=== PATIENT | male | born 1980 | race Caucasian/White ===

== ENCOUNTER 2024-06-29 01:57 | Inpatient (IN) | payer OTHER, SELFPAY ==
[2024-06-28 17:09] VITALS: BP 152/83
[2024-06-28 17:40] LABS: % Eosinophils 1.8 % (0-6); % Immature Granulocytes 0.6 % (0-0.5); % Lymphocytes 18.5 % (20.5-51.1); % Monocytes 8.7 % (1.7-9.3); % Neutrophils 69.4 % (42.2-75.2); Absolute Basophils 0.1 10^3/uL (0-0.2); Absolute Eosinophils 0.2 10^3/uL (0-0.7); Absolute Immature Granulocytes 0.1 10^3/uL (0-0.05); Absolute Lymphocytes 1.6 10^3/uL (1.2-3.4); Absolute Monocytes 0.8 10^3/uL (0.1-0.6); Absolute Neutrophils 6.1 10^3/uL (1.4-6.5); Hemoglobin 15.9 g/dL (13.0-18.0); Mean Corp Hgb Conc. 31.8 g/dL (33.0-37.0); Mean Corpuscular Hgb 27.5 pg (27.0-31.0); Mean Corpuscular Volume 86.4 fL (80.0-94.0); Mean Platelet Volume 11.3 fL (7.4-10.4); Nucleated Red Blood Cells % 0 % (-); Platelet Count 205 10^3/uL (130-400); Red Blood Cell Count 5.79 10^6/uL (4.70-6.10); Red Cell Dist. Width 14.6 % (11.5-14.5); White Blood Cell Count 8.7 10^3/uL (4.8-10.8)
[2024-06-28 17:42] LABS: ALT (SGPT) 30 U/L (0-50); AST (SGOT) 37 U/L (17-59); Albumin 3.9 g/dl (3.5-5.0); Alkaline Phosphatase 59 U/L (38-126); Blood Urea Nitrogen 16 mg/dl (9-20); Calcium 8.7 mg/dl (8.4-10.2); Carbon Dioxide 35 mmol/L (22-30); Chloride 100 mmol/L (98-107); Glucose 240 mg/dl (70-99); Potassium 4.1 mmol/L (3.5-5.1); Sodium 141 mmol/L (135-145); Total Bilirubin 0.6 mg/dl (0.2-1.3); Total Protein 6.7 g/dl (6.3-8.2); eGFR > 60.00
[2024-06-28 18:00] LABS: NT-proBNP 343 pg/ml
[2024-06-28 19:52] VITALS: BMI 60.2
[2024-06-28 20:00] VITALS: BP 151/90
--- NOTE | 2024-06-28 20:25 | PHANOTE ---
med [employer] tech(06/28/24)-Medication list compiled with pharmacy records in [facility], went over with patient to confirm most medications. Patient states he takes all medications in 1 dose around 1900 every day, and skips second dose on BID
medications.
--- NOTE | 2024-06-28 20:25 | ED.GENMED ---
History of Present Illness
<CAREN Quintana - Last Filed: 06/29/24 10:27>
General
Chief Complaint: Swelling
Source: patient
Exam Limitations: none
Time Seen by Provider: 06/28/24 19:56
Nursing documentation reviewed up to this point in time: agreed with
History of Present Illness
History of Present Illness:
Patient is a 44-year-old male past medical history of bipolar disorder PTSD presents to the ER for evaluation. Patient reports since February he has had increasing lower extremity swelling. He reports he has gained 60 pounds in the past 3 months is
now having difficulty getting around and walking is also short of breath. He was seen by his family doctor and was prescribed antibiotic and is on a water pill.
He denies any cardiac history.
Past History
<CAREN Quintana - Last Filed: 06/29/24 10:27>
Past History
ED Past Medical History: HTN, NIDDM and Psychiatric (Bipolar)
Social History
Tobacco: Non-smoker
Living: with family
Employment: Employed
Review of Systems
<CAREN Quintana - Last Filed: 06/29/24 10:27>
Review of Systems
Allergies reviewed?: Yes
All Other Systems: ROS reviewed and negative except as documented in HPI and ROS
Constitutional: Reports no symptoms
Phy Exam
<CAREN Quintana - Last Filed: 06/29/24 10:27>
General Physical Exam
General Presentation: no apparent distress
General age: appears older than age
General Skin: warm and dry
General Habitus: obese
General Mental: alert
General Hydration: appears well hydrated
Cardiovascular Exam
Cardiovascular Exam: regular rate/rhythm, no murmur and normal peripheral pulses
Pulmonary Exam
Pulmonary Exam: lungs clear and no respiratory distress
Neurological Exam
Neurological Exam: alert and oriented x3
Musculoskeletal Exam
Musculoskeletal Exam: other ( + swelling to b/l l/e into scrotum and abdomen ; abdomen and scrotum mildly red )
Skin Exam
Skin Exam: normal color and warm/dry
Psychiatric Exam
Psychiatric Exam: normal mood/affect
Scores
<CAREN Quintana - Last Filed: 06/29/24 10:27>
Heart Failure Risk
Heart Failure Risk Score: Not Applicable
Course
<CAREN Quintana - Last Filed: 06/29/24 10:27>
Orders/Labs/Results
Orders:
Orders
06/28/24 17:21
Complete Blood Count/With Diff Urgent
Comprehensive Metabolic Panel Urgent
NT-proBNP Urgent
TSH Reflex To Free T4 Urgent
Comment: ADD ON
06/28/24 20:00
Oxygen Therapy [O2 Therapy] [RESP] Urgent
Nasal Cannula Liter Flow: 2 LPM
Titrate/Wean O2 to maintain O2 sat greater than (%): 93
Wean Oxygen to Pre Admission Baseline Therapy-if applicable: Yes
Contact provider if nasal cannula O2 requirement > 6 liters: Yes
06/28/24 20:03
Electrocardiogram (*1) Urgent
Reason for Study: Shortness of Breath
EKG- Treatment ONCE
06/28/24 20:16
CXR2 [CR Chest - 2 Views ] Urgent
Comment:
Reason For Exam: shortness of breath and cough
06/28/24 20:26
Troponin I Urgent
06/28/24 21:18
CT Abd/pelvis W Iv Cont Urgent
Comment:
Reason For Exam: anascara
06/28/24 21:41
Furosemide [Lasix] 40 mg IV NOW STA
06/29/24 01:24
Add On- LAB Urgent
Tests Added?: TSH Reflex Free T4
06/29/24 01:26
Admit/Transfer Patient As Directed
Co-Sign Provider:
Level of Care: Inpatient admission
Assign to:: Telemetry
Physician / Group: Zacarias
Diagnosis: Anasarca
Reason for Telemetry: Acute Heart Failure
Date to Stop Telemetry: 07/02/24
Time to Stop Telemetry: 11:00
Reason for Hospitalization: Anasarca
Expected length of stay greater than two midnights?: Yes
ELOS- Estimated Length of Stay in days: 3
I certify the patient meets the requirements for IP care: Yes
PRN Pain Medication Management As Directed
May give lesser potent ordered pain med per pt: Yes
preference::
Protocol:: Medication orders for pain may be administered in a
manner that supports deferring to patient preference
when the pt is:
- Requesting an ordered lesser potent pain medication.
Least to most potent pain medications are defined
as: acetaminophen < NSAID < tramadol < opioids
(morphine, oxycodone, hydromorphone).
- Requesting a lesser dose of the same medication IF
ORDERED.
- Requesting a less intrusive route of administration
if both routes are prescribed by the provider (PO <
IV).
06/29/24 01:27
Code Status As Directed
Resuscitation Status: Full Code
06/29/24 01:57
Nicotine [Nicoderm Transdermal] 21 mg TRANSDERM NOW STA
06/29/24 03:53
Acetaminophen [Tylenol] 650 mg PO Q4HPRN PRN
Clonazepam [Klonopin] 0.5 mg PO Q6HPRN PRN
Dextrose 50%-Water [Dextrose 50% Syringe] 12.5 grams IV [id number] PRN
Glucagon [GlucaGen] 1 mg IM PRN PRN
06/29/24 03:53
Echo 2D MMode Doppler [Echo 2D MMode Color/Doppler] Routine
Reason for Study: Anasarca
CARDIOLOGY CONSULT Routine
Consulting Provider: Yvon Mak
Was physician already notified: No
Reason for consult: CHF
Consult Notification Routine
Specialty to Notify: Cardiology
Consult Notification Routine
Specialty to Notify: Pulmonary
PULMONARY CONSULT Routine
Consulting Provider: Shadi Hodge
Was physician already notified: No
Reason for consult: OHS / AHMET
Urine Protein/Creat Ratio (Random) [Protein/Creat Ratio (Random)] Routine
Activity As Directed
Activity Level: Ambulate
With Assistance
Bedside Glucose Monitoring As Directed
Frequency: AC&HS
Additional Instructions:: Change to q6h if pt on TPN, tube feeding or not eating
Bladder Scan As Directed
Follow Bladder Retention/Intermittent Cath Algorithm?: Yes
PRN if no void in __ hours: 6
Frequency: Per Retention Algorithm
If Bladder Scan Result >: 400
then:: Straight cath
EKG with chest pain [ECG as needed] As Directed
ECG as needed for:: Chest Pain
I/O [Intake/ Output] As Directed
Frequency: Per unit guidelines
Straight Cath As Directed
Frequency: Per Retention Algorithm
Additional Instructions: straight cath as needed per acute urinary retention algorithm for 24 hrs
Additional Instructions: for bladder scan greater than 400 mL
Vital Signs As Directed
Frequency: Per unit guidelines
Weight As Directed
Frequency: Daily
Oxygen Therapy [O2 Therapy] [RESP] Routine
Titrate/Wean O2 to maintain O2 sat greater than (%): 94
Ot Eval And Treat Routine
PT Consult [Pt Eval And Treat] Routine
Activity Level: Ambulate
With Assistance
DX Deep Vein Thrombosis Video Routine
06/29/24 Breakfast
2000 calorie (17 carb) Diabetic
At Your Request: Full Participation
Does patient need a safe tray?: No
Fluid Restriction: 1440 mL/day (48 oz)
06/29/24 06:18
Basic Metabolic Panel IN AM
Cardiovascular Evaluation IN AM
Complete Blood Count/No Diff IN AM
Glycohemoglobin (HgbA1c) IN AM
06/29/24 07:30
Insulin Aspart Corrective Low [Novolog Flexpen-Low Resistance] See Protocol SC AC
06/29/24 08:00
Enoxaparin Sodium [Lovenox] 40 mg SC BID
Furosemide [Lasix] 40 mg IV BID AT 0800,1600
06/29/24 19:00
Atorvastatin [Lipitor] 10 mg PO DAILY@1900
Clonidine [Catapres] 0.3 mg PO DAILY@1900
ziprasidone HCl 80 mg PO DAILY@1900
07/02/24 11:00
DC Protocol for Telemetry ONCE
Abnormal Lab Results
06/28/24
17:21
MCHC 31.8 L g/dL
(33.0-37.0)
RDW 14.6 H %
(11.5-14.5)
MPV 11.3 H fL
(7.4-10.4)
Abs Immat Gran (auto) 0.1 H 10^3/uL
(0-0.05)
Absolute Monos (auto) 0.8 H 10^3/uL
(0.1-0.6)
Immature Gran % 0.6 H %
(0-0.5)
Lymphocytes % 18.5 L %
(20.5-51.1)
Carbon Dioxide 35 H mmol/L
(22-30)
Glucose 240 H mg/dl
(70-99)
06/28/24 17:21
06/28/24 17:21
Vital Signs
Initial and Last Documented VS:
Initial Vital Signs
Temp Pulse Resp BP Pulse Ox
98.6 F 82 16 152/83 92
06/28/24 17:09 06/28/24 17:09 06/28/24 17:09 06/28/24 17:09 06/28/24 17:09
Last Documented Vital Signs
Temp Pulse Resp BP Pulse Ox
98.3 F 86 20 138/78 94
06/29/24 09:50 06/29/24 09:53 06/29/24 09:50 06/29/24 09:53 06/29/24 07:55
Walking Dragline Operator consulted with Physician
Walking Dragline Operator consulted with physician?: Yes
Name of Physician Consulted: gordy
<Libia Valente MD - Last Filed: 06/29/24 01:52>
Orders/Labs/Results
Orders:
Orders
06/28/24 17:21
Complete Blood Count/With Diff Urgent
Comprehensive Metabolic Panel Urgent
NT-proBNP Urgent
TSH Reflex To Free T4 Urgent
Comment: ADD ON
06/28/24 20:00
Oxygen Therapy [O2 Therapy] [RESP] Urgent
Nasal Cannula Liter Flow: 2 LPM
Titrate/Wean O2 to maintain O2 sat greater than (%): 93
Wean Oxygen to Pre Admission Baseline Therapy-if applicable: Yes
Contact provider if nasal cannula O2 requirement > 6 liters: Yes
06/28/24 20:03
Electrocardiogram (*1) Urgent
Reason for Study: Shortness of Breath
EKG- Treatment ONCE
06/28/24 20:16
CXR2 [CR Chest - 2 Views ] Urgent
Comment:
Reason For Exam: shortness of breath and cough
06/28/24 20:26
Troponin I Urgent
06/28/24 21:18
CT Abd/pelvis W Iv Cont Urgent
Comment:
Reason For Exam: anascara
06/28/24 21:41
Furosemide [Lasix] 40 mg IV NOW STA
06/29/24 01:24
Add On- LAB Urgent
Tests Added?: TSH Reflex Free T4
06/29/24 01:26
Admit/Transfer Patient As Directed
Co-Sign Provider:
Level of Care: Inpatient admission
Assign to:: Telemetry
Physician / Group: Zacarias
Diagnosis: Anasarca
Reason for Telemetry: Acute Heart Failure
Date to Stop Telemetry: 07/02/24
Time to Stop Telemetry: 11:00
Reason for Hospitalization: Anasarca
Expected length of stay greater than two midnights?: Yes
ELOS- Estimated Length of Stay in days: 3
I certify the patient meets the requirements for IP care: Yes
PRN Pain Medication Management As Directed
May give lesser potent ordered pain med per pt: Yes
preference::
Protocol:: Medication orders for pain may be administered in a
manner that supports deferring to patient preference
when the pt is:
- Requesting an ordered lesser potent pain medication.
Least to most potent pain medications are defined
as: acetaminophen < NSAID < tramadol < opioids
(morphine, oxycodone, hydromorphone).
- Requesting a lesser dose of the same medication IF
ORDERED.
- Requesting a less intrusive route of administration
if both routes are prescribed by the provider (PO <
IV).
06/29/24 01:27
Code Status As Directed
Resuscitation Status: Full Code
06/29/24 01:57
Nicotine [Nicoderm Transdermal] 21 mg TRANSDERM NOW STA
06/29/24 03:53
Acetaminophen [Tylenol] 650 mg PO Q4HPRN PRN
Clonazepam [Klonopin] 0.5 mg PO Q6HPRN PRN
Dextrose 50%-Water [Dextrose 50% Syringe] 12.5 grams IV [id number] PRN
Glucagon [GlucaGen] 1 mg IM PRN PRN
06/29/24 03:53
Echo 2D MMode Doppler [Echo 2D MMode Color/Doppler] Routine
Reason for Study: Anasarca
CARDIOLOGY CONSULT Routine
Consulting Provider: Yvon Mak
Was physician already notified: No
Reason for consult: CHF
Consult Notification Routine
Specialty to Notify: Cardiology
Consult Notification Routine
Specialty to Notify: Pulmonary
PULMONARY CONSULT Routine
Consulting Provider: Shadi Hodge
Was physician already notified: No
Reason for consult: OHS / AHMET
Urine Protein/Creat Ratio (Random) [Protein/Creat Ratio (Random)] Routine
Activity As Directed
Activity Level: Ambulate
With Assistance
Bedside Glucose Monitoring As Directed
Frequency: AC&HS
Additional Instructions:: Change to q6h if pt on TPN, tube feeding or not eating
Bladder Scan As Directed
Follow Bladder Retention/Intermittent Cath Algorithm?: Yes
PRN if no void in __ hours: 6
Frequency: Per Retention Algorithm
If Bladder Scan Result >: 400
then:: Straight cath
EKG with chest pain [ECG as needed] As Directed
ECG as needed for:: Chest Pain
I/O [Intake/ Output] As Directed
Frequency: Per unit guidelines
Straight Cath As Directed
Frequency: Per Retention Algorithm
Additional Instructions: straight cath as needed per acute urinary retention algorithm for 24 hrs
Additional Instructions: for bladder scan greater than 400 mL
Vital Signs As Directed
Frequency: Per unit guidelines
Weight As Directed
Frequency: Daily
Oxygen Therapy [O2 Therapy] [RESP] Routine
Titrate/Wean O2 to maintain O2 sat greater than (%): 94
Ot Eval And Treat Routine
PT Consult [Pt Eval And Treat] Routine
Activity Level: Ambulate
With Assistance
DX Deep Vein Thrombosis Video Routine
06/29/24 Breakfast
2000 calorie (17 carb) Diabetic
At Your Request: Full Participation
Does patient need a safe tray?: No
Fluid Restriction: 1440 mL/day (48 oz)
06/29/24 06:18
Basic Metabolic Panel IN AM
Cardiovascular Evaluation IN AM
Complete Blood Count/No Diff IN AM
Glycohemoglobin (HgbA1c) IN AM
06/29/24 07:30
Insulin Aspart Corrective Low [Novolog Flexpen-Low Resistance] See Protocol SC AC
06/29/24 08:00
Enoxaparin Sodium [Lovenox] 40 mg SC BID
Furosemide [Lasix] 40 mg IV BID AT 0800,1600
06/29/24 19:00
Atorvastatin [Lipitor] 10 mg PO DAILY@1900
Clonidine [Catapres] 0.3 mg PO DAILY@1900
ziprasidone HCl 80 mg PO DAILY@1900
07/02/24 11:00
DC Protocol for Telemetry ONCE
Abnormal Lab Results
06/28/24
17:21
MCHC 31.8 L g/dL
(33.0-37.0)
RDW 14.6 H %
(11.5-14.5)
MPV 11.3 H fL
(7.4-10.4)
Abs Immat Gran (auto) 0.1 H 10^3/uL
(0-0.05)
Absolute Monos (auto) 0.8 H 10^3/uL
(0.1-0.6)
Immature Gran % 0.6 H %
(0-0.5)
Lymphocytes % 18.5 L %
(20.5-51.1)
Carbon Dioxide 35 H mmol/L
(22-30)
Glucose 240 H mg/dl
(70-99)
06/28/24 17:21
06/28/24 17:21
Vital Signs
Initial and Last Documented VS:
Initial Vital Signs
Temp Pulse Resp BP Pulse Ox
98.6 F 82 16 152/83 92
06/28/24 17:09 06/28/24 17:09 06/28/24 17:09 06/28/24 17:09 06/28/24 17:09
Last Documented Vital Signs
Temp Pulse Resp BP Pulse Ox
98.3 F 86 20 138/78 94
06/29/24 09:50 06/29/24 09:53 06/29/24 09:50 06/29/24 09:53 06/29/24 07:55
<CAREN Quintana - Last Filed: 06/29/24 10:27>
MDM/Problems Addressed
MDM/Problems Addressed:
Patient is a 44-year-old male who presents to the ER for evaluation of increasing swelling to abdomen testicles and lower extremities. He reports he is gained 60 pounds in the past 3 days have a difficulty walking caring for himself. On exam he is
mildly hypoxic however likely from girth. Nasal cannula oxygen was applied. He denies any fevers his white count is normal,, his chemistries are normal his BNP is 343. BS elevated .
Examined with DR Valente will order ct of abdomen.
Will order IV Lasix. Care of patient at this time transferred to DR Valente
<CAREN Quintana - Last Filed: 06/29/24 10:27>
*Critical Care Note
Total Time (30-74mins, 75-104mins- exclusive of procedures): Not Applicable
ED Attending Note
<CAREN Quintana - Last Filed: 06/29/24 10:27>
-
Portions of this chart may have been created with voice recognition software.� Occasional wrong word or��sound alike� substitutions may have occurred due to the inherent limitations of voice recognition software.
<Libia Valente MD - Last Filed: 06/29/24 01:52>
ED Attending Note
Patient seen and examined by attending physician: Yes
I performed the substantive portion of visit, reviewed & personally made and approve the management plan that is documented in note by myself or LEONORA.: Yes
ED Attending Note:
44-year-old male with progressive weight gain of up to 60 pounds over the last several months associated with scrotal swelling and abdominal swelling. Patient having difficulty performing ADLs, hygiene, etc. due to limitations caused by swelling.
To me denies dyspnea, cough, sore throat, rhinorrhea, fever, chills. He can urinate but only if he sits down. On exam, patient appears to have anasarca, scrotal swelling noted.
ct REPORT (VISION) no definite acute finding, no ascites, liver enlarged with probably steatosis and cirrhosis not excluded. Nl spleen size. No venous distention to suggest gross thrombosis.
Pt with progressive anasarca, without assoc ascites. Concerns related to ?etiology, mild hypoxia, inability to care for self fully at home due to increasing weight, and ?mild cellulitis at scrotal area extend sl superiorly. Do not clinically
suspect Meagan's.
D/w Dr Adames, will admit.
Of note, pt requesting cigarette, will leave AMA if can not have one now. Reluctantly, we will try to have security accompany pt to car to have one, then return for continued care and nicotine patch.
Discharge Plan
Departure
Patient Disposition: Admit
Date of Disposition: 06/29/24
Time of Disposition: 01:52
Presentation/result/management discussed w/ accepting MD/DO: Hospitalist
Condition: Fair
Discharge Problem:
Anasarca
Interventions
Interventions:
*Risk Screen - Suicide Last Done: 06/29/24 04:22
*General Assessment Last Done: 06/28/24 19:54
*Neglect/Abuse Screening Last Done: 06/28/24 17:13
ED- Fall Risk Assessment Last Done: 06/28/24 20:08
*ED COVID-19 Vaccine History Last Done: 06/29/24 04:22
*Nursing Disposition Last Done: 06/29/24 02:52
ED- Cardiac Assessment Last Done: 06/28/24 20:08
ED- Pulmonary Assessment Last Done: 06/28/24 20:08
ED-Skin Assessment Last Done: 06/28/24 20:08
Discharge Date and Time
Discharge Date/Time: 06/29/24 03:48
[2024-06-28 20:59] LABS: Troponin I < 0.012 ng/ml
[2024-06-28 21:00] VITALS: BP 137/72
[2024-06-28 22:01] VITALS: BP 125/78
[2024-06-28 23:00] VITALS: BP 126/78
[2024-06-28] MEDS: LASIX 40 MG IV (23:40)
[2024-06-29] VITALS (10 sets, daily range): BP systolic 101–178; BP diastolic 46–88; PULSE 86; O2SAT 96; BMI 58.7
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
[2024-06-29] MEDS: NICODERM TRANSDERMAL 21 MG TRANSDERM ×2 (02:03→21:28)
[2024-06-29 06:56] LABS: Hematocrit 49.6 % (39.0-52.0); Hemoglobin 15.4 g/dL (13.0-18.0); Mean Corpuscular Hgb 27.3 pg (27.0-31.0); Mean Corpuscular Volume 87.8 fL (80.0-94.0); Mean Platelet Volume 10.9 fL (7.4-10.4); Platelet Count 200 10^3/uL (130-400); Red Blood Cell Count 5.65 10^6/uL (4.70-6.10); Red Cell Dist. Width 14.6 % (11.5-14.5); White Blood Cell Count 10.2 10^3/uL (4.8-10.8)
[2024-06-29 07:10] LABS: Glucose - Point of Care 130 mg/dl (70-99)
[2024-06-29] MEDS: NOVOLOG FLEXPEN-LOW RESISTANCE SC ×2 (07:30→17:15)
[2024-06-29 07:34] LABS: Blood Urea Nitrogen 14 mg/dl (9-20); Calcium 8.5 mg/dl (8.4-10.2); Carbon Dioxide 38 mmol/L (22-30); Chloride 97 mmol/L (98-107); Estimated Creatinine Clearance > 125 ml/min; Glucose 128 mg/dl (70-99); HDL Cholesterol 31 mg/dl; LDL Cholesterol, Calculated 56 mg/dl; Potassium 3.9 mmol/L (3.5-5.1); Sodium 142 mmol/L (135-145); Total Cholesterol 115 mg/dl (50-199); Triglyceride 141 mg/dl (10-149); Very Low Density Lipoprotein 28 mg/dl (0-30); eGFR > 60.00
--- NOTE | 2024-06-29 07:41 | W.PN.HOSP.TC ---
Today's Communication/Plan
-
cont diuresis
blood pressure control
nocturnal oxygenation study, ABG in AM
PT/OT
Assessment / Plan
Assessment / Plan
Physical Exam
General: no acute distress. Appears comfortable at this time Morbidly Obese
HEENT: Thick neck. No noted JVD. No evident thyromegaly / nodules
Respiratory: Clear to auscultation. No wheezes crackles rhonchi
Cardiac: S1/S2 and Regular Rhythm; No Murmur
GI: Non Tender, Normal Bowel Sounds Induration / mild erythema / abdominal wall edema in the lower abdomen
Musculoskeletal: lower ext pitting edema +2 b/l
Neuro: AO x 3
A/P: Patient is a 44y M with PMH significant for PTSD and obesity who presents to ED complaining of progressive LE edema and fatigue x several months.
Anasarca
- Admit for further evaluation and treatment.
- Renal function appears normal on initial labs.
- Differential includes hepatic failure / cirrhosis, CHF, thyroid impairment, etc.
- TSH wnl
- ECHO pending
-Cardiology eval appreciated cont IV diuresis
- Body habitus is suspicious for AHMET and likely obesity hypoventilation as well.
- Pulmonary eval appreciated nocturnal oxygenation study, ABG in AM
- I/Os, daily weights
Hypoxemic Respiratory Insufficiency resolved (possibly 2/2 heart failure)
- SpO2 in the ED 88% on room air and improved on supplemental oxygen.
- No subjective complaints of dyspnea at rest.
- weaned off oxygen supplementation
- Echo / Pulm eval as noted above.
Benign Hypertension
- BP stable at present.
- Hold most BP medication to allow for effective diuresis.
- Adjust regimen as needed for adequate control.
- Hold amlodipine given significant edema.
-valsartan bystolic resumed as per cardio
- cont clonidine
DM-II
- Elevated glucose on initial labs.
- Discontinue pioglitazone which exacerbates volume overload.
- Hold other PO medications acutely.
- SSI coverage.
- A1C. appreciated 9.7
Bipolar Disorder
PTSD
- Continue current med regimen including Zonegran, clonidine, etc.
- Clonazepam changed to PRN.
- Follow for any changes in mood / new symptoms.
Morbid Obesity
- Weight gain of 60 lbs in the past year.
- Affects all aspects of care and evaluate for obesity related breathing issues as noted above.
- Encourage healthy diet and increased activity with goal of weight loss.
PT/OT home with home services
DVT Prophylaxis: High dose Lovenox given BMI.
Code Status: Full
I spent a total of 50 minutes with the patient or on the floor. More than 50% of this time involved counseling and coordination of care.
Anticipated Discharge: 24 - 48 hours
Subjective/Interval History
-
Date of Service: June 29, 2024
No acute distress ambulating without issues. Reports overall improvement in symptoms including shortness of breath.
Objective Data
-
Labs:
Laboratory Results
06/29/24
06:18
WBC 10.2
Hgb 15.4
Hct 49.6
Plt Count 200
Sodium 142
Potassium 3.9
Chloride 97 L
Carbon Dioxide 38 H
BUN 14
Creatinine 0.8
Glucose 128 H
Calcium 8.5
Vital Signs:
Vital Signs
Temp Pulse Resp BP Pulse Ox
98.2 F 82 24 124/77 95
06/29/24 04:15 06/29/24 04:15 06/29/24 04:15 06/29/24 04:15 06/29/24 04:55
I&O
06/28/24 06/29/24 06/30/24
06:59 06:59 05:59
Output Total 650 / 650
Balance -650 / -650
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
[2024-06-29] MEDS: LASIX 40 MG IV ×2 (08:32→16:08)
[2024-06-29] MEDS: LOVENOX 40 MG SC ×2 (08:33→20:45)
[2024-06-29 08:35] LABS: Glycohemoglobin (HgbA1c) 8.7 % (4.0-5.6)
[2024-06-29] MEDS: DESENEX/MITRAZOL/ZEASORB 1 APPLIC TOPICAL ×2 (09:52→20:45)
[2024-06-29] MEDS: DIOVAN 80 MG PO (09:53)
[2024-06-29 11:46] LABS: Glucose - Point of Care 154 mg/dl (70-99)
[2024-06-29] MEDS: NOVOLOG FLEXPEN-LOW RESISTANCE 1 UNITS SC (12:20)
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
[2024-06-29] MEDS: TYLENOL 650 MG PO ×2 (13:51→20:54)
--- NOTE | 2024-06-29 14:10 | CON.PUL ---
Consultation
Consultation Request
Date/Time Consultation Requested: 06/29
Date/Time Consultation Performed: 06/29
Reason for Consultation: Possible sleep apnea
Medical History
-
History of Present Illness:
History obtained from the chart and from the patient. Patient is a 44-year-old male with history of bipolar disorder, PTSD. He admits to gaining 60 pounds over the past year. He is taking care of his elderly mother who is sick but he states that
this will be ending soon. He notes increased lower extremity swelling, fatigue. He also admits to excessive daytime sleepiness. He denies any falls, obvious PND, orthopnea. He normally sleeps on his side. Upon arrival to [facility],
afebrile, pulse 82, breathing at 16, blood pressure 152/83, 92%. Serum bicarbonate noted to be 38. Troponin negative. We are asked to comment on pulmonary process
Patient states he has had 'multiple' sleep studies in the past. He was told he does not have sleep apnea. 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 He also admits to night terrors and insomnia. He is never seen a sleep
specialist
.
PMH: History of PTSD, morbid obesity, hypertension, diabetes, bipolar disorder.
Past Medical History
Past Medical History: None (See above)
Past Surgical History: None (See above)
Social History
Tobacco: Smoker (2 packs a day for 20 years, [id number] ongoing)
Alcohol: None
Drug: None
Personal: Single
Living: With Family (Lives with his mother)
Employment: Not Employed
Family History
Family History: Other (No family history of lung disease)
Allergies / Home Medications
Allergies
Allergy/AdvReac Type Severity Reaction Status Date / Time
whole milk Allergy Hives Uncoded 06/21/19 12:09
Home Medications
�Medication �Instructions �Recorded �Confirmed �Last Taken �Type
jwlttzp-nkzvthlrg-ybsa 333 mg-133 1 ea PO DAILY@1900 Supplement 06/24/16 06/28/24 06/24/16 History
mg-8.3 mg tablet
clonazepam 1 mg tablet 1 mg PO DAILY@1900 Mental 06/24/16 06/28/24 06/24/16 History
Health/Anxiety
clonidine HCl 0.3 mg tablet 0.3 mg PO DAILY@1900 Blood Pressure 06/24/16 06/28/24 06/23/16 History
amlodipine 10 mg tablet 10 mg PO DAILY@1900 Blood Pressure 06/28/24 06/28/24 Unknown History
atorvastatin 10 mg tablet 10 mg PO DAILY@1900 High 06/28/24 06/28/24 Unknown History
Cholesterol
ciprofloxacin HCl 500 mg tablet 500 mg PO DAILY@1900 Infection 06/28/24 06/28/24 Unknown History
(Cipro)
furosemide 20 mg tablet 20 mg PO DAILY@1900 Fluid 06/28/24 06/28/24 Unknown History
Retention/Swelling
gabapentin 100 mg capsule 100 mg PO DAILY@1900 Neurological 06/28/24 06/28/24 Unknown History
Condition
glimepiride 4 mg tablet 4 mg PO DAILY@1900 Diabetes 06/28/24 06/28/24 Unknown History
nebivolol 10 mg tablet 10 mg PO DAILY@1900 Blood Pressure 06/28/24 06/28/24 Unknown History
pioglitazone 30 mg tablet 30 mg PO DAILY@1900 Diabetes 06/28/24 Unknown History
sitagliptin phos 100 mg-metformin 1 tab PO DAILY@1900 Diabetes 06/28/24 06/28/24 Unknown History
ER 1,000 mg tablet,extend rel 24h
mp (Janumet XR)
valsartan 320 1 tab PO DAILY@1900 Blood Pressure 06/28/24 06/28/24 Unknown History
mg-hydrochlorothiazide 25 mg tablet
ziprasidone HCl 80 mg capsule 80 mg PO DAILY@1900 Mental 06/28/24 06/28/24 Unknown History
Health/Anxiety
Review of Systems
Vitals / Labs / Diagnostic Testing
Vital Signs
Temp Pulse Resp BP Pulse Ox
98.3 F 85 16 137/73 94
06/29/24 11:30 06/29/24 11:30 06/29/24 11:30 06/29/24 11:30 06/29/24 11:30
Lab Data
06/29/24 06:18
06/29/24 06:18
Diagnostic Testing:
Physical Exam
-
HEENT: Normocephalic and Other (Morbidly obese, injected conjunctiva)
Cardiovascular: S1/S2, Regular Rhythm, Murmur (n), Rub (n) and Peripheral Edema (Chronic venous stasis changes, 2+)
Respiratory: Wheeze (n), Rales (n), Rhonchi (n), Non-Labored Respirations and Other (Decreased breath sounds)
GI: Soft, Non Distended (Morbidly obese) and Non Tender
Neurology: Awake, Alert and No Motor Deficits (Generally weak, moves all extremities)
Skin: Other (No cyanosis, no clubbing)
General: Comfortable
Assessment
-
44-year-old male with 13-oogg-cpuw history of smoking ongoing, 60 pound weight gain over the past year, hypertension, bipolar disorder/PTSD you presents with lower extremity swelling, fatigue. Blood work suggest CO2 retention/sleep disorder. We
are asked to comment on pulmonary process
Excessive daytime sleepiness, fatigue
60 pound weight gain x 1 year
Elevated serum bicarbonate
Suspected obesity hypoventilation syndrome
Conditions present prior to admission
PTSD/bipolar disorder
Hypertension
Diabetes
Ongoing smoking, 40+ pack year
Smokes 2 packs a day
Plan/recommendations
At this time, patient appears to be comfortable
Unfortunately, it appears that his PTSD has limited his ability to follow through with sleep evaluation in the past
He started off by saying, 'I have PTSD' when asked about sleep apnea workup. But then proceeded to state he has had multiple tests in the past all negative. His last test was 5 years ago
Moving forward
I suggested that we will need to repeat his sleep study
For now lets check nocturnal oximetry tonight
Check ABG in the morning on room air
Echocardiogram is pending
He would benefit from eventual follow-up in the sleep clinic
This was discussed
We also discussed importance of tobacco cessation
This will also be an ongoing discussion
Eventual outpatient sleep evaluation/PFT
Obviously weight loss measures will be important to pursue as well
Cardiology also following
We will continue to follow with you
[2024-06-29 16:47] LABS: Glucose - Point of Care 148 mg/dl (70-99)
[2024-06-29 18:55] LABS: Protein/creatinine Ratio 0.3; Urine Protein 11 mg/dl
[2024-06-29] MEDS: LIPITOR 10 MG PO (20:42)
[2024-06-29] MEDS: KLONOPIN 0.5 MG PO (20:42)
[2024-06-29] MEDS: CATAPRES 0.3 MG PO (20:42)
[2024-06-29] MEDS: BYSTOLIC 10 MG PO (20:42)
[2024-06-29] MEDS: GEODON 80 MG PO (20:44)
[2024-06-29 21:49] LABS: Glucose - Point of Care 132 mg/dl (70-99)
[2024-06-30 03:28] VITALS: BP 123/64
[2024-06-30 04:57] VITALS: BMI 56.6
[2024-06-30 05:49] LABS: B.E. 9.9 mmol/L; HCO3 37.4 mmol/L (21-28); O2 Saturation % 86.8 % (94-98); PCO2 59 mmHg (35-48); pH 7.41 (7.35-7.45)
[2024-06-30 05:50] LABS: O2 Therapy ROOM AIR; PO2 50 mmHg (83-108)
[2024-06-30 06:32] LABS: Hematocrit 50.6 % (39.0-52.0); Mean Corp Hgb Conc. 31.6 g/dL (33.0-37.0); Mean Corpuscular Hgb 27.2 pg (27.0-31.0); Mean Corpuscular Volume 85.9 fL (80.0-94.0); Mean Platelet Volume 11.1 fL (7.4-10.4); Platelet Count 213 10^3/uL (130-400); Red Blood Cell Count 5.89 10^6/uL (4.70-6.10); Red Cell Dist. Width 14.5 % (11.5-14.5)
--- NOTE | 2024-06-30 06:40 | W.PN.HOSP.TC ---
Today's Communication/Plan
-
cont diuresis
PT/OT
nocturnal oxygenation study as per Pulm
daily weight
Follow up ECHO Monday
Blood Pressure control
Glycemic control
Assessment / Plan
Assessment / Plan
Physical Exam
General: no acute distress. Appears comfortable at this time. Morbidly Obese
HEENT: Thick neck. No noted JVD. On nasal cannula supplementation
Respiratory: Clear to auscultation. No wheezes crackles rhonchi
Cardiac: S1/S2 and Regular Rhythm; No Murmur
GI: Non Tender, Normal Bowel Sounds Induration / mild erythema / abdominal wall edema in the lower abdomen
Musculoskeletal: lower ext pitting edema +2 b/l
Neuro: AO x 3
A/P: Patient is a 44y M with PMH significant for PTSD and obesity who presents to ED complaining of progressive LE edema and fatigue x several months.
Anasarca
Hypoxemic Respiratory Insufficiency likely multifactorial d/t AHMET and Heart Failure possible underlying COPD
- Admit for further evaluation and treatment.
- Renal function appears normal on initial labs.
- suspect d/t Heart Failure unspecified type
- TSH wnl
- ECHO pending
-Cardiology eval appreciated cont IV diuresis
- Pulmonary eval appreciated nocturnal oxygenation study noted significant desaturation overnight, ABG in AM noted hypercarbia and hypoxia, likely AHMET
repeating nocturnal oximetry w/ 2L
bedside spirometry in AM
outpt follow up for sleep study
- I/Os, daily weights
Hypertension
- Adjust regimen as needed for adequate control.
- Hold amlodipine given significant edema.
-cont clonidine valsartan Lasix bystolic w/ holding parameters
DM-II
- Elevated glucose on initial labs.
- Discontinue pioglitazone which exacerbates volume overload.
- Hold other PO medications acutely.
- SSI coverage.
- A1C. appreciated 9.7
Bipolar Disorder
PTSD
- Continue current med regimen including Zonegran, clonidine
- Clonazepam changed to PRN.
- Follow for any changes in mood / new symptoms.
Morbid Obesity
- Weight gain of 60 lbs in the past year.
- Affects all aspects of care and evaluate for obesity related breathing issues as noted above.
- Encourage healthy diet and increased activity with goal of weight loss.
Boil right armpit area 1 inch diameter per nurse
-Consider General Surgery Eval Monday for bedside I&D
Tobacco Use
-nicotine supplementation
-smoking cessation counseled
PT/OT eval appreciated home with home services
DVT Prophylaxis: High dose Lovenox given BMI.
Code Status: Full
I spent a total of 50 minutes with the patient or on the floor. More than 50% of this time involved counseling and coordination of care.
Anticipated Discharge: 24 - 48 hours
Subjective/Interval History
-
Date of Service: June 30, 2024
Seen and examined at bedside in no acute distress sitting up comfortably in bed. Patient reports feeling well, noting significant improvement in his symptoms and weight loss.
Objective Data
-
Labs:
Laboratory Results
06/30/24 06/30/24
05:38 05:50
WBC 8.0
Hgb 16.0
Hct 50.6
Plt Count 213
HCO3 37.4 H
Sodium Pending
Potassium Pending
Chloride Pending
Carbon Dioxide Pending
BUN Pending
Creatinine Pending
Glucose Pending
Calcium Pending
Vital Signs:
Vital Signs
Temp Pulse Resp BP Pulse Ox
98.0 F 82 24 123/64 85
06/30/24 03:28 06/30/24 03:28 06/30/24 03:28 06/30/24 03:28 06/30/24 03:28
I&O
06/28/24 06/29/24 06/30/24
06:59 06:59 05:59
Intake Total 1140 / 1140
Output Total 650 / 650 600 / 600
Balance -650 / -650 540 / 540
[2024-06-30 06:57] LABS: Blood Urea Nitrogen 13 mg/dl (9-20); Calcium 8.8 mg/dl (8.4-10.2); Carbon Dioxide 38 mmol/L (22-30); Chloride 97 mmol/L (98-107); Estimated Creatinine Clearance > 125 ml/min; Glucose 182 mg/dl (70-99); Magnesium 2.2 mg/dl (1.6-2.3); Phosphorus 2.9 mg/dl (2.5-4.5); Potassium 3.9 mmol/L (3.5-5.1); Sodium 140 mmol/L (135-145); eGFR > 60.00
[2024-06-30 07:01] LABS: Glucose - Point of Care 163 mg/dl (70-99)
[2024-06-30] MEDS: BYSTOLIC 10 MG PO (07:41)
[2024-06-30] MEDS: NOVOLOG FLEXPEN-LOW RESISTANCE 1 UNITS SC ×3 (07:41→17:21)
[2024-06-30] MEDS: LOVENOX 40 MG SC ×2 (07:42→19:41)
[2024-06-30] MEDS: LASIX 40 MG IV ×2 (07:42→15:30)
[2024-06-30] MEDS: NICODERM TRANSDERMAL 21 MG TRANSDERM (07:43)
[2024-06-30] MEDS: DESENEX/MITRAZOL/ZEASORB 1 APPLIC TOPICAL ×2 (07:44→19:44)
[2024-06-30] MEDS: DIOVAN 80 MG PO (07:44)
[2024-06-30 07:50] VITALS: BP 157/90
[2024-06-30 11:34] VITALS: BP 157/86
[2024-06-30 12:10] LABS: Glucose - Point of Care 189 mg/dl (70-99)
--- NOTE | 2024-06-30 12:47 | W.PN.PUL3 ---
Today's Communication / Plan
-
Bedside spirometry in a.m.
Will require nocturnal oxygen at time of discharge
Will repeat nocturnal oximetry on 2 L tonight
May benefit from maintenance inhaler therapy
Tobacco cessation efforts
Needs follow-up in the sleep clinic
Assessment
-
44-year-old male with 01-gprd-nogc history of smoking ongoing, 60 pound weight gain over the past year, hypertension, bipolar disorder/PTSD you presents with lower extremity swelling, fatigue. Blood work suggest CO2 retention/sleep disorder. We
are asked to comment on pulmonary process
Excessive daytime sleepiness, fatigue
60 pound weight gain x 1 year
Elevated serum bicarbonate
Suspected obesity hypoventilation syndrome
Conditions present prior to admission
PTSD/bipolar disorder
Hypertension
Diabetes
Ongoing smoking, 40+ pack year
Smokes 2 packs a day
Plan/recommendations
At this time, patient appears to be comfortable
Unfortunately, it appears that his PTSD has limited his ability to follow through with sleep evaluation in the past
He started off by saying, 'I have PTSD' when asked about sleep apnea workup. But then proceeded to state he has had multiple tests in the past all negative. His last test was 5 years ago
Nocturnal oximetry severely abnormal
ABG consistent with chronic CO2 retention
Moving forward
I suggested that we will need to repeat his sleep study
Set up home oxygen at night
When closer to discharge, will consider nocturnal oximetry on 2 L
Echocardiogram is pending
He would benefit from eventual follow-up in the sleep clinic
ABG reviewed
Patient is agreeable
We also discussed importance of tobacco cessation
This will also be an ongoing discussion
Eventual outpatient sleep evaluation/PFT
Will check baseline spirometry 07/01
Obviously weight loss measures will be important to pursue as well
Cardiology also following
Disposition efforts
Subjective Data
-
Date of Service:
Date of Service: June 30, 2024
Subjective:
Patient states he slept the best he is slept in a while over the last few days. Denies chest pain. He is yawning during my interview. Denies nausea, abdominal pain
Objective Data
Data Reviewed
Vital Signs / I&O / Oxygen:
Vital Signs
Temp Pulse Resp BP Pulse Ox
98.4 F 68 28 157/86 93
06/30/24 11:34 06/30/24 11:34 06/30/24 11:34 06/30/24 11:34 06/30/24 11:34
Intake and Output
06/29/24 06/30/24 07/01/24
07:59 06:59 06:59
Intake Total
Output Total
Balance
SaO2 93
Nasal Cannula flow liters per 4
minute
Physical Exam
General: Comfortable and Other (Large neck)
HEENT: Normocephalic, Anicteric and Other (Injected conjunctiva)
Cardiovascular: S1-S2, Regular Rhythm and Murmur (n)
Respiratory: Wheeze (Few scattered), Crackles (n), Rhonchi (Few at base) and Non-Labored Respirations
GI: Soft, Non Distended (Morbidly obese) and Non Tender
Neurology: Awake, Alert and No Motor Deficits
Skin: Cyanosis (n), Jaundice (n) and Rash (Chronic venous stasis changes)
Labs/Micro/Reports
Lab Data
06/30/24 05:50
06/30/24 05:50
Laboratory Results
06/30/24
05:38
pH 7.41
pCO2 59 H
pO2 50 L*
HCO3 37.4 H
O2 Delivery Level Room air
[2024-06-30] MEDS: TYLENOL 650 MG PO ×2 (14:51→19:41)
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
[2024-06-30 15:25] VITALS: BP 143/74
[2024-06-30 16:56] LABS: Glucose - Point of Care 193 mg/dl (70-99)
[2024-06-30] MEDS: CATAPRES 0.3 MG PO (18:39)
[2024-06-30] MEDS: GEODON 80 MG PO (18:39)
[2024-06-30] MEDS: LIPITOR 10 MG PO (18:39)
[2024-06-30] MEDS: NEURONTIN 100 MG PO (18:39)
[2024-06-30 19:30] VITALS: BP 134/70
[2024-06-30] MEDS: KLONOPIN 0.5 MG PO (20:19)
[2024-06-30] MEDS: POLYSPORIN OINTMENT 1 APPLIC TOPICAL (20:21)
[2024-06-30 21:15] LABS: Glucose - Point of Care 174 mg/dl (70-99)
[2024-06-30 23:49] VITALS: BP 114/62
[2024-07-01] VITALS (7 sets, daily range): BP systolic 126–146; BP diastolic 66–85; PULSE 2–89; BMI 56.0
[2024-07-01] MEDS: LOVENOX 40 MG SC ×2 (07:18→20:38)
[2024-07-01] MEDS: BYSTOLIC 10 MG PO (07:19)
[2024-07-01] MEDS: LASIX 40 MG IV ×2 (07:19→15:42)
[2024-07-01] MEDS: DIOVAN 80 MG PO (07:19)
[2024-07-01] MEDS: KLONOPIN 0.5 MG PO ×2 (07:19→18:13)
[2024-07-01] MEDS: NICODERM TRANSDERMAL 21 MG TRANSDERM (07:19)
[2024-07-01] MEDS: DESENEX/MITRAZOL/ZEASORB 1 APPLIC TOPICAL ×2 (07:20→20:39)
[2024-07-01] MEDS: NOVOLOG FLEXPEN-LOW RESISTANCE 2 UNITS SC ×2 (07:20→17:31)
[2024-07-01 07:23] LABS: Glucose - Point of Care 208 mg/dl (70-99)
--- NOTE | 2024-07-01 07:51 | W.PN.PUL3 ---
Addendum entered and electronically signed by Kwaku Escalante MD 07/01/24 18:19:
Given his volume overload, will also check a spot microalbumin/creatinine ratio to rule out nephrotic syndrome. Interestingly, his proBNP was only 343 on 06/28/2024, however adipocytes to metabolize BMP so this is not surprising. No evidence for
cirrhosis on CT abdomen/pelvis from 06/28/2024 although he does have fatty liver disease and he is at risk of developing AGOSTO if weight loss is not started.
Original Note:
Today's Communication / Plan
-
Spirometry performed today shows findings consistent with asthma � start Symbicort 160mcg with prn Lane
Overnight oximetry showed significant hypoxia reportedly done on 5 L/min --> he needs PAP with sleep. Will trial him tonight on BiPAP and would recommend using a nasal mask
If he is not willing to use PAP with sleep then uptitrate supplemental O2 flow rate to keep saturations >90%
Continue with diuresis as tolerated
Cardiology consulted and recs appreciated
Tobacco cessation efforts
Needs follow-up in the pulmonary-sleep clinic
Pulmonary service will continue to follow along while he remains hospitalized
Assessment
-
44-year-old male with [id number] history of smoking ongoing, 60 pound weight gain over the past year, hypertension, bipolar disorder/PTSD you presents with lower extremity swelling, fatigue. Blood work suggest CO2 retention/sleep disorder. We
are asked to comment on pulmonary process
Impression:
Excessive daytime sleepiness, fatigue -patient reports that this is from chronic nightmares with poor sleep/insomnia
60 pound weight gain x 1 year with lower extremity/abdominal/scrotal edema due to suspected acute HFpEF exacerbation
Chronic hypercapnic respiratory failure with compensatory metabolic alkalosis - due to obesity hypoventilation syndrome
Asthma (Dx today vis spirometry)
Insomnia with nightmares
Conditions present prior to admission
PTSD/bipolar disorder
Hypertension
Diabetes
Ongoing smoking, 40+ pack year
Smokes 2 packs a day
Plan/recommendations
At this time, patient appears to be comfortable
Unfortunately, it appears that his PTSD has limited his ability to follow through with sleep evaluation in the past
He started off by saying, 'I have PTSD' when asked about sleep apnea workup. But then proceeded to state he has had multiple tests in the past all negative. His last test was 5 years ago
Nocturnal oximetry severely abnormal
ABG consistent with chronic CO2 retention
Moving forward
I suggested that we will need to repeat his sleep study as an outpatient
Overnight oximetry study performed on 06/30 - 07/01/2024 reportedly on 5 L/min showed SpO2 <89% for 2 hours and 59 minutes with harriet SpO2 of 89%
Will trial BiPAP with sleep on 08/01 and titrate O2 flow rate to keep saturations >90%
- If patient is willing given his history of PTSD, would at least try nasal CPAP mask, and make patient aware that there are other options as an outpatient
If patient not willing to use PAP with sleep then continue with supplemental oxygen to keep saturations >90%
When closer to discharge, will consider nocturnal oximetry on 2 L to assure that he is sufficiently being oxygenated at nighttime; ultimately given his suspected AHMET, there may not be an optimal O2 flow rate as he mainly needs positive airway
pressure
Echo done today shows mildly enlarged RV with preserved RV systolic function and preserved PASP. LVEF 55 to 60% with normal diastolic function and no regional WMA seen. No significant valvular heart disease to account for clinical findings of ADHF
He would benefit from eventual follow-up in the sleep clinic
We also discussed importance of tobacco cessation
This will also be an ongoing discussion
Eventual outpatient sleep evaluation/PFT
Bedside spirometry performed today (07/21) showing resolution of of severe obstructive lung defect with significant bronchodilator response and marked improvement in the small lung air jang --> this is all consistent with asthma
- Regardless of spirometry findings today, this is still not accounting for his fluid overload
Obviously weight loss measures will be important to pursue as well - possibly GLP-1 agonist would be of benefit to him
Cardiology also following - recs appreciated
Disposition efforts
Pulmonary service will continue to follow along while he remains hospitalized.
Data:
TTE 07/01/2024:
Normal left ventricular size and systolic function with mild concentric left
ventricular hypertrophy
Left ventricular ejection fraction estimated by Morillo's method 55 to 60%
Normal diastolic function
Mildly enlarged right ventricle with overall preserved RV systolic function
Moderately dilated left atrium
Trace mitral and tricuspid regurgitation
Estimated pulmonary artery pressure of 27 mmHg, assuming a right atrial
pressure of 3 mmHg.
No prior study available for comparison
Total time spent today was 38 minutes for this encounter. Time includes reviewing laboratory test/imaging results, reviewing pertinent medical records, obtaining and reviewing medical history, performing an appropriate exam, ordering medications,
tests and procedures. Time also includes documentation of this encounter, coordinating patient care and communicating with other healthcare professionals. Total time does not include separately billed tests performed on this date of service.
Subjective Data
-
Date of Service:
Date of Service: July 01, 2024
Chief Complaint: Pulmonary Follow Up
Subjective:
Patient was seen and evaluated today at bedside. Currently on 5 L/min nasal cannula and breathing comfortably. He denies chest pain, REYES, Rayray pain, nausea, vomiting, fevers or chills. Spirometry performed today showed significant
bronchodilator response with resolution of severe obstructive lung defect consistent with asthma. Overnight oximetry was concerning for hypoxia with time SpO2 <89% for 2 hours and 59 minutes, reportedly done on 5 L/min O2.
Review of Systems
General: Other (Negative unless mentioned above)
Objective Data
Data Reviewed
Vital Signs / I&O / Oxygen:
Vital Signs
Temp Pulse Resp BP Pulse Ox
98.0 F 79 24 140/82 92
07/01/24 03:26 07/01/24 07:19 07/01/24 03:26 07/01/24 07:19 07/01/24 07:38
Intake and Output
11/11/1807/01/24 07/02/24
06:59 06:59 06:59
Intake Total 1420 / 1420
Output Total 300 / 300
Balance 1120 / 1120
SaO2 92
Nasal Cannula flow liters per 4
minute
Physical Exam
General: Respiratory Distress (negative), Comfortable, Chills (negative), Sweats (negative) and Other (Thick neck; morbidly obese)
HEENT: Normocephalic, Anicteric and Other (Injected conjunctiva)
Cardiovascular: S1-S2, Murmur (n) and Peripheral Edema (+1 LE edema bilaterally)
Respiratory: Wheeze (negative), Crackles (n), Rhonchi (negative) and Non-Labored Respirations
GI: Soft, Distended (Abdominal obesity + fluid retention), Non Tender and Normal Bowel Sounds
Neurology: AO x 3 and Tremors (negative)
Skin: Warm, Dry, Cyanosis (n), Jaundice (n) and Rash (Chronic venous stasis changes in bilateral lower extremities)
[2024-07-01 08:30] LABS: Hematocrit 55.5 % (39.0-52.0); Hemoglobin 17.2 g/dL (13.0-18.0); Mean Corpuscular Hgb 27.5 pg (27.0-31.0); Mean Corpuscular Volume 88.8 fL (80.0-94.0); Mean Platelet Volume 10.9 fL (7.4-10.4); Platelet Count 201 10^3/uL (130-400); Red Blood Cell Count 6.25 10^6/uL (4.70-6.10); Red Cell Dist. Width 14.6 % (11.5-14.5); White Blood Cell Count 9.4 10^3/uL (4.8-10.8)
--- NOTE | 2024-07-01 08:36 | W.PN.CARDCBS ---
Addendum entered and electronically signed by Wendy Patiño DO 07/01/24 10:29:
I saw and examined the patient.
The Errand Runner's note was reviewed and I agree with the note.
Comment: Patient seen and examined lying in bed. Reports improved shortness of breath but still having scrotal discomfort and complaining of abdominal distention.
General: No acute distress, AAOX3
Heart: Regular. Distant heart sounds. Positive S1-S2. No murmurs
Lungs: Bronchovesicular breath sounds with fine crackles at the bases but otherwise clear
Abd: Morbidly obese. Nontender. Positive bowel sounds
: Scrotal edema
Ext: ++ edema
Plan:
Markedly volume overloaded, heart failure with unknown EF
-proBNP not significantly elevated; troponin undetectable
-Continue IV diuresis
-2D echocardiogram today
-Heart failure education; heart failure diet consult
-Tobacco cessation strongly advised
-Suspect untreated sleep apnea; consider pulmonary consult to facilitate testing given concerns for right-sided heart failure
-Optimize goal-directed medical therapy as able
-Patient is already given excuses as to why he may not be able to follow dietary recommendations or quit smoking
-Continue close follow-up with his psychiatrist for bipolar/PTSD
Original Note:
Today's Communication / Plan
-
Continue diuresis
Echo today
CHF education
Impression / Plan
-
PCP:Regis Sharp
Street Cleaning Equipment Operator: none
Impression:
Acute on chronic heart failure, EF unknown, largely right-sided
Morbid obesity
Hypertension
Type 2 diabetes
Bipolar disorder
PTSD
Obstructive sleep apnea-patient denies, nocturnal pulse ox abnormal hypercapnia with hypercarbia
Current smoker-2 packs/day
Echo 07/01/2024: Study pending
Plan:
-Presented with SOB, edema, weight gain.
-Diuresing with IV lasix 40mg BID. Weight down another 5lbs overnight. Still w/ significant LE edema. Creat stable at 0.8.
-Echo pending 07/01. EF unknown.
-CHF education.
-Will adjust GDMT based on results of echo. Currently on valsartan 80mg daily, Nebivolol 10mg daily.
-K stable at 4.1. Mag 2.2
-Remains on 4L NC. Wean as able.
Progress Note - Street Cleaning Equipment Operator
Subjective
Date of Service: July 01, 2024
Still w/ significant LE edema. SOB improving.
Objective
Labs:
07/01/24 08:00
Labs
Hgb 17.2 g/dL (13.0-18.0) 07/01/24 08:00
Hct 55.5 % (39.0-52.0) H 07/01/24 08:00
Plt Count 201 10^3/uL (130-400) 07/01/24 08:00
Sodium 140 mmol/L (135-145) 06/30/24 05:50
Potassium 3.9 mmol/L (3.5-5.1) 06/30/24 05:50
BUN 13 mg/dl (9-20) 06/30/24 05:50
Creatinine 0.7 mg/dL (0.7-1.3) 06/30/24 05:50
Glucose 182 mg/dl (70-99) H 06/30/24 05:50
Troponins
06/28/24
20:26
Troponin I < 0.012
Vital Signs and I&O:
Vital Signs
Temp Pulse Resp BP Pulse Ox
98 F 97 18 140/82 92
07/01/24 07:55 07/01/24 07:55 07/01/24 07:55 07/01/24 07:55 07/01/24 07:38
Vital Signs
Temp Pulse Resp BP Pulse Ox
98 F 97 18 140/82 92
07/01/24 07:55 07/01/24 07:55 07/01/24 07:55 07/01/24 07:55 07/01/24 07:38
Intake & Output
06/29/24 06/30/24 07/01/24 07/02/24
07:59 06:59 06:59 06:59
Intake Total 1420 / 1420
Output Total 300 / 300
Balance 1120 / 1120
Physical Exam
Physical Exam
GEN: No distress, awake, alert, oriented x3
HEENT: supple, anicteric, mmm
LUNGS: Decreased breath sounds b/l
CV: Reg, S1/S2, no murmur
EXT: No clubbing or cyanosis. +3 edema b/l LE
NEURO: Gross non-focal
SKIN: Warm, dry, no rash
[2024-07-01 09:12] LABS: Blood Urea Nitrogen 15 mg/dl (9-20); Calcium 8.7 mg/dl (8.4-10.2); Carbon Dioxide 34 mmol/L (22-30); Chloride 97 mmol/L (98-107); Estimated Creatinine Clearance > 125 ml/min; Glucose 267 mg/dl (70-99); Magnesium 2.2 mg/dl (1.6-2.3); Phosphorus 3.1 mg/dl (2.5-4.5); Potassium 4.1 mmol/L (3.5-5.1); Sodium 142 mmol/L (135-145); eGFR > 60.00
--- NOTE | 2024-07-01 11:35 | CARDSERVLU ---
Echocardiogram with [facility]ason completed after protocol screening completed. Allergies verified.
Patent IV site: _R AC____
IV site flushed with 0.9% NaCl pre and post administration.
Diluted bolus method utilized to enhance visualization of ventricular cazares.
Total volume given: __3__ mL
Patient tolerated all procedures well without complications.
--- NOTE | 2024-07-01 12:07 | CM ---
Addendum entered by Shamar Delgado 07/01/24 14:07:
Pt seen bedside
Discussed PT rec. of , pt denies this stating he doesn't believe he will need this service
Currently on 4L O2. Per pt he does not use home O2
Plan: Home no needs
Original Note:
Cost check for farxiga- 10 mg.
Spoke w/ Ramona/[facility]. Per Ramona there is a $0 copay for medicine
TT ordering physician to update.
[2024-07-01 12:31] LABS: Glucose - Point of Care 150 mg/dl (70-99)
[2024-07-01] MEDS: NOVOLOG FLEXPEN-LOW RESISTANCE 1 UNITS SC (13:08)
--- NOTE | 2024-07-01 14:54 | W.PN.HOSP.TC ---
Today's Communication/Plan
-
echo
diuresis
surgery consulted for possible I&D
Assessment / Plan
Assessment / Plan
Physical Exam
General: no acute distress. Appears comfortable at this time. Morbidly Obese
HEENT: Thick neck. No noted JVD. On nasal cannula supplementation
Respiratory: Clear to auscultation. No wheezes crackles rhonchi
Cardiac: S1/S2 and Regular Rhythm; No Murmur
GI: Non Tender, Normal Bowel Sounds Induration / mild erythema / abdominal wall edema in the lower abdomen
Musculoskeletal: lower ext pitting edema +2 b/l
Neuro: AO x 3
A/P: Patient is a 44y M with PMH significant for PTSD and obesity who presents to ED complaining of progressive LE edema and fatigue x several months.
Anasarca
Hypoxemic Respiratory Insufficiency likely multifactorial d/t AHMET and Heart Failure possible underlying COPD
- Admit for further evaluation and treatment.
- Renal function appears normal on initial labs.
- suspect d/t Heart Failure unspecified type
- TSH wnl
- ECHO pending
-Cardiology eval appreciated cont IV diuresis
- Pulmonary eval appreciated nocturnal oxygenation study noted significant desaturation overnight, ABG in AM noted hypercarbia and hypoxia, likely AHMET
repeating nocturnal oximetry w/ 2L
bedside spirometry in AM
outpt follow up for sleep study
- I/Os, daily weights
Hypertension
- Adjust regimen as needed for adequate control.
- Hold amlodipine given significant edema.
-cont clonidine valsartan Lasix bystolic w/ holding parameters
DM-II
- Elevated glucose on initial labs.
- Discontinue pioglitazone which exacerbates volume overload.
- Hold other PO medications acutely.
- SSI coverage.
- A1C. appreciated 9.7
Bipolar Disorder
PTSD
- Continue current med regimen including Zonegran, clonidine
- Clonazepam changed to PRN.
- Follow for any changes in mood / new symptoms.
Morbid Obesity
- Weight gain of 60 lbs in the past year.
- Affects all aspects of care and evaluate for obesity related breathing issues as noted above.
- Encourage healthy diet and increased activity with goal of weight loss.
Boil right armpit area 1 inch diameter per nurse
- General Surgery Eval for bedside I&D
Tobacco Use
-nicotine supplementation
-smoking cessation counseled
PT/OT eval appreciated home with home services
DVT Prophylaxis: High dose Lovenox given BMI.
Code Status: Full
I spent a total of 53 minutes with the patient or on the floor. More than 50% of this time involved counseling and coordination of care.
Anticipated Discharge: > 48 hours
Subjective/Interval History
-
Date of Service: July 01, 2024
No acute events overnight, had episodes of desaturation to the 40s overnight.
Objective Data
-
Labs:
Laboratory Results
07/01/24
08:00
WBC 9.4
Hgb 17.2
Hct 55.5 H
Plt Count 201
Sodium 142
Potassium 4.1
Chloride 97 L
Carbon Dioxide 34 H
BUN 15
Creatinine 0.8
Glucose 267 H
Calcium 8.7
Vital Signs:
Vital Signs
Temp Pulse Resp BP Pulse Ox
98.0 F 74 20 126/73 95
07/01/24 11:06 07/01/24 11:06 07/01/24 11:06 07/01/24 11:06 07/01/24 08:00
I&O
06/30/24 07/01/24 07/02/24
06:59 06:59 06:59
Intake Total 1420 / 1420
Output Total 300 / 300
Balance 1120 / 1120
Review of Systems
-
History Source: Patient
All other systems: Not reviewed unless documented
Data Reviewed
-
CT Scan: Image personally visualized and interpreted and Report Reviewed by me
Labs: Labs Reviewed by me
[2024-07-01 16:55] LABS: Glucose - Point of Care 218 mg/dl (70-99)
--- NOTE | 2024-07-01 17:39 | CON.GS ---
Consultation
-
Date/Time Consultation Requested: 07/01/2024 4 PM
Date/Time Consultation Performed: 07/01/2024 4 PM
Requesting Provider: Hospitalist
Performing Provider: Dr. Ascencio
Reason for Consultation: Right axillary abscess
Medical History
-
Chief Complaint: Right axillary abscess
History of Present Illness:
This is a 44-year-old male with a history of super morbid obesity (BMI 56), PTSD, anasarca with hypoxemic respiratory insufficiency secondary to possible AHMET versus heart failure versus COPD who presents with an abscess in his right axilla. General
surgery consulted for drainage. The patient denies Fever, Chest Pain, Shortness Of Breath, Nausea, Vomiting, changes in urinary and bowel habits, unintentional weight loss.
Past Medical History
Past Medical History: Other (Heart failure, obesity, hypertension, diabetes, bipolar disorder, PTSD, smoker)
Past Surgical History: Reviewed & Noncontributory
Social History
Tobacco: Smoker
Alcohol: None
Drug: Marijuana
Personal: Single
Living: With Family
Family History
Family History: Reviewed & Not Pertinent
Allergies / Home Medications
Allergy/AdvReac Type Severity Reaction Status Date / Time
No Known Allergies Allergy Unverified 06/30/24 12:33
�Medication �Instructions �Recorded �Confirmed �Type
[id number] 333 mg-133 1 ea PO DAILY@1900 Supplement 06/24/16 06/28/24 History
mg-8.3 mg tablet
clonazepam 1 mg tablet 1 mg PO DAILY@1900 Mental 06/24/16 06/28/24 History
Health/Anxiety
clonidine HCl 0.3 mg tablet 0.3 mg PO DAILY@1900 Blood Pressure 06/24/16 06/28/24 History
amlodipine 10 mg tablet 10 mg PO DAILY@1900 Blood Pressure 06/28/24 06/28/24 History
atorvastatin 10 mg tablet 10 mg PO DAILY@1900 High 06/28/24 06/28/24 History
Cholesterol
ciprofloxacin HCl 500 mg tablet 500 mg PO DAILY@1900 Infection 06/28/24 06/28/24 History
(Cipro)
furosemide 20 mg tablet 20 mg PO DAILY@1900 Fluid 06/28/24 06/28/24 History
Retention/Swelling
gabapentin 100 mg capsule 100 mg PO DAILY@1900 Neurological 06/28/24 06/28/24 History
Condition
glimepiride 4 mg tablet 4 mg PO DAILY@1900 Diabetes 06/28/24 06/28/24 History
nebivolol 10 mg tablet 10 mg PO DAILY@1900 Blood Pressure 06/28/24 06/28/24 History
pioglitazone 30 mg tablet 30 mg PO DAILY@1900 Diabetes 06/28/24 History
sitagliptin phos 100 mg-metformin 1 tab PO DAILY@1900 Diabetes 06/28/24 06/28/24 History
ER 1,000 mg tablet,extend rel 24h
mp (Janumet XR)
valsartan 320 1 tab PO DAILY@1900 Blood Pressure 06/28/24 06/28/24 History
mg-hydrochlorothiazide 25 mg tablet
ziprasidone HCl 80 mg capsule 80 mg PO BID Mental Health/Anxiety 06/28/24 06/29/24 History
Review of Systems
-
All other systems: Negative unless noted
A 10 point review of systems was completed, and was negative except as per HPI.
Physical Exam
Vital Signs
Temp Pulse Resp BP Pulse Ox
98.4 F 75 22 128/67 99
07/01/24 15:10 07/01/24 15:10 07/01/24 15:10 07/01/24 15:42 07/01/24 15:10
06/30/24 07/01/24 07/02/24
06:59 06:59 06:59
Actual Weight 187.135 kg
Body Mass Index (BMI) 56.0
Lab Results
07/01/24 08:00
07/01/24 08:00
WBC 9.4 10^3/uL (4.8-10.8) 07/01/24 08:00
Hgb 17.2 g/dL (13.0-18.0) 07/01/24 08:00
Hct 55.5 % (39.0-52.0) H 07/01/24 08:00
Plt Count 201 10^3/uL (130-400) 07/01/24 08:00
Abs Immat Gran (auto) 0.1 10^3/uL (0-0.05) H 06/28/24 17:21
Neutrophils % 69.4 % (42.2-75.2) 06/28/24 17:21
Physical Exam
General: Respiratory Distress
HEENT: Normocephalic
Respiratory: Wheezes
GI: Soft and Obese
Skin: Other (Right axillary abscess)
Data Reviewed
-
Labs: Labs Reviewed by me
Total Time Spent with Patient (in minutes): 30
Assessment / Plan
-
This is a 44-year-old male with multiple medical comorbidities including obesity and diabetes who presents with a right axillary abscess.
Will perform a incision and drainage at bedside today.
Wound packed, wound care consulted will need to be changed daily. Change packing once daily until the wound is healed from the inside out.
Can continue with antibiotics x 24 hours
Patient to follow-up with me as an outpatient.
Risks/Benefits/Alternatives, expected postoperative course and possible complications (bleeding, infection) discussed at length. Patient wishes to proceed with the bedside procedure. All questions answered. Verbal consent obtained.
I spent 60 minutes in total for the care of this patient today including direct patient care and counseling, reviewing labs, imaging, coordination of care, as well as documentation.
--- NOTE | 2024-07-01 17:45 | W.PN.IRAD.PR ---
Procedure Note
-
Bedside incision and Drainage
A team time-out was performed confirming the location/laterality of the procedure, consent and allergies reviewed.
Location: Right axilla
Dimensions: 2 cm
Local: 1% Lidocaine
Risk Mgr: Gloria Draper NP
The skin was cleaned with alcohol and anesthetized with lidocaine. A cruciate incision was made over the lesion and dissection carried down through subcutaneous tissue. The abscess cavity was identified. The wound was irrigated with sterile saline.
Hemostasis was obtained. There was minimal blood loss. The skin was packed with a packing strip. A wound culture swab was obtained. The patient tolerated the procedure well, discharge instructions reviewed and all questions were answered.
[2024-07-01] MEDS: GEODON 80 MG PO (17:59)
[2024-07-01] MEDS: CATAPRES 0.3 MG PO (17:59)
[2024-07-01] MEDS: NEURONTIN 100 MG PO (17:59)
[2024-07-01] MEDS: LIPITOR 10 MG PO (18:00)
[2024-07-01] MEDS: SYMBICORT 160/4.5 MCG INHALER 2 PUFF INH (19:43)
[2024-07-01] MEDS: TYLENOL 650 MG PO (20:37)
[2024-07-01 21:10] LABS: Microalbumin, Random Urine 1.5 mg/dl (0.6-1.7); Microalbumin/creatinine Ratio 11.5 mg/g
[2024-07-02] VITALS (8 sets, daily range): BP systolic 102–155; BP diastolic 73–85; PULSE 2–73; BMI 55.4
[2024-07-02] MEDS: KLONOPIN 0.5 MG PO ×2 (05:58→18:16)
[2024-07-02] MEDS: SYMBICORT 160/4.5 MCG INHALER 2 PUFF INH ×2 (07:29→20:23)
[2024-07-02 07:34] LABS: Glucose - Point of Care 190 mg/dl (70-99)
[2024-07-02 07:51] LABS: Hematocrit 49.1 % (39.0-52.0); Hemoglobin 15.9 g/dL (13.0-18.0); Mean Corp Hgb Conc. 32.4 g/dL (33.0-37.0); Mean Corpuscular Hgb 27.4 pg (27.0-31.0); Mean Corpuscular Volume 84.7 fL (80.0-94.0); Mean Platelet Volume 10.6 fL (7.4-10.4); Platelet Count 182 10^3/uL (130-400); Red Cell Dist. Width 14.4 % (11.5-14.5); White Blood Cell Count 7.5 10^3/uL (4.8-10.8)
[2024-07-02 08:01] LABS: Venous Blood Gas B.E. 9.9 mmol/L (-4 to +4); Venous Blood Gas HCO3 37.4 mmol/L (22-27); Venous Blood Gas O2 Sat % 99.3 %; Venous Blood Gas pCO2 59 mmHg (35-48); Venous Blood Gas pH 7.41 (7.32-7.43); Venous Blood Gas pO2 164 mmHg (30-50)
[2024-07-02 08:39] LABS: Blood Urea Nitrogen 15 mg/dl (9-20); Calcium 8.5 mg/dl (8.4-10.2); Carbon Dioxide 36 mmol/L (22-30); Chloride 99 mmol/L (98-107); Estimated Creatinine Clearance > 125 ml/min; Glucose 181 mg/dl (70-99); Magnesium 2.3 mg/dl (1.6-2.3); Phosphorus 2.7 mg/dl (2.5-4.5); Potassium 3.6 mmol/L (3.5-5.1); Sodium 141 mmol/L (135-145); eGFR > 60.00
[2024-07-02] MEDS: NOVOLOG FLEXPEN-LOW RESISTANCE 1 UNITS SC ×3 (09:17→18:19)
[2024-07-02] MEDS: NICODERM TRANSDERMAL 21 MG TRANSDERM (09:18)
[2024-07-02] MEDS: DIOVAN 80 MG PO (09:19)
[2024-07-02] MEDS: BYSTOLIC 10 MG PO (09:19)
[2024-07-02] MEDS: FARXIGA 10 MG PO (09:19)
[2024-07-02] MEDS: DESENEX/MITRAZOL/ZEASORB 1 APPLIC TOPICAL ×2 (09:20→20:53)
[2024-07-02] MEDS: LASIX 40 MG IV ×2 (09:21→16:28)
[2024-07-02] MEDS: LOVENOX 40 MG SC ×2 (09:21→20:19)
[2024-07-02] MEDS: FLUSH (NSS) 1 FLUSH IV ×2 (09:22→16:28)
[2024-07-02] MEDS: AUGMENTIN 875 MG/125 MG 1 TABLET PO ×2 (09:26→20:20)
--- NOTE | 2024-07-02 09:38 | W.PN.PUL3 ---
Today's Communication / Plan
-
Spirometry performed on 07/01 shows findings consistent with asthma � continue Symbicort 160mcg with prn Duonebs
Continue with BiPAP 12/5cmH2O with sleep
Check NOX studies
On BiPAP 12/5 cmH2O on room air, only adding oxygen if SpO2 was 88% or less for >10 minutes
Trend sHCO3 level - may need diamox if level >40
Continue with diuresis as tolerated
Cardiology consulted and recs appreciated
Tobacco cessation efforts
Needs follow-up in the pulmonary-sleep clinic
Pulmonary service will continue to follow along while he remains hospitalized
Assessment
-
44-year-old male with [id number] history of smoking ongoing, 60 pound weight gain over the past year, hypertension, bipolar disorder/PTSD you presents with lower extremity swelling, fatigue. Blood work suggest CO2 retention/sleep disorder. We
are asked to comment on pulmonary process
Impression:
Excessive daytime sleepiness, fatigue -patient reports that this is from chronic nightmares with poor sleep/insomnia
60 pound weight gain x 1 year with lower extremity/abdominal/scrotal edema due to suspected acute HFpEF exacerbation
Chronic hypercapnic respiratory failure with compensatory metabolic alkalosis - due to obesity hypoventilation syndrome and now with worsening serum bicarbonate level in the setting of diuresis
Asthma (Dx via spirometry on 07/01/2024)
Insomnia with Hx of nightmares/night terrors
Conditions present prior to admission
PTSD/bipolar disorder
Hypertension
Diabetes
Ongoing smoking, 40+ pack year
Smokes 2 packs a day
Plan/recommendations
At this time, patient appears to be comfortable
Unfortunately, it appears that his PTSD has limited his ability to follow through with sleep evaluation in the past
He started off by saying, 'I have PTSD' when asked about sleep apnea workup. But then proceeded to state he has had multiple tests in the past all negative. His last test was 5 years ago
Nocturnal oximetry severely abnormal
ABG consistent with chronic CO2 retention
Moving forward
I suggested that we will need to repeat his sleep study as an outpatient
Overnight oximetry study performed on 06/30 - 07/01/2024 reportedly on 5 L/min showed SpO2 <89% for 2 hours and 59 minutes with harriet SpO2 of 89%
Started BiPAP on evening of 07/01 and he did well with this --> continue BiPAP with sleep on 12/5cmH2O and titrate O2 flow rate to keep saturations >90%
- Check NOX study tonight on BiPAP on 21% (no O2) to see if pressures need to be adjusted; if SpO2 <88% for >10 mins then ok to bleed in O2 at that point
- Can try a nasal PAP mask if patient not tolerating full facemask
- Blood gas checked again this morning showing stable chronic hypercapnia with pH 7.41, pCO2 59
Echo done on 07/01/2024 showed mildly enlarged RV with preserved RV systolic function and preserved PASP. LVEF 55 to 60% with normal diastolic function and no regional WMA seen. No significant valvular heart disease to account for clinical findings
of ADHF
Unfortunately the echo may not truly be reflecting his pulmonary pressures, although he is continuing to clinically improve; if more accurate assessment of his heart failure status is needed then would recommend a right heart catheterization
Continue IV lasix and maintain net negative fluid balance as tolerated
Cardiology also following - recs appreciated
We also discussed importance of tobacco cessation
This will also be an ongoing discussion
Eventual outpatient sleep evaluation/PFT
Bedside spirometry performed on 07/01/2024, showing resolution of of severe obstructive lung defect with significant bronchodilator response and marked improvement in the small lung air jang --> this is all consistent with asthma
- Continue Symbicort 160mcg
- Regardless of spirometry findings, this is still not accounting for his fluid overload
He has a boil in the right axilla region and underwent I&D today by general surgery; currently on Augmentin; defer Abx to primary team
Obviously weight loss measures will be important to pursue as well - possibly GLP-1 agonist would be of benefit to him
He would benefit from eventual follow-up in the sleep clinic
Disposition efforts
Pulmonary service will continue to follow along while he remains hospitalized.
Data:
TTE 07/01/2024:
Normal left ventricular size and systolic function with mild concentric left
ventricular hypertrophy
Left ventricular ejection fraction estimated by Morillo's method 55 to 60%
Normal diastolic function
Mildly enlarged right ventricle with overall preserved RV systolic function
Moderately dilated left atrium
Trace mitral and tricuspid regurgitation
Estimated pulmonary artery pressure of 27 mmHg, assuming a right atrial
pressure of 3 mmHg.
No prior study available for comparison
Total time spent today was 39 minutes for this encounter. Time includes reviewing laboratory test/imaging results, reviewing pertinent medical records, obtaining and reviewing medical history, performing an appropriate exam, ordering medications,
tests and procedures. Time also includes documentation of this encounter, coordinating patient care and communicating with other healthcare professionals. Total time does not include separately billed tests performed on this date of service.
Subjective Data
-
Date of Service:
Date of Service: July 02, 2024
Chief Complaint: Pulmonary Follow Up
Subjective:
Patient was seen and evaluated today at bedside. He wore his BiPAP overnight on 12/5cmH2O bled with 5 L/min. He says he slept better last night as he did not have any disturbing nightmares and slept much better than he does at home. He is
currently on 6 L/min via nasal cannula and breathing comfortably. He says that he is starting to feel better with less swelling in his groin/testicles. Currently denies chest pain, REYES, abdominal pain, nausea, fevers or chills.
Review of Systems
General: Other (Negative unless mentioned above)
Objective Data
Data Reviewed
Vital Signs / I&O / Oxygen:
Vital Signs
Temp Pulse Resp BP Pulse Ox
98.8 F 74 20 140/75 92
07/02/24 07:30 07/02/24 09:21 07/02/24 07:34 07/02/24 09:21 07/02/24 09:11
Intake and Output
07/01/24 07/02/24 07/03/24
06:59 06:59 06:59
Intake Total 1420 / 1420 1080 / 1080
Output Total 300 / 300
Balance 1120 / 1120 1080 / 1080
SaO2 92
Nasal Cannula flow liters per 5
minute
Physical Exam
General: Respiratory Distress (negative), Comfortable, Chills (negative), Sweats (negative) and Other (Thick neck; morbidly obese)
HEENT: Normocephalic, Anicteric and Other (Injected conjunctiva)
Cardiovascular: S1-S2, Murmur (n) and Peripheral Edema (+1 LE edema bilaterally)
Respiratory: Clear, Wheeze (negative), Crackles (n), Rhonchi (negative) and Non-Labored Respirations
GI: Soft, Distended (Abdominal obesity + fluid retention), Non Tender and Normal Bowel Sounds
Neurology: AO x 3 and Tremors (negative)
Skin: Warm, Dry, Cyanosis (n), Jaundice (n) and Rash (Chronic venous stasis changes in bilateral lower extremities)
Labs/Micro/Reports
Lab Data
07/02/24 07:31
07/02/24 07:31
Microbiology
07/01/24 17:27 Abscess Gram Stain - Preliminary
--- NOTE | 2024-07-02 10:47 | W.PN.HOSP.TC ---
Today's Communication/Plan
-
BiPAP at night
Symbicort, nebs
Diuresis
wean o2 as tolerated
Abx x 24 hours
Assessment / Plan
Assessment / Plan
Physical Exam
General: no acute distress. Appears comfortable at this time. Morbidly Obese
HEENT: Thick neck. No noted JVD. On nasal cannula supplementation
Respiratory: Clear to auscultation. No wheezes crackles rhonchi
Cardiac: S1/S2 and Regular Rhythm; No Murmur
GI: Non Tender, Normal Bowel Sounds Induration / mild erythema / abdominal wall edema in the lower abdomen
Musculoskeletal: lower ext pitting edema +2 b/l
Neuro: AO x 3
A/P: Patient is a 44y M with PMH significant for PTSD and obesity who presents to ED complaining of progressive LE edema and fatigue x several months.
Anasarca
Acute Hypoxic and Hypercapnic Respiratory Failure likely multifactorial d/t AHMET and Heart Failure, Asthma
- Renal function appears normal on initial labs.
- suspect d/t Heart Failure unspecified type
- TSH wnl
- ECHO EF 55 to 60%; mild concentric left and reticular hypertrophy, normal diastolic function ventricular hypertrophy; normal diastolic function; mildly enlarged right ventricle with overall preserved RV systolic function, moderately dilated to
left atrium
-Cardiology eval appreciated cont IV diuresis
- Pulmonary eval appreciated nocturnal oxygenation study noted significant desaturation overnight, ABG in AM noted hypercarbia and hypoxia, likely AHMET
-wean o2 as tolerated
-bedside spirometry indicative of Asthma- start Symbicort and prn nebs
outpt follow up for sleep study
- I/Os, daily weights
Hypertension
- Adjust regimen as needed for adequate control.
- Hold amlodipine given significant edema.
-cont clonidine valsartan Lasix bystolic w/ holding parameters
DM-II
- Elevated glucose on initial labs.
- Discontinue pioglitazone which exacerbates volume overload.
- Hold other PO medications acutely.
- SSI coverage.
- A1C. appreciated 9.7
Bipolar Disorder
PTSD
- Continue current med regimen including Zonegran, clonidine
- Clonazepam changed to PRN.
- Follow for any changes in mood / new symptoms.
Morbid Obesity
- Weight gain of 60 lbs in the past year.
- Affects all aspects of care and evaluate for obesity related breathing issues as noted above.
- Encourage healthy diet and increased activity with goal of weight loss.
Boil right armpit area 1 inch diameter per nurse
- General Surgery Eval for bedside I&D
-s/p bedside I&D 07/02
-Cont abx x 24 hours
#Suspected AHMET
-trial BiPAP
-pulm following - will need outpatient
- follow-up in the pulmonary-sleep clinic
#Asthma
-start symbicort
-duonebs
Tobacco Use
-nicotine supplementation
-smoking cessation counseled
PT/OT eval appreciated home with home services
DVT Prophylaxis: High dose Lovenox given BMI.
Code Status: Full
I spent a total of 51 minutes with the patient or on the floor. More than 50% of this time involved counseling and coordination of care.
Anticipated Discharge: > 48 hours
Subjective/Interval History
-
Date of Service: July 02, 2024
Incision and drainage yesterday; continue IV diuresis
Objective Data
-
Labs:
Laboratory Results
07/02/24
07:31
WBC 7.5
Hgb 15.9
Hct 49.1
Plt Count 182
Sodium 141
Potassium 3.6
Chloride 99
Carbon Dioxide 36 H
BUN 15
Creatinine 0.7
Glucose 181 H
Calcium 8.5
Vital Signs:
Vital Signs
Temp Pulse Resp BP Pulse Ox
98.8 F 74 20 140/75 92
07/02/24 07:30 07/02/24 09:21 07/02/24 07:34 07/02/24 09:21 07/02/24 09:11
I&O
07/01/24 07/02/24 07/03/24
06:59 06:59 06:59
Intake Total 1420 / 1420 1080 / 1080
Output Total 300 / 300
Balance 1120 / 1120 1080 / 1080
Review of Systems
-
History Source: Patient
All other systems: Not reviewed unless documented
Data Reviewed
-
CT Scan: Image personally visualized and interpreted and Report Reviewed by me
Labs: Labs Reviewed by me
--- NOTE | 2024-07-02 11:40 | W.PN.CARDCBS ---
Addendum entered and electronically signed by Tk Cano MD 07/02/24 14:27:
I saw and examined the patient.
The Elastic Yarn Twister Helper's note was reviewed and I agree with the note.
Comment: Briefly, 44-year-old man presenting with significant peripheral edema concerning for heart failure with preserved ejection fraction
With IV diuresis his weight is down considerably
Will trial higher dose of Lasix, 80 mg IV twice daily
New to [facility] this admission
Add spironolactone
Monitor electrolytes and renal function closely
Wean oxygen as able, on 5L supplemental O2 at the time of my evaluation although he does not report any significant dyspnea
Original Note:
Today's Communication / Plan
-
continue IV lasix, consider increasing dosage
wean supp O2 as able
consider diabetic LEAD SYSTEMS ANALYST consult
Impression / Plan
-
PCP:Regis Sharp
Cuff Runner: none
Impression:
Acute on chronic HFpEF, largely right-sided
Morbid obesity
Hypertension
Type 2 diabetes
Bipolar disorder
PTSD
Obstructive sleep apnea-patient denies, nocturnal pulse ox abnormal hypercapnia with hypercarbia
Asthma
Current smoker-2 packs/day
R armstuartt boil s/p bedside I&D 07/02/24
Echo 07/01/2024: EF 55 to 60%, mild concentric LVH, enlarged RV, moderately dilated left atrium, trace mitral and tricuspid regurgitation, PAP 27 mmHg
Plan:
-Presented with significant edema and weight gain.
-diuresing with IV lasix 40mg BID, consider increasing dose. weight down 35 pounds from admission if accurate. Cr stable. prior to admission was on po lasix 20mg daily as well as HCTZ as part of valsartan/HCTZ combo pill. dry weight unknown.
-echo with results as above, EF preserved. discussed results with patient 07/02
-CHF education.
-Remains on 4-5L NC. Wean as able. reports he feels he is able to get significantly better sleep with supp O2. eval for home O2 prior to DC. he had nocturnal pulse ox here with significant desaturations overnight and ABG noted hypercarbia suggestive
of AHMET, however reports he has had multiple sleep studies as OP which have all been negative for sleep apnea.
-continue on valsartan 80mg daily, Nebivolol 10mg daily, clonidine 0.3mg HS. OP amlodipine stopped given significant edema. joana added this admission
-in SR upon review of tele overnight.
-TSH WNL
-blood sugars suboptimally controlled, needs improved control. hgbA1c 8.7%. OP actos discontinued. consider diabetic LEAD SYSTEMS ANALYST consultation.
-trop negative on admission x1. no CP
-discussed smoking cessation
Progress Note - Cuff Runner
Subjective
Date of Service: July 02, 2024
reports good urine output. reports improvement in swelling. no CP, SOB
Objective
Labs:
07/02/24 07:31
07/02/24 07:31
Labs
Hgb 15.9 g/dL (13.0-18.0) 07/02/24 07:31
Hct 49.1 % (39.0-52.0) 07/02/24 07:31
Plt Count 182 10^3/uL (130-400) 07/02/24 07:31
Sodium 141 mmol/L (135-145) 07/02/24 07:31
Potassium 3.6 mmol/L (3.5-5.1) 07/02/24 07:31
BUN 15 mg/dl (9-20) 07/02/24 07:31
Creatinine 0.7 mg/dL (0.7-1.3) 07/02/24 07:31
Glucose 181 mg/dl (70-99) H 07/02/24 07:31
Vital Signs and I&O:
Vital Signs
Temp Pulse Resp BP Pulse Ox
98.5 F 76 20 138/83 97
07/02/24 11:05 07/02/24 11:05 07/02/24 11:05 07/02/24 11:05 07/02/24 11:05
Vital Signs
Temp Pulse Resp BP Pulse Ox
98.5 F 76 20 138/83 97
07/02/24 11:05 07/02/24 11:05 07/02/24 11:05 07/02/24 11:05 07/02/24 11:05
Intake & Output
06/30/24 07/01/24 07/02/24 07/03/24
07:59 07:59 07:59 07:59
Intake Total 1420 / 1420 1080 / 1080
Output Total 300 / 300
Balance 1120 / 1120 1080 / 1080
Physical Exam
Physical Exam
GEN: No distress, awake, alert, oriented x3. on supp O2. morbidly obese
HEENT: supple, anicteric, mmm, eomi
LUNGS: decreased BS B/L, no wheezes/rales
CV: Reg, S1/S2, no murmur
ABD: soft, BS+, NT/ND
EXT: No cyanosis, clubbing. 4+ edema of B/L LE
NEURO: Gross non-focal
SKIN: Warm, pink, dry. No rash
[2024-07-02 11:55] LABS: Glucose - Point of Care 174 mg/dl (70-99)
[2024-07-02 16:19] LABS: Glucose - Point of Care 163 mg/dl (70-99)
--- NOTE | 2024-07-02 16:26 | PTCARENOTE ---
Pt AAO x3, WATKINS well, OOB in room/to BR; erick well. No c/o weakness/dizziness. VSS. Telemetry:NSR. On nc 3 lpm-pulse ox 94%, pt with (+) slight TORRES, denies SOB. Abd obese, soft, erick PO well. Voiding mod amts clear yellow urine. Rt axilla dsg
D/I. Resting in bed at present, no c/o. Will continue to monitor.
[2024-07-02] MEDS: ALDACTONE 25 MG PO (16:28)
[2024-07-02] MEDS: TYLENOL 650 MG PO ×2 (18:16→22:36)
[2024-07-02] MEDS: CATAPRES 0.3 MG PO (18:17)
[2024-07-02] MEDS: GEODON 80 MG PO (18:17)
[2024-07-02] MEDS: NEURONTIN 100 MG PO (18:17)
[2024-07-02] MEDS: LIPITOR 10 MG PO (18:18)
[2024-07-02 21:13] LABS: Glucose - Point of Care 190 mg/dl (70-99)
[2024-07-03] VITALS (7 sets, daily range): BP systolic 118–144; BP diastolic 57–90; PULSE 2–75; BMI 54.6
[2024-07-03 07:27] LABS: Glucose - Point of Care 159 mg/dl (70-99)
[2024-07-03 07:34] LABS: Hematocrit 51.6 % (39.0-52.0); Hemoglobin 16.5 g/dL (13.0-18.0); Mean Corpuscular Volume 84.3 fL (80.0-94.0); Mean Platelet Volume 10.6 fL (7.4-10.4); Platelet Count 200 10^3/uL (130-400); Red Blood Cell Count 6.12 10^6/uL (4.70-6.10); Red Cell Dist. Width 14.4 % (11.5-14.5); White Blood Cell Count 6.9 10^3/uL (4.8-10.8)
[2024-07-03 08:06] LABS: Blood Urea Nitrogen 18 mg/dl (9-20); Calcium 8.7 mg/dl (8.4-10.2); Carbon Dioxide 36 mmol/L (22-30); Chloride 100 mmol/L (98-107); Estimated Creatinine Clearance > 125 ml/min; Glucose 172 mg/dl (70-99); Magnesium 2.3 mg/dl (1.6-2.3); Phosphorus 3.1 mg/dl (2.5-4.5); Potassium 3.9 mmol/L (3.5-5.1); Sodium 143 mmol/L (135-145); eGFR > 60.00
[2024-07-03] MEDS: SYMBICORT 160/4.5 MCG INHALER 2 PUFF INH ×2 (08:06→19:40)
--- NOTE | 2024-07-03 09:27 | W.PN.PUL3 ---
Today's Communication / Plan
-
Spirometry performed on 07/01 shows findings suspicious for asthma � continue Symbicort 160mcg with prn Miltononebs
Continue with BiPAP 12/5cmH2O with sleep --> will need to raise pressures if O2 flow rate cannot be lowered
Trend sHCO3 level - may need diamox if level >40
Continue with diuresis as tolerated
Check scrotal US
Cardiology consulted and recs appreciated
Tobacco cessation efforts/nicotine patch
Needs follow-up in the pulmonary-sleep clinic
Pulmonary service will continue to follow along while he remains hospitalized
Assessment
-
44-year-old male with [id number] history of smoking ongoing, 60 pound weight gain over the past year, hypertension, bipolar disorder/PTSD you presents with lower extremity swelling, fatigue. Blood work suggest CO2 retention/sleep disorder. We
are asked to comment on pulmonary process
Impression:
Excessive daytime sleepiness, fatigue -patient reports that this is from chronic nightmares with poor sleep/insomnia
60 pound weight gain x 1 year with lower extremity/abdominal/scrotal edema due to suspected acute HFpEF exacerbation
Chronic hypercapnic respiratory failure with compensatory metabolic alkalosis - due to obesity hypoventilation syndrome and now with worsening serum bicarbonate level in the setting of diuresis
Suspected asthma (via spirometry on 07/01/2024)
Insomnia with Hx of nightmares/night terrors
Conditions present prior to admission
PTSD/bipolar disorder
Hypertension
Diabetes
Ongoing smoking, 40+ pack year
Smokes 2 packs a day
Plan/recommendations
At this time, patient appears to be comfortable
Previously it appeared that his PTSD has limited his ability to follow through with sleep evaluation in the past
He has been using the BiPAP for the last several days and tolerating it --> continue this while hospitalized with sleep and he will need to be discharged home with this as well
He has had multiple sleep studies in the past per the patient's report, and they have been reportedly negative
Nocturnal oximetry severely abnormal
ABG consistent with chronic CO2 retention
Moving forward
I suggested that we will need to repeat his sleep study as an outpatient
Overnight oximetry study performed on 06/30 - 07/01/2024 reportedly on 5 L/min showed SpO2 <89% for 2 hours and 59 minutes with harriet SpO2 of 89%
Started BiPAP on evening of 07/01 and he did well with this --> continue BiPAP with sleep on 12/5cmH2O and titrate O2 flow rate to keep saturations >90%
- NOX study performed on the evening of 07/02 - 07/03/2024 showed SpO2 <89% for 2 hours and 52 minutes on BiPAP at 21% FiO2. Once O2 was applied he is SpO2 improved dramatically
- Can try a nasal PAP mask if patient not tolerating full facemask
- Blood gas checked again on AM of 07/02/2024 showed stable chronic hypercapnia with pH 7.41, pCO2 59 --> no need to continue checking blood gases
Echo done on 07/01/2024 showed mildly enlarged RV with preserved RV systolic function and preserved PASP. LVEF 55 to 60% with normal diastolic function and no regional WMA seen. No significant valvular heart disease to account for clinical findings
of ADHF
Unfortunately the echo may not truly be reflecting his pulmonary pressures, although he is continuing to clinically improve; if more accurate assessment of his heart failure status is needed then would recommend a right heart catheterization
Continue IV lasix and maintain net negative fluid balance as tolerated
Cardiology also following - recs appreciated
Check scrotal US as he feels like his testicles feel funny, like 'jelly'
We also discussed importance of tobacco cessation
This will also be an ongoing discussion
Eventual outpatient sleep evaluation/PFT
Bedside spirometry performed on 07/01/2024, showing a significant bronchodilator response with marked improvement in the small lung jang, suspicious for reactive airway disease versus asthma.
- Continue Symbicort 160mcg -I did educate the patient saying that it may take 2-4 weeks for him to start feeling a benefit and he is okay with this plan; if no difference felt after 1 month then okay to stop
- Regardless of spirometry findings, this is still not accounting for his fluid overload
He has a boil in the right axilla region and underwent I&D today by general surgery; currently on Augmentin; defer Abx to primary team
Obviously weight loss measures will be important to pursue as well - possibly GLP-1 agonist would be of benefit to him
He would benefit from eventual follow-up in the sleep clinic
Continue nicotine patch --> he wants me to lower the dose in an attempt to wean him. I changed this today
Disposition efforts
Pulmonary service will continue to follow along while he remains hospitalized. He ultimately needs to get his supplemental O2 flow rate going through his BiPAP down to a dose that can be accommodated as an outpatient before he can be discharged.
Ideally a BiPAP titration study would be needed as he may just need higher pressures. If unable to bring down dose tonight then I will adjust his pressures tomorrow night to see if this helps lower the O2 dose we are delivering.
Data:
TTE 07/01/2024:
Normal left ventricular size and systolic function with mild concentric left
ventricular hypertrophy
Left ventricular ejection fraction estimated by Morillo's method 55 to 60%
Normal diastolic function
Mildly enlarged right ventricle with overall preserved RV systolic function
Moderately dilated left atrium
Trace mitral and tricuspid regurgitation
Estimated pulmonary artery pressure of 27 mmHg, assuming a right atrial
pressure of 3 mmHg.
No prior study available for comparison
Total time spent today was 37 minutes for this encounter. Time includes reviewing laboratory test/imaging results, reviewing pertinent medical records, obtaining and reviewing medical history, performing an appropriate exam, ordering medications,
tests and procedures. Time also includes documentation of this encounter, coordinating patient care and communicating with other healthcare professionals. Total time does not include separately billed tests performed on this date of service.
Subjective Data
-
Date of Service:
Date of Service: July 03, 2024
Chief Complaint: Pulmonary Follow Up
Subjective:
Patient was seen and evaluated this morning. Wore BiPAP overnight on 12/5cmH2O, bled with no oxygen. NOX study performed and he was ultimately placed onto 10Lmin through BiPAP at around 3:26am. Harriet SpO2 was 76% with time of SpO2 <89% for 2
hours and 52 minutes. SpO2 improved once the O2 was applied and the middle of the night.
This morning he feels much better, and looks more refreshed. He is currently on 3 L/min nasal cannula and says he had no issues overnight, and no nightmares. His swelling is okay and has reduced however he feels like his testicles feel like a
'jelly' consistency. She denies chest pain, REYES, abdominal pain, nausea, fevers or chills.
Review of Systems
General: Other (Negative unless mentioned above)
Objective Data
Data Reviewed
Vital Signs / I&O / Oxygen:
Vital Signs
Temp Pulse Resp BP Pulse Ox
97.7 F 76 18 144/90 95
07/03/24 07:40 07/03/24 08:08 07/03/24 08:08 07/03/24 07:40 07/03/24 08:08
Intake and Output
07/02/24 07/03/24 07/04/24
06:59 06:59 06:59
Intake Total 1080 / 1080 1380 / 1380
Output Total 3820 / 3820
Balance 1080 / 1080 -2440 / -2440
SaO2 95
Nasal Cannula flow liters per 3
minute
Physical Exam
General: Respiratory Distress (negative), Comfortable, Chills (negative), Sweats (negative) and Other (Thick neck; morbidly obese)
HEENT: Normocephalic, Anicteric and Other (Injected conjunctiva)
Cardiovascular: S1-S2, Murmur (n) and Peripheral Edema (+1 LE edema bilaterally)
Respiratory: Clear, Wheeze (negative), Crackles (n), Rhonchi (negative) and Non-Labored Respirations
GI: Soft, Distended (Abdominal obesity + fluid retention), Non Tender and Normal Bowel Sounds
Neurology: AO x 3 and Tremors (negative)
Skin: Warm, Dry, Cyanosis (n), Jaundice (n), Rash (Chronic venous stasis changes in bilateral lower extremities) and Other (Excoriations seen on bilateral lower extremities with venous stasis dermatitis changes)
Labs/Micro/Reports
Lab Data
07/03/24 07:16
07/03/24 07:16
Microbiology
07/01/24 17:27 Abscess Anaerobic Culture - Preliminary
Culture pending. Anaerobic cultures are examined after 3
days incubation. Additional information to follow.
07/01/24 17:27 Abscess Wound Culture - Preliminary
No growth
07/01/24 17:27 Abscess Gram Stain - Preliminary
[2024-07-03] MEDS: NOVOLOG FLEXPEN-LOW RESISTANCE 1 UNITS SC ×2 (10:00→13:14)
[2024-07-03] MEDS: NICODERM TRANSDERMAL 21 MG TRANSDERM (10:01)
[2024-07-03] MEDS: LOVENOX 40 MG SC ×2 (10:01→21:02)
[2024-07-03] MEDS: LASIX 40 MG IV ×2 (10:02→18:11)
[2024-07-03] MEDS: FARXIGA 10 MG PO (10:03)
[2024-07-03] MEDS: BYSTOLIC 10 MG PO (10:04)
[2024-07-03] MEDS: ALDACTONE 25 MG PO (10:06)
[2024-07-03] MEDS: DIOVAN 80 MG PO (10:06)
[2024-07-03] MEDS: AUGMENTIN 875 MG/125 MG 1 TABLET PO ×2 (10:06→21:00)
[2024-07-03] MEDS: DESENEX/MITRAZOL/ZEASORB 1 APPLIC TOPICAL ×2 (10:07→21:03)
--- NOTE | 2024-07-03 11:02 | W.PN.CARDCBS ---
Addendum entered and electronically signed by Chela Pryor MD 07/03/24 13:40:
I saw and examined the patient.
The Bell Person's note was reviewed and I agree with the note.
Comment: Still with volume overload. Morbid obesity. +2 lower extremity edema with chronic changes. He is here with heart failure with preserved ejection fraction. He continues to diurese and weight is down about 40+ pounds. We discussed this
at length.
-Continue SGLT2 inhibitor.
-Continue IV diuretic. Labs stable. Follow.
-Heart failure teaching reinforced.
-Continue treatment of sleep apnea.
-Will need close outpatient follow-up.
Original Note:
Today's Communication / Plan
-
continue IV lasix
tubigrips
consider increasing valsartan dose for improved BP control
consider diabetic TUNNEL ELASTIC OPERATOR CHAINSTITCH consultation.
Impression / Plan
-
PCP:Regis Sharp
Set Making Machine Operator: none
Impression:
Acute on chronic HFpEF, largely right-sided
Morbid obesity
Hypertension
Type 2 diabetes
Bipolar disorder
PTSD
Obstructive sleep apnea-patient denies, nocturnal pulse ox abnormal hypercapnia with hypercarbia
Asthma
Current smoker-2 packs/day
R armstuartt boil s/p bedside I&D 07/02/24
Echo 07/01/2024: EF 55 to 60%, mild concentric LVH, enlarged RV, moderately dilated left atrium, trace mitral and tricuspid regurgitation, PAP 27 mmHg
Plan:
-I&O remains grossly negative overnight. If accurate weight down another 6 pounds. Has now lost over 40 pounds from admission. Creatinine remained stable. Continue IV Lasix 40mg BID. prior to admission was on po lasix 20mg daily as well as HCTZ
as part of valsartan/HCTZ combo pill. dry weight unknown.
-echo with results as above, EF preserved.
-CHF education.
-add tubigrip stockings
-currently on 3L NC. continue to wean as able. eval for home O2 prior to DC. he had nocturnal pulse ox here with significant desaturations overnight and ABG noted hypercarbia suggestive of AHMET, however reports he has had multiple sleep studies as OP
which have all been negative for sleep apnea. also noted to have nocturnal bradycardia on review of tele
-BPs overall remain elevated on valsartan 80mg daily, Nebivolol 10mg daily, clonidine 0.3mg HS. OP amlodipine stopped given significant edema. consider increasing valsartan dose to 160mg daily
-farxiga added this admission for CHF and diabetes. OP actos discontinued. blood sugars suboptimally controlled, needs improved control. hgbA1c 8.7%. consider diabetic TUNNEL ELASTIC OPERATOR CHAINSTITCH consultation.
-in SR/SB upon review of tele overnight.
-trop negative x1
-smoking cessation
Progress Note - Set Making Machine Operator
Subjective
Date of Service: July 03, 2024
reports remains with LE edema
Objective
Labs:
07/03/24 07:16
07/03/24 07:16
Labs
Hgb 16.5 g/dL (13.0-18.0) 07/03/24 07:16
Hct 51.6 % (39.0-52.0) 07/03/24 07:16
Plt Count 200 10^3/uL (130-400) 07/03/24 07:16
Sodium 143 mmol/L (135-145) 07/03/24 07:16
Potassium 3.9 mmol/L (3.5-5.1) 07/03/24 07:16
BUN 18 mg/dl (9-20) 07/03/24 07:16
Creatinine 0.7 mg/dL (0.7-1.3) 07/03/24 07:16
Glucose 172 mg/dl (70-99) H 07/03/24 07:16
Vital Signs and I&O:
Vital Signs
Temp Pulse Resp BP Pulse Ox
97.7 F 76 18 144/90 95
07/03/24 07:40 07/03/24 10:04 07/03/24 08:08 07/03/24 10:04 07/03/24 08:08
Vital Signs
Temp Pulse Resp BP Pulse Ox
97.7 F 76 18 144/90 95
07/03/24 07:40 07/03/24 10:04 07/03/24 08:08 07/03/24 10:04 07/03/24 08:08
Intake & Output
07/01/24 07/02/24 07/03/24 07/04/24
07:59 07:59 07:59 07:59
Intake Total 1420 / 1420 1080 / 1080 1380 / 1380
Output Total 300 / 300 3820 / 3820
Balance 1120 / 1120 1080 / 1080 -2440 / -2440
Physical Exam
Physical Exam
GEN: No distress, awake, alert, oriented x3. obese
HEENT: supple, anicteric, mmm, eomi
LUNGS: CTA B/L, no wheezes/rales
CV: Reg, S1/S2, no murmur
ABD: soft, BS+, NT/ND
EXT: No cyanosis, clubbing. 3+ edema of B/L LE
NEURO: Gross non-focal
SKIN: Warm, pink, dry. No rash
[2024-07-03 11:20] LABS: Glucose - Point of Care 177 mg/dl (70-99)
--- NOTE | 2024-07-03 12:15 | CM ---
Pt seen bedside. Currently on 3L O2. Does not use home O2
O2 home assessment prior to d/c
Per hospitalist, pt will need home O2
Pulmonary will assess BIPAP needs for home
Plan: Home w/ O2 needs anticipated
CM will cont. to follow for additional d/c needs
--- NOTE | 2024-07-03 14:14 | W.PN.HOSP.TC ---
Today's Communication/Plan
-
iv diuresis
bipap qhs
Assessment / Plan
Assessment / Plan
Physical Exam
General: no acute distress. Appears comfortable at this time. Morbidly Obese
HEENT: Thick neck. No noted JVD. On nasal cannula supplementation
Respiratory: Clear to auscultation. No wheezes crackles rhonchi
Cardiac: S1/S2 and Regular Rhythm; No Murmur
GI: Non Tender, Normal Bowel Sounds Induration / mild erythema / abdominal wall edema in the lower abdomen
Musculoskeletal: lower ext pitting edema +2 b/l
Neuro: AO x 3
A/P: Patient is a 44y M with PMH significant for PTSD and obesity who presents to ED complaining of progressive LE edema and fatigue x several months.
Anasarca
Acute Hypoxic and Hypercapnic Respiratory Failure likely multifactorial d/t AHMET and Heart Failure, Asthma
- Renal function appears normal on initial labs.
- suspect d/t Heart Failure unspecified type
- TSH wnl
- ECHO EF 55 to 60%; mild concentric left and reticular hypertrophy, normal diastolic function ventricular hypertrophy; normal diastolic function; mildly enlarged right ventricle with overall preserved RV systolic function, moderately dilated to
left atrium
-Cardiology eval appreciated cont IV diuresis
- Pulmonary eval appreciated nocturnal oxygenation study noted significant desaturation overnight, ABG in AM noted hypercarbia and hypoxia, likely AHMET
-wean o2 as tolerated
--Continue SGLT2 inhibitor.
-bedside spirometry indicative of Asthma- start Symbicort and prn nebs
outpt follow up for sleep study
- I/Os, daily weights
Hypertension
- Adjust regimen as needed for adequate control.
- Hold amlodipine given significant edema.
-cont clonidine valsartan Lasix bystolic w/ holding parameters
DM-II
- Elevated glucose on initial labs.
- Discontinue pioglitazone which exacerbates volume overload.
- Hold other PO medications acutely.
- SSI coverage.
- A1C. appreciated 9.7
Bipolar Disorder
PTSD
- Continue current med regimen including Zonegran, clonidine
- Clonazepam changed to PRN.
- Follow for any changes in mood / new symptoms.
Morbid Obesity
- Weight gain of 60 lbs in the past year.
- Affects all aspects of care and evaluate for obesity related breathing issues as noted above.
- Encourage healthy diet and increased activity with goal of weight loss.
Boil right armpit area 1 inch diameter per nurse
- General Surgery Eval for bedside I&D
-s/p bedside I&D 07/02
-Cont abx x 24 hours
#Suspected AHMET
-trial BiPAP
-pulm following - will need outpatient
- follow-up in the pulmonary-sleep clinic
#Asthma
-start symbicort
-duonebs
Tobacco Use
-nicotine supplementation
-smoking cessation counseled
PT/OT eval appreciated home with home services
DVT Prophylaxis: High dose Lovenox given BMI.
Code Status: Full
I spent a total of 53 minutes with the patient or on the floor. More than 50% of this time involved counseling and coordination of care.
Anticipated Discharge: 24 - 48 hours
Subjective/Interval History
-
Date of Service: July 03, 2024
Had good sleep, attributing to BiPAP
Objective Data
-
Labs:
Laboratory Results
07/03/24
07:16
WBC 6.9
Hgb 16.5
Hct 51.6
Plt Count 200
Sodium 143
Potassium 3.9
Chloride 100
Carbon Dioxide 36 H
BUN 18
Creatinine 0.7
Glucose 172 H
Calcium 8.7
Vital Signs:
Vital Signs
Temp Pulse Resp BP Pulse Ox
98.0 F 77 17 144/90 95
11/06/24 13:27 07/03/24 13:27 07/03/24 13:27 07/03/24 10:04 07/03/24 13:27
I&O
07/02/24 07/03/24 07/04/24
06:59 06:59 06:59
Intake Total 1080 / 1080 1380 / 1380
Output Total 3820 / 3820
Balance 1080 / 1080 -2440 / -2440
Review of Systems
-
History Source: Patient
All other systems: Not reviewed unless documented
Data Reviewed
-
CT Scan: Image personally visualized and interpreted and Report Reviewed by me
Labs: Labs Reviewed by me
[2024-07-03 16:45] LABS: Glucose - Point of Care 137 mg/dl (70-99)
[2024-07-03] MEDS: NOVOLOG FLEXPEN-LOW RESISTANCE SC (17:04)
[2024-07-03] MEDS: NEURONTIN 100 MG PO (18:10)
[2024-07-03] MEDS: CATAPRES 0.3 MG PO (18:11)
[2024-07-03] MEDS: LIPITOR 10 MG PO (18:11)
[2024-07-03] MEDS: GEODON 80 MG PO (18:11)
[2024-07-03] MEDS: TYLENOL 650 MG PO ×2 (18:19→22:29)
[2024-07-03 21:20] LABS: Glucose - Point of Care 178 mg/dl (70-99)
[2024-07-04 05:09] VITALS: BMI 54.2
[2024-07-04 07:33] VITALS: BP 130/92
[2024-07-04 07:52] LABS: Glucose - Point of Care 171 mg/dl (70-99)
[2024-07-04] MEDS: SYMBICORT 160/4.5 MCG INHALER 2 PUFF INH ×2 (07:59→20:14)
[2024-07-04 08:14] LABS: Hematocrit 52.8 % (39.0-52.0); Mean Corp Hgb Conc. 32.2 g/dL (33.0-37.0); Mean Corpuscular Hgb 27.1 pg (27.0-31.0); Mean Corpuscular Volume 84.2 fL (80.0-94.0); Mean Platelet Volume 10.4 fL (7.4-10.4); Platelet Count 200 10^3/uL (130-400); Red Blood Cell Count 6.27 10^6/uL (4.70-6.10); Red Cell Dist. Width 14.5 % (11.5-14.5); White Blood Cell Count 6.9 10^3/uL (4.8-10.8)
[2024-07-04 08:46] LABS: Blood Urea Nitrogen 22 mg/dl (9-20); Calcium 8.9 mg/dl (8.4-10.2); Carbon Dioxide 32 mmol/L (22-30); Chloride 100 mmol/L (98-107); Estimated Creatinine Clearance > 125 ml/min; Glucose 168 mg/dl (70-99); Magnesium 2.4 mg/dl (1.6-2.3); Phosphorus 3.6 mg/dl (2.5-4.5); Potassium 3.8 mmol/L (3.5-5.1); Sodium 143 mmol/L (135-145); eGFR > 60.00
--- NOTE | 2024-07-04 10:05 | W.PN.CARDCBS ---
Addendum entered and electronically signed by Tk Cano MD 07/04/24 10:28:
I saw and examined the patient.
The Washing And Screening Plant Supervisor's note was reviewed and I agree with the note.
Comment: Briefly, 44-year-old man presenting with significant peripheral edema consistent with heart failure with preserved ejection fraction
Weight is down significantly
However he is still requiring supplemental oxygen, wean as able
Creatinine has remained stable - continue to monitor renal function and electrolytes closely
IV lasix twice daily
Continue dapagliflozin and spironolactone to augment diuresis, these are new this admission
Rest per Brenda Beckman
Original Note:
Today's Communication / Plan
-
continue IV diuresis
wean supp O2
Impression / Plan
-
PCP:Regis Sharp
Director Loss Prevention: none
Impression:
Acute on chronic HFpEF, largely right-sided
Morbid obesity
Hypertension
Type 2 diabetes
Bipolar disorder
PTSD
Obstructive sleep apnea-patient denies, nocturnal pulse ox abnormal hypercapnia with hypercarbia
Asthma
Current smoker-2 packs/day
R armstuartt boil s/p bedside I&D 07/02/24
Echo 07/01/2024: EF 55 to 60%, mild concentric LVH, enlarged RV, moderately dilated left atrium, trace mitral and tricuspid regurgitation, PAP 27 mmHg
Plan:
-he reports he is relieved that his scrotal US was without acute abnormalities and he reports swelling there is improving, as this is the main reason he came in to hospital
-He continues to diurese well, now 399 pounds. Continue IV Lasix 40 mg twice daily. prior to admission was on po lasix 20mg daily as well as HCTZ as part of valsartan/HCTZ combo pill. dry weight unknown.
-echo with results as above, EF preserved.
-CHF education.
-tubigrip stockings
-currently on 3L NC. continue to wean as able. eval for home O2 prior to DC. he had nocturnal pulse ox here with significant desaturations overnight and ABG noted hypercarbia suggestive of AHMET, however reports he has had multiple sleep studies as OP
which have all been negative for sleep apnea. also noted to have nocturnal bradycardia on review of tele. he had some claustrophobia with CPAP mask overnight, encouraged to continue use
-BPs overall remain elevated on valsartan 80mg daily, Nebivolol 10mg daily, clonidine 0.3mg HS. OP amlodipine stopped given significant edema. consider increasing valsartan dose to 160mg daily
-farxiga added this admission for CHF and diabetes. OP actos discontinued. blood sugars suboptimally controlled, needs improved control. hgbA1c 8.7%. consider diabetic GUIDE CRUISE consultation.
-in SR/SB upon review of tele overnight.
-smoking cessation
Progress Note - Director Loss Prevention
Subjective
Date of Service: July 04, 2024
reports LE edema improving. remains with good urine output. no CP
Objective
Labs:
07/04/24 07:42
07/04/24 07:42
Labs
Hgb 17.0 g/dL (13.0-18.0) 07/04/24 07:42
Hct 52.8 % (39.0-52.0) H 07/04/24 07:42
Plt Count 200 10^3/uL (130-400) 07/04/24 07:42
Sodium 143 mmol/L (135-145) 07/04/24 07:42
Potassium 3.8 mmol/L (3.5-5.1) 07/04/24 07:42
BUN 22 mg/dl (9-20) H 07/04/24 07:42
Creatinine 0.8 mg/dL (0.7-1.3) 07/04/24 07:42
Glucose 168 mg/dl (70-99) H 07/04/24 07:42
Vital Signs and I&O:
Vital Signs
Temp Pulse Resp BP Pulse Ox
98.5 F 70 16 130/92 93
07/04/24 07:33 07/04/24 07:59 07/04/24 07:59 07/04/24 07:33 07/04/24 07:59
Vital Signs
Temp Pulse Resp BP Pulse Ox
98.5 F 70 16 130/92 93
07/04/24 07:33 07/04/24 07:59 07/04/24 07:59 07/04/24 07:33 07/04/24 07:59
Intake & Output
07/02/24 07/03/24 07/04/24 07/05/24
07:59 07:59 07:59 07:59
Intake Total 1080 / 1080 1380 / 1380 1500 / 1500
Output Total 3820 / 3820 3150 / 3150
Balance 1080 / 1080 -2440 / -2440 -1650 / -1650
Physical Exam
Physical Exam
GEN: No distress, awake, alert, oriented x3. obese
HEENT: supple, anicteric, mmm, eomi
LUNGS: CTA B/L, no wheezes/rales
CV: Reg, S1/S2, no murmur
ABD: soft, BS+, NT/ND
EXT: No cyanosis, clubbing. 2+ edema of B/L LE
NEURO: Gross non-focal
SKIN: Warm, pink, dry. No rash
--- NOTE | 2024-07-04 10:08 | W.PN.PUL3 ---
Today's Communication / Plan
-
Spirometry performed on 07/01 shows findings suspicious for asthma � continue Symbicort 160mcg with prn Duonebs
Continue with BiPAP 12/5cmH2O with sleep --> will need to raise pressures if O2 flow rate cannot be lowered --> last night he only required 5 L/min bled through his BiPAP hence I will leave his pressures alone
Social work/Case management consult to send patient home on BiPAP 12/5cmH2O bled with 5L/min O2
Check ambulatory pulse oximetry tomorrow as I feel he is close to discharge
Trend sHCO3 level - may need diamox if level >40
Continue with diuresis as tolerated
Cardiology consulted and recs appreciated
Tobacco cessation efforts/nicotine patch
Needs follow-up in the pulmonary-sleep clinic
Pulmonary service will continue to follow along while he remains hospitalized
Assessment
-
44-year-old male with [id number] history of smoking ongoing, 60 pound weight gain over the past year, hypertension, bipolar disorder/PTSD you presents with lower extremity swelling, fatigue. Blood work suggest CO2 retention/sleep disorder. We
are asked to comment on pulmonary process
Impression:
Excessive daytime sleepiness, fatigue -patient reports that this is from chronic nightmares with poor sleep/insomnia
60 pound weight gain x 1 year with lower extremity/abdominal/scrotal edema due to suspected acute HFpEF exacerbation
Chronic hypercapnic respiratory failure with compensatory metabolic alkalosis - due to obesity hypoventilation syndrome with contraction alkalosis due to diuresis
Suspected asthma (via spirometry on 07/01/2024)
Insomnia with Hx of nightmares/night terrors
Conditions present prior to admission
PTSD/bipolar disorder
Hypertension
Diabetes
Ongoing smoking, 40+ pack year
Smokes 2 packs a day
Plan/recommendations
At this time, patient appears to be comfortable
He is net -2 L since admission, and net -1.65 L over the last 24 hours
Previously it appeared that his PTSD has limited his ability to follow through with sleep evaluation in the past
He has been using the BiPAP for the last several days and tolerating it (except for evening of 07/03)--> continue this while hospitalized with sleep and he will need to be discharged home with this as well
He has had multiple sleep studies in the past per the patient's report, and they have been reportedly negative
Nocturnal oximetry severely abnormal
ABG consistent with chronic CO2 retention
Moving forward
I suggested that we will need to repeat his sleep study as an outpatient
Overnight oximetry study performed on 06/30 - 07/01/2024 reportedly on 5 L/min showed SpO2 <89% for 2 hours and 59 minutes with harriet SpO2 of 89%
Started BiPAP on evening of 07/01 and he did well with this --> continue BiPAP with sleep on 12/5cmH2O and titrate O2 flow rate to keep saturations >90%
- NOX study performed on the evening of 07/02 - 07/03/2024 showed SpO2 <89% for 2 hours and 52 minutes on BiPAP at 21% FiO2. Once O2 was applied he is SpO2 improved dramatically
- Can try a nasal PAP mask if patient not tolerating full facemask
- Blood gas checked again on AM of 07/02/2024 showed stable chronic hypercapnia with pH 7.41, pCO2 59 --> no need to continue checking blood gases
Echo done on 07/01/2024 showed mildly enlarged RV with preserved RV systolic function and preserved PASP. LVEF 55 to 60% with normal diastolic function and no regional WMA seen. No significant valvular heart disease to account for clinical findings
of ADHF
Unfortunately the echo may not truly be reflecting his pulmonary pressures, although he is continuing to clinically improve; if more accurate assessment of his heart failure status is needed then would recommend a right heart catheterization
Continue IV lasix and maintain net negative fluid balance as tolerated
Cardiology also following - recs appreciated
Scrotal US checked as he feels like his testicles feel funny, like 'jelly' --> show diffuse scrotal wall thickening with no evidence of varicocele, with small bilateral hydroceles (chronic on the right) and no evidence of torsion
We also discussed importance of tobacco cessation
This will also be an ongoing discussion
Eventual outpatient sleep evaluation/PFT
Bedside spirometry performed on 07/01/2024, showing a significant bronchodilator response with marked improvement in the small lung jang, suspicious for reactive airway disease versus asthma.
- Continue Symbicort 160mcg - I did educate the patient saying that it may take 2-4 weeks for him to start feeling a benefit and he is okay with this plan; if no difference felt after 1 month then okay to stop
- Regardless of spirometry findings, this is still not accounting for his fluid overload
He had a boil in the right axilla region and underwent I&D on 07/01/2024 by general surgery; currently on Augmentin; defer Abx to primary team
Obviously weight loss measures will be important to pursue as well - possibly GLP-1 agonist would be of benefit to him
He would benefit from eventual follow-up in the sleep clinic
Continue nicotine patch --> he wants me to lower the dose in an attempt to wean him. I changed this on 07/03
PT/OT --> no needs at this time
Disposition efforts - hopefully he can be discharged home in next 24-48 hrs
Pulmonary service will continue to follow along while he remains hospitalized. He ultimately needs to get his supplemental O2 flow rate going through his BiPAP down to a dose that can be accommodated as an outpatient before he can be discharged.
Ideally a BiPAP titration study would be needed as he may just need higher pressures. On 07/03, he required 5 L/min through his BiPAP, hence I will leave his BiPAP pressures alone, and see how he does tonight and re-check a blood gas tomorrow to
assess stability of his hypercapnia.
Data:
TTE 07/01/2024:
Normal left ventricular size and systolic function with mild concentric left
ventricular hypertrophy
Left ventricular ejection fraction estimated by Morillo's method 55 to 60%
Normal diastolic function
Mildly enlarged right ventricle with overall preserved RV systolic function
Moderately dilated left atrium
Trace mitral and tricuspid regurgitation
Estimated pulmonary artery pressure of 27 mmHg, assuming a right atrial
pressure of 3 mmHg.
No prior study available for comparison
Scrotal US 07/03/2024:
No findings to confirm testicular torsion bilaterally.
Small bilateral hydroceles, chronic on the right.
Some predominantly diffuse scrotal wall thickening bilaterally.
Total time spent today was 37 minutes for this encounter. Time includes reviewing laboratory test/imaging results, reviewing pertinent medical records, obtaining and reviewing medical history, performing an appropriate exam, ordering medications,
tests and procedures. Time also includes documentation of this encounter, coordinating patient care and communicating with other healthcare professionals. Total time does not include separately billed tests performed on this date of service.
Subjective Data
-
Date of Service:
Date of Service: July 04, 2024
Chief Complaint: Pulmonary Follow Up
Subjective:
Patient was seen and evaluated today at bedside. Last night he tolerated his BiPAP on 12/5cmH2O bled with 5 L/min, but after about 3 hours he took off the mask as he had 'too many things' on his body which was greatly disrupting his sleep,
including the telemetry pack/cardiac leads in addition to his BiPAP mask. He was placed onto 3 L/min nasal cannula at that time. This morning when I saw him he was on 3 L/min nasal cannula breathing comfortably, saturating 94%. He currently feels
well, is eager to go home. He denies chest pain, REYES, abdominal pain, nausea, fevers or chills.
Review of Systems
General: Other (Negative unless mentioned above)
Objective Data
Data Reviewed
Vital Signs / I&O / Oxygen:
Vital Signs
Temp Pulse Resp BP Pulse Ox
98.8 F 69 20 137/81 99
07/04/24 11:22 07/04/24 11:22 07/04/24 11:22 07/04/24 11:22 07/04/24 11:22
Intake and Output
07/03/24 07/04/24 07/05/24
06:59 06:59 06:59
Intake Total 1380 / 1380 1500 / 1500
Output Total 3820 / 3820 3150 / 3150
Balance -2440 / -2440 -1650 / -1650
SaO2 99
Nasal Cannula flow liters per 3
minute
Physical Exam
General: Respiratory Distress (negative), Comfortable, Chills (negative), Sweats (negative) and Other (Thick neck; morbidly obese)
HEENT: Normocephalic, Anicteric and Other
Cardiovascular: S1-S2, Murmur (n), Peripheral Edema (+1 LE edema bilaterally) and Other (Distant cardiac sounds due to body habitus)
Respiratory: Clear, Wheeze (negative), Crackles (n), Rhonchi (negative), Non-Labored Respirations and Other (Diminished breath sounds bilaterally)
GI: Soft, Distended (Abdominal obesity + fluid retention), Non Tender and Normal Bowel Sounds
Neurology: AO x 3 and Tremors (negative)
Skin: Warm, Dry, Cyanosis (n), Jaundice (n), Rash (Chronic venous stasis changes in bilateral lower extremities) and Other (Excoriations seen on bilateral lower extremities with venous stasis dermatitis changes)
Labs/Micro/Reports
Lab Data
07/04/24 07:42
07/04/24 07:42
Microbiology
07/01/24 17:27 Abscess Anaerobic Culture - Preliminary
Culture pending. Anaerobic cultures are examined after 3
days incubation. Additional information to follow.
07/01/24 17:27 Abscess Wound Culture - Preliminary
No growth
07/01/24 17:27 Abscess Gram Stain - Preliminary
[2024-07-04] MEDS: NICODERM TRANSDERMAL 14 MG TRANSDERM (10:11)
[2024-07-04] MEDS: NOVOLOG FLEXPEN-LOW RESISTANCE 1 UNITS SC ×2 (10:11→12:38)
[2024-07-04] MEDS: BYSTOLIC 10 MG PO (10:12)
[2024-07-04] MEDS: DIOVAN 80 MG PO (10:12)
[2024-07-04] MEDS: ALDACTONE 25 MG PO (10:13)
[2024-07-04] MEDS: AUGMENTIN 875 MG/125 MG 1 TABLET PO ×2 (10:13→19:37)
[2024-07-04] MEDS: FARXIGA 10 MG PO (10:13)
[2024-07-04] MEDS: DESENEX/MITRAZOL/ZEASORB 1 APPLIC TOPICAL ×2 (10:14→19:39)
[2024-07-04] MEDS: LOVENOX 40 MG SC ×2 (10:14→19:38)
[2024-07-04] MEDS: LASIX 40 MG IV ×2 (10:14→16:05)
[2024-07-04] MEDS: FLUSH (NSS) 1 FLUSH IV (10:15)
[2024-07-04 11:22] VITALS: BP 137/81
[2024-07-04 11:40] LABS: Glucose - Point of Care 165 mg/dl (70-99)
[2024-07-04] MEDS: KLONOPIN 0.5 MG PO (13:47)
[2024-07-04] MEDS: TYLENOL 650 MG PO ×2 (13:47→19:37)
--- NOTE | 2024-07-04 13:51 | W.PN.HOSP.TC ---
Today's Communication/Plan
-
Continue IV diuresis, diuretics
BiPAP at night and naps
Assessment / Plan
Assessment / Plan
Physical Exam
General: no acute distress. Appears comfortable at this time. Morbidly Obese
HEENT: Thick neck. No noted JVD. On nasal cannula supplementation
Respiratory: Clear to auscultation. No wheezes crackles rhonchi
Cardiac: S1/S2 and Regular Rhythm; No Murmur
GI: Non Tender, Normal Bowel Sounds Induration / mild erythema / abdominal wall edema in the lower abdomen
Musculoskeletal: lower ext pitting edema +2 b/l
Neuro: AO x 3
A/P: Patient is a 44y M with PMH significant for PTSD and obesity who presents to ED complaining of progressive LE edema and fatigue x several months.
Anasarca
Acute Hypoxic and Hypercapnic Respiratory Failure likely multifactorial d/t AHMET and Heart Failure, Asthma
- Renal function appears normal on initial labs.
- suspect d/t Heart Failure unspecified type
- TSH wnl
- ECHO EF 55 to 60%; mild concentric left and reticular hypertrophy, normal diastolic function ventricular hypertrophy; normal diastolic function; mildly enlarged right ventricle with overall preserved RV systolic function, moderately dilated to
left atrium
-Cardiology eval appreciated cont IV diuresis
- Pulmonary eval appreciated nocturnal oxygenation study noted significant desaturation overnight, ABG in AM noted hypercarbia and hypoxia, likely AHMET
-wean o2 as tolerated
--Continue SGLT2 inhibitor.
-bedside spirometry indicative of Asthma- start Symbicort and prn nebs
outpt follow up for sleep study
- I/Os, daily weights
Hypertension
- Adjust regimen as needed for adequate control.
- Hold amlodipine given significant edema.
-cont clonidine valsartan Lasix bystolic w/ holding parameters
DM-II
- Elevated glucose on initial labs.
- Discontinue pioglitazone which exacerbates volume overload.
- Hold other PO medications acutely.
- SSI coverage.
- A1C. appreciated 9.7
Bipolar Disorder
PTSD
- Continue current med regimen including Zonegran, clonidine
- Clonazepam changed to PRN.
- Follow for any changes in mood / new symptoms.
Morbid Obesity
- Weight gain of 60 lbs in the past year.
- Affects all aspects of care and evaluate for obesity related breathing issues as noted above.
- Encourage healthy diet and increased activity with goal of weight loss.
Boil right armpit area 1 inch diameter per nurse
- General Surgery Eval for bedside I&D
-s/p bedside I&D 07/02
-Cont abx x 24 hours
#Suspected AHMET
-Continue BiPAP 08/01
-pulm following - will need outpatient
- follow-up in the pulmonary-sleep clinic
Testicular bump
� Ultrasound with no evidence of severe issues
� No testicular torsion bilaterally
� Small bilateral hydroceles, chronic on the right
� Predominantly diffuse scrotal wall thickening bilaterally
#Asthma
-start symbicort
-duonebs
Tobacco Use
-nicotine supplementation
-smoking cessation counseled
PT/OT eval appreciated home with home services
DVT Prophylaxis: High dose Lovenox given BMI.
Code Status: Full
I spent a total of 51 minutes with the patient or on the floor. More than 50% of this time involved counseling and coordination of care.
Anticipated Discharge: 24 - 48 hours
Subjective/Interval History
-
Date of Service: July 04, 2024
No acute events, diuresing well
Objective Data
-
Labs:
Laboratory Results
07/04/24
07:42
WBC 6.9
Hgb 17.0
Hct 52.8 H
Plt Count 200
Sodium 143
Potassium 3.8
Chloride 100
Carbon Dioxide 32 H
BUN 22 H
Creatinine 0.8
Glucose 168 H
Calcium 8.9
Vital Signs:
Vital Signs
Temp Pulse Resp BP Pulse Ox
98.8 F 69 20 137/81 99
07/04/24 11:22 07/04/24 11:22 07/04/24 11:22 07/04/24 11:22 07/04/24 11:22
I&O
07/03/24 07/04/24 07/05/24
06:59 06:59 06:59
Intake Total 1380 / 1380 1500 / 1500
Output Total 3820 / 3820 3150 / 3150
Balance -2440 / -2440 -1650 / -1650
Review of Systems
-
History Source: Patient
All other systems: Not reviewed unless documented
Data Reviewed
-
CT Scan: Image personally visualized and interpreted and Report Reviewed by me
Labs: Labs Reviewed by me
[2024-07-04 15:48] VITALS: BP 146/73
--- NOTE | 2024-07-04 15:59 | PTCARENOTE ---
pt AAO x3, WATKINS well, ambulatory in room/to BR; erick well. no c/o weakness/dizziness. VSS. telemetry:NSR. Currently on nc 2 lpm- -pulse ox 94%, pt with (+) slight tachypnea; denies SOB. Abd obese, soft, erick PO well. Voiding clear yellow urine in
urinal. Pt reminded frequently about importance of maintaining 1440 ml fl restriction. Knee-high Tubigrips in place to BLE. Resting in bed at present, no c/o. Will continue to monitor.
[2024-07-04 16:36] LABS: Glucose - Point of Care 140 mg/dl (70-99)
[2024-07-04] MEDS: NOVOLOG FLEXPEN-LOW RESISTANCE SC (16:39)
[2024-07-04] MEDS: GEODON 80 MG PO (18:08)
[2024-07-04] MEDS: LIPITOR 10 MG PO (18:09)
[2024-07-04] MEDS: NEURONTIN 100 MG PO (18:09)
[2024-07-04] MEDS: CATAPRES 0.3 MG PO (18:09)
[2024-07-04 19:12] VITALS: BP 152/86
[2024-07-04 21:05] VITALS: PULSE 2
[2024-07-04 21:15] LABS: Glucose - Point of Care 170 mg/dl (70-99)
[2024-07-04 23:48] VITALS: BP 127/67
[2024-07-05] VITALS (7 sets, daily range): BP systolic 119–152; BP diastolic 63–81; PULSE 2–61; BMI 53.6
[2024-07-05 07:35] LABS: Glucose - Point of Care 175 mg/dl (70-99)
[2024-07-05] MEDS: SYMBICORT 160/4.5 MCG INHALER 2 PUFF INH ×2 (07:49→20:03)
--- NOTE | 2024-07-05 09:01 | W.PN.CARDCBS ---
Addendum entered and electronically signed by kT Cano MD 07/05/24 11:42:
I saw and examined the patient.
The Executive Administrative Assistant's note was reviewed and I agree with the note.
Comment: Briefly, 44-year-old man presenting with significant peripheral edema consistent with heart failure with preserved ejection fraction
Weight is down significantly
However he is still requiring supplemental oxygen, wean as able
Creatinine has remained stable - continue to monitor renal function and electrolytes closely
IV lasix twice daily
Continue dapagliflozin and spironolactone to augment diuresis, these are new this admission
Patient is anxious to be discharged, hopefully can transitioned to PO lasix in next 24-48hrs
Original Note:
Today's Communication / Plan
-
continue diuresis
awaiting AM labs
increase valsartan
wean O2
Impression / Plan
-
PCP:Regis Sharp
[employer]: none
Impression:
Acute on chronic HFpEF, largely right-sided
Morbid obesity
Hypertension
Type 2 diabetes
Bipolar disorder
PTSD
Obstructive sleep apnea-patient denies, nocturnal pulse ox abnormal hypercapnia with hypercarbia
Asthma
Current smoker-2 packs/day
R armshemar richardson s/p bedside I&D 07/02/24
Echo 07/01/2024: EF 55 to 60%, mild concentric LVH, enlarged RV, moderately dilated left atrium, trace mitral and tricuspid regurgitation, PAP 27 mmHg
Plan:
-He continues to respond well to IV diuresis. Weight now 395 pounds. Dry weight unknown. Continue IV Lasix 40 mg twice daily. prior to admission was on po lasix 20mg daily as well as HCTZ as part of valsartan/HCTZ combo pill. would attempt to
diurese inpatient until Cr bumps.
-echo with results as above, EF preserved.
-CHF education.
-tubigrip stockings
-currently on 2L NC. continue to wean as able. eval for home O2 prior to DC. he had nocturnal pulse ox here with significant desaturations overnight and ABG noted hypercarbia suggestive of AHMET, however reports he has had multiple sleep studies as OP
which have all been negative for sleep apnea. also noted to have nocturnal bradycardia on review of tele. continue CPAP as able
-BPs overall remain elevated on valsartan 80mg daily, Nebivolol 10mg daily, clonidine 0.3mg HS. OP amlodipine stopped given significant edema. will increase valsartan dose to 160mg daily
-farxiga added this admission for CHF and diabetes. OP actos discontinued. blood sugars suboptimally controlled, needs improved control. hgbA1c 8.7%. consider diabetic [employer] consultation.
-in SR/SB upon review of tele overnight.
-smoking cessation
-OP cardiac follow up arranged
Progress Note - [employer]
Subjective
Date of Service: July 05, 2024
reports continued response to diuresis
Objective
Labs:
Labs
Hgb 17.0 g/dL (13.0-18.0) 07/04/24 07:42
Hct 52.8 % (39.0-52.0) H 07/04/24 07:42
Plt Count 200 10^3/uL (130-400) 07/04/24 07:42
Sodium 143 mmol/L (135-145) 07/04/24 07:42
Potassium 3.8 mmol/L (3.5-5.1) 07/04/24 07:42
BUN 22 mg/dl (9-20) H 07/04/24 07:42
Creatinine 0.8 mg/dL (0.7-1.3) 07/04/24 07:42
Glucose 168 mg/dl (70-99) H 07/04/24 07:42
Vital Signs and I&O:
Vital Signs
Temp Pulse Resp BP Pulse Ox
98.2 F 72 16 145/77 94
07/05/24 07:22 07/05/24 07:50 07/05/24 07:50 07/05/24 07:22 07/05/24 07:50
Vital Signs
Temp Pulse Resp BP Pulse Ox
98.2 F 72 16 145/77 94
07/05/24 07:22 07/05/24 07:50 07/05/24 07:50 07/05/24 07:22 07/05/24 07:50
Intake & Output
07/03/24 07/04/24 07/05/24 07/06/24
07:59 07:59 07:59 07:59
Intake Total 1380 / 1380 1500 / 1500 1740 / 1740
Output Total 3820 / 3820 3150 / 3150 3075 / 3075
Balance -2440 / -2440 -1650 / -1650 -1335 / -1335
Physical Exam
Physical Exam
GEN: No distress, awake, alert, oriented x3. obese. on supp O2
HEENT: supple, anicteric, mmm, eomi
LUNGS: CTA B/L, no wheezes/rales
CV: Reg, S1/S2, no murmur
ABD: soft, BS+, NT/ND
EXT: No cyanosis, clubbing. 2+ edema of RLE, 1+ of LLE
NEURO: Gross non-focal
SKIN: Warm, pink, dry. No rash
[2024-07-05] MEDS: LASIX 40 MG IV ×2 (09:09→17:06)
[2024-07-05] MEDS: NICODERM TRANSDERMAL 14 MG TRANSDERM (09:09)
[2024-07-05] MEDS: LOVENOX 40 MG SC ×2 (09:10→20:43)
[2024-07-05] MEDS: AUGMENTIN 875 MG/125 MG 1 TABLET PO ×2 (09:10→20:44)
[2024-07-05] MEDS: BYSTOLIC 10 MG PO (09:10)
[2024-07-05] MEDS: FARXIGA 10 MG PO (09:12)
[2024-07-05] MEDS: NOVOLOG FLEXPEN-LOW RESISTANCE 1 UNITS SC ×3 (09:12→17:06)
[2024-07-05] MEDS: ALDACTONE 25 MG PO (09:12)
[2024-07-05] MEDS: DESENEX/MITRAZOL/ZEASORB 1 APPLIC TOPICAL ×2 (09:19→20:45)
[2024-07-05] MEDS: DIOVAN PO (09:20)
[2024-07-05 09:33] LABS: Venous Blood Gas B.E. 6.2 mmol/L (-4 to +4); Venous Blood Gas HCO3 32.4 mmol/L (22-27); Venous Blood Gas O2 Sat % 95.1 %; Venous Blood Gas pCO2 50 mmHg (35-48); Venous Blood Gas pH 7.42 (7.32-7.43); Venous Blood Gas pO2 67 mmHg (30-50)
[2024-07-05 09:35] LABS: Hematocrit 55.6 % (39.0-52.0); Hemoglobin 17.6 g/dL (13.0-18.0); Mean Corp Hgb Conc. 31.7 g/dL (33.0-37.0); Mean Corpuscular Hgb 27.7 pg (27.0-31.0); Mean Corpuscular Volume 87.6 fL (80.0-94.0); Mean Platelet Volume 10.7 fL (7.4-10.4); Platelet Count 197 10^3/uL (130-400); Red Blood Cell Count 6.35 10^6/uL (4.70-6.10); Red Cell Dist. Width 14.4 % (11.5-14.5); White Blood Cell Count 8.3 10^3/uL (4.8-10.8)
--- NOTE | 2024-07-05 09:41 | W.PN.PUL3 ---
Today's Communication / Plan
-
Spirometry performed on 07/01 shows findings suspicious for asthma � continue Symbicort 160mcg with prn Duonebs
Continue with BiPAP 12/5cmH2O with sleep
Social work/Case management consulted to send patient home on BiPAP 12/5cmH2O bled with 4L/min O2
Check ambulatory pulse oximetry prior to discharge
Trend sHCO3 level - may need diamox if level >40
Continue with diuresis as tolerated
Cardiology consulted and recs appreciated
Tobacco cessation efforts/nicotine patch
Needs follow-up in the pulmonary-sleep clinic
Pulmonary service will continue to follow along while he remains hospitalized
Assessment
-
44-year-old male with [id number] history of smoking ongoing, 60 pound weight gain over the past year, hypertension, bipolar disorder/PTSD you presents with lower extremity swelling, fatigue. Blood work suggest CO2 retention/sleep disorder. We
are asked to comment on pulmonary process
Impression:
Excessive daytime sleepiness, fatigue -patient reports that this is from chronic nightmares with poor sleep/insomnia
60 pound weight gain x 1 year with lower extremity/abdominal/scrotal edema due to suspected acute HFpEF exacerbation
Chronic hypercapnic respiratory failure with compensatory metabolic alkalosis - due to obesity hypoventilation syndrome with contraction alkalosis due to diuresis
Suspected asthma (via spirometry on 07/01/2024)
Insomnia with Hx of nightmares/night terrors --> improved with nocturnal O2/BiPAP
Conditions present prior to admission
PTSD/bipolar disorder
Hypertension
Diabetes
Ongoing smoking, 40+ pack year
Smokes 2 packs a day
Plan/recommendations
At this time, patient appears to be comfortable
He is net -3.3 L since admission, and net -1.3 L over the last 24 hours
Previously it appeared that his PTSD has limited his ability to follow through with sleep evaluation in the past
He has been using the BiPAP for the first several days and tolerating it (except for evening of 07/03 + 07/04)--> continue this while hospitalized with sleep and he will need to be discharged home with this as well
He has had multiple sleep studies in the past per the patient's report, and they have been reportedly negative
Nocturnal oximetry severely abnormal
ABG consistent with chronic CO2 retention
Moving forward
I suggested that we will need to repeat his sleep study as an outpatient
Overnight oximetry study performed on 06/30 - 07/01/2024 reportedly on 5 L/min showed SpO2 <89% for 2 hours and 59 minutes with harriet SpO2 of 89%
Started BiPAP on evening of 07/01 and he did well with this --> continue BiPAP with sleep on 12/5cmH2O and titrate O2 flow rate to keep saturations >90%
- NOX study performed on the evening of 07/02 - 07/03/2024 showed SpO2 <89% for 2 hours and 52 minutes on BiPAP at 21% FiO2. Once O2 was applied he is SpO2 improved dramatically
- Can try a nasal PAP mask if patient not tolerating full facemask
- Blood gas checked again on AM of 07/02/2024 showed stable chronic hypercapnia with pH 7.41, pCO2 59 --> no need to continue checking blood gases
Patient requires noninvasive volume ventilation due to OHS, BiLevel has been considered and ruled out, including BiLevel VAPS. Patient requires pressures greater than 30 cmH2O which is not supported by a BilLvel VAPS due to body habitus. A
traditional ventilator will exceed pressures greater than 30 cmH2O with a max pressure of 50 cmH2O.
Echo done on 07/01/2024 showed mildly enlarged RV with preserved RV systolic function and preserved PASP. LVEF 55 to 60% with normal diastolic function and no regional WMA seen. No significant valvular heart disease to account for clinical findings
of ADHF
Unfortunately the echo may not truly be reflecting his pulmonary pressures, although he is continuing to clinically improve; if more accurate assessment of his heart failure status is needed then would recommend a right heart catheterization
Continue IV lasix and maintain net negative fluid balance as tolerated
Cardiology also following - recs appreciated
Scrotal US checked as he feels like his testicles feel funny, like 'jelly' --> show diffuse scrotal wall thickening with no evidence of varicocele, with small bilateral hydroceles (chronic on the right) and no evidence of torsion
We also discussed importance of tobacco cessation
This will also be an ongoing discussion
Eventual outpatient sleep evaluation/PFT
Bedside spirometry performed on 07/01/2024, showing a significant bronchodilator response with marked improvement in the small lung jang, suspicious for reactive airway disease versus asthma.
- Continue Symbicort 160mcg - I did educate the patient saying that it may take 2-4 weeks for him to start feeling a benefit and he is okay with this plan; if no difference felt after 1 month then okay to stop
- Regardless of spirometry findings, this is still not accounting for his fluid overload
He had a boil in the right axilla region and underwent I&D on 07/01/2024 by general surgery; currently on Augmentin; defer Abx to primary team
Obviously weight loss measures will be important to pursue as well - possibly GLP-1 agonist would be of benefit to him
He would benefit from eventual follow-up in the sleep clinic
Continue nicotine patch --> he wants me to lower the dose in an attempt to wean him. I changed this on 07/03
PT/OT --> no needs at this time
Disposition efforts - hopefully he can be discharged home in next 24hrs
He ultimately needs to get his supplemental O2 flow rate going through his BiPAP down to a dose that can be accommodated as an outpatient before he can be discharged. Ideally a BiPAP titration study would be needed as he may just need higher
pressures. On 07/03, he required 5 L/min through his BiPAP, and on 07/04 he only needed 3L/min through his BiPAP, hence I will leave his BiPAP pressures alone. Blood gas shows stable hypercapnia.
Pulmonary service will continue to follow along while he remains hospitalized. Outpatient follow-up with our office will also be arranged.
Data:
TTE 07/01/2024:
Normal left ventricular size and systolic function with mild concentric left
ventricular hypertrophy
Left ventricular ejection fraction estimated by Morillo's method 55 to 60%
Normal diastolic function
Mildly enlarged right ventricle with overall preserved RV systolic function
Moderately dilated left atrium
Trace mitral and tricuspid regurgitation
Estimated pulmonary artery pressure of 27 mmHg, assuming a right atrial
pressure of 3 mmHg.
No prior study available for comparison
Scrotal US 07/03/2024:
No findings to confirm testicular torsion bilaterally.
Small bilateral hydroceles, chronic on the right.
Some predominantly diffuse scrotal wall thickening bilaterally.
Total time spent today was 42 minutes for this encounter. Time includes reviewing laboratory test/imaging results, reviewing pertinent medical records, obtaining and reviewing medical history, performing an appropriate exam, ordering medications,
tests and procedures. Time also includes documentation of this encounter, coordinating patient care and communicating with other healthcare professionals. Total time does not include separately billed tests performed on this date of service.
Subjective Data
-
Date of Service:
Date of Service: July 05, 2024
Chief Complaint: Pulmonary Follow Up
Subjective:
Patient seen and evaluated today at bedside. Afebrile overnight. He feels well, currently breathing comfortably on 2 L/min nasal cannula. Placed onto BiPAP last night at around 9:00 on 08/01 blood with 3 L/min. He removed it about 3 and half
hours later as he was unable to tolerate it. He says that the telemetry pack makes him very hot and then he can fall back asleep. He currently denies chest pain, REYES, abdominal pain, nausea, fevers or chills.
Review of Systems
General: Other (Negative unless mentioned above)
Objective Data
Data Reviewed
Vital Signs / I&O / Oxygen:
Vital Signs
Temp Pulse Resp BP Pulse Ox
99.1 F 65 20 152/81 98
07/05/24 11:43 07/05/24 11:43 07/05/24 11:43 07/05/24 11:43 07/05/24 11:43
Intake and Output
07/04/24 07/05/24 07/06/24
06:59 06:59 06:59
Intake Total 1500 / 1500 1740 / 1740
Output Total 3150 / 3150 3075 / 3075
Balance -1650 / -1650 -1335 / -1335
SaO2 98
Nasal Cannula flow liters per 3
minute
Physical Exam
General: Respiratory Distress (negative), Comfortable, Chills (negative), Sweats (negative) and Other (Morbidly obese)
HEENT: Normocephalic, Anicteric and Other (Thick neck)
Cardiovascular: S1-S2, Murmur (n), Peripheral Edema (+1 LE edema bilaterally) and Other (Distant cardiac sounds due to body habitus)
Respiratory: Clear, Wheeze (negative), Crackles (n), Rhonchi (negative), Non-Labored Respirations and Other (Diminished breath sounds bilaterally)
GI: Soft, Distended (Abdominal obesity + fluid retention), Non Tender and Normal Bowel Sounds
Neurology: AO x 3 and Tremors (negative)
Skin: Warm, Dry, Cyanosis (n), Jaundice (n), Rash (Chronic venous stasis changes in bilateral lower extremities) and Other (Excoriations seen on bilateral lower extremities)
Labs/Micro/Reports
Lab Data
07/05/24 09:22
07/05/24 09:22
Microbiology
07/01/24 17:27 Abscess Anaerobic Culture - Preliminary
Culture pending. Anaerobic cultures are examined after 3
days incubation. Additional information to follow.
07/01/24 17:27 Abscess Wound Culture - Preliminary
No growth
07/01/24 17:27 Abscess Gram Stain - Preliminary
[2024-07-05 10:10] LABS: NT-proBNP 94.3 pg/ml
[2024-07-05 10:11] LABS: Blood Urea Nitrogen 23 mg/dl (9-20); Calcium 9.1 mg/dl (8.4-10.2); Carbon Dioxide 29 mmol/L (22-30); Chloride 100 mmol/L (98-107); Estimated Creatinine Clearance > 125 ml/min; Glucose 239 mg/dl (70-99); Magnesium 2.4 mg/dl (1.6-2.3); Phosphorus 3.7 mg/dl (2.5-4.5); Potassium 4.1 mmol/L (3.5-5.1); Sodium 140 mmol/L (135-145); eGFR > 60.00
[2024-07-05 11:58] LABS: Glucose - Point of Care 152 mg/dl (70-99)
--- NOTE | 2024-07-05 14:05 | W.PN.HOSP.TC ---
Today's Communication/Plan
-
diuresis
Assessment / Plan
Assessment / Plan
Physical Exam
General: no acute distress. Appears comfortable at this time. Morbidly Obese
HEENT: Thick neck. No noted JVD. On nasal cannula supplementation
Respiratory: Clear to auscultation. No wheezes crackles rhonchi
Cardiac: S1/S2 and Regular Rhythm; No Murmur
GI: Non Tender, Normal Bowel Sounds Induration / mild erythema / abdominal wall edema in the lower abdomen
Musculoskeletal: lower ext pitting edema +2 b/l
Neuro: AO x 3
A/P: Patient is a 44y M with PMH significant for PTSD and obesity who presents to ED complaining of progressive LE edema and fatigue x several months.
Anasarca
Acute Hypoxic and Hypercapnic Respiratory Failure likely multifactorial d/t AHMET and Heart Failure, Asthma
- Renal function appears normal on initial labs.
- suspect d/t Heart Failure unspecified type
- TSH wnl
- ECHO EF 55 to 60%; mild concentric left and reticular hypertrophy, normal diastolic function ventricular hypertrophy; normal diastolic function; mildly enlarged right ventricle with overall preserved RV systolic function, moderately dilated to
left atrium
-Cardiology eval appreciated cont IV diuresis
- Pulmonary eval appreciated nocturnal oxygenation study noted significant desaturation overnight, ABG in AM noted hypercarbia and hypoxia, likely AHMET
-wean o2 as tolerated
--Continue SGLT2 inhibitor.
-bedside spirometry indicative of Asthma- start Symbicort and prn nebs
outpt follow up for sleep study
- I/Os, daily weights
Hypertension
- Adjust regimen as needed for adequate control.
- Hold amlodipine given significant edema.
-cont clonidine valsartan Lasix bystolic w/ holding parameters
DM-II
- Elevated glucose on initial labs.
- Discontinue pioglitazone which exacerbates volume overload.
- Hold other PO medications acutely.
- SSI coverage.
- A1C. appreciated 9.7
Bipolar Disorder
PTSD
- Continue current med regimen including Zonegran, clonidine
- Clonazepam changed to PRN.
- Follow for any changes in mood / new symptoms.
Morbid Obesity
- Weight gain of 60 lbs in the past year.
- Affects all aspects of care and evaluate for obesity related breathing issues as noted above.
- Encourage healthy diet and increased activity with goal of weight loss.
Boil right armpit area 1 inch diameter per nurse
- General Surgery Eval for bedside I&D
-s/p bedside I&D 07/02
-Cont abx x 24 hours
#Suspected AHMET
-Continue BiPAP 08/01
-pulm following - will need outpatient
- follow-up in the pulmonary-sleep clinic
Testicular bump
� Ultrasound with no evidence of severe issues
� No testicular torsion bilaterally
� Small bilateral hydroceles, chronic on the right
� Predominantly diffuse scrotal wall thickening bilaterally
#Asthma
-start symbicort
-duonebs
Tobacco Use
-nicotine supplementation
-smoking cessation counseled
PT/OT eval appreciated home with home services
DVT Prophylaxis: High dose Lovenox given BMI.
Code Status: Full
I spent a total of 53 minutes with the patient or on the floor. More than 50% of this time involved counseling and coordination of care.
Anticipated Discharge: 24 - 48 hours
Subjective/Interval History
-
Date of Service: July 05, 2024
no acute events
Objective Data
-
Labs:
Laboratory Results
07/05/24
09:22
WBC 8.3
Hgb 17.6
Hct 55.6 H
Plt Count 197
Sodium 140
Potassium 4.1
Chloride 100
Carbon Dioxide 29
BUN 23 H
Creatinine 0.7
Glucose 239 H
Calcium 9.1
Vital Signs:
Vital Signs
Temp Pulse Resp BP Pulse Ox
99.1 F 65 20 152/81 98
07/05/24 11:43 07/05/24 11:43 07/05/24 11:43 07/05/24 11:43 07/05/24 11:43
I&O
07/04/24 07/05/24 07/06/24
06:59 06:59 06:59
Intake Total 1500 / 1500 1740 / 1740
Output Total 3150 / 3150 3075 / 3075
Balance -1650 / -1650 -1335 / -1335
Review of Systems
-
History Source: Patient
All other systems: Not reviewed unless documented
Data Reviewed
-
CT Scan: Image personally visualized and interpreted and Report Reviewed by me
Labs: Labs Reviewed by me
--- NOTE | 2024-07-05 15:34 | CM ---
Addendum entered by Dee Parikh 07/05/24 16:21:
[facility]
fax#[phone]
Original Note:
CM discussed home oxygen and and home BiPAP with patient, agreeable.
Options discussed, [employer] chosen.
Orders noted for BiPAP, information sent to Savanna from [facility], she will be able to get BiPAP delivered Monday.
Patient still needs home oxygen assessment and will need order form, and note sent to Savanna at [facility].
Patient interested in VN post hospitalization. Patient will be d/c on oxygen and bipap, both new. Patient also may be interested in a ANNEALING OPERATOR for assistance with a shower.
Options discussed, he lives with his mother and she is current with [facility] and he would like the same agency.
Referral placed for [facility].
Plan: Home with [facility], home oxygen and BiPAP thru [facility] (still needs home oxygen assessment) BiPAP to be delivered Monday.
[2024-07-05 16:31] LABS: Glucose - Point of Care 152 mg/dl (70-99)
[2024-07-05] MEDS: CATAPRES 0.3 MG PO (18:08)
[2024-07-05] MEDS: GEODON 80 MG PO (18:08)
[2024-07-05] MEDS: NEURONTIN 100 MG PO (18:08)
[2024-07-05] MEDS: LIPITOR 10 MG PO (18:08)
[2024-07-05] MEDS: TYLENOL 650 MG PO (20:49)
[2024-07-05 21:31] LABS: Glucose - Point of Care 160 mg/dl (70-99)
[2024-07-06] VITALS (7 sets, daily range): BP systolic 120–154; BP diastolic 65–85; PULSE 2; BMI 53.3
[2024-07-06 06:50] LABS: Hematocrit 52.5 % (39.0-52.0); Hemoglobin 16.6 g/dL (13.0-18.0); Mean Corp Hgb Conc. 31.6 g/dL (33.0-37.0); Mean Corpuscular Hgb 27.9 pg (27.0-31.0); Mean Corpuscular Volume 88.4 fL (80.0-94.0); Mean Platelet Volume 11.2 fL (7.4-10.4); Platelet Count 192 10^3/uL (130-400); Red Blood Cell Count 5.94 10^6/uL (4.70-6.10); Red Cell Dist. Width 14.6 % (11.5-14.5); White Blood Cell Count 7.3 10^3/uL (4.8-10.8)
[2024-07-06 07:14] LABS: Blood Urea Nitrogen 24 mg/dl (9-20); Calcium 8.8 mg/dl (8.4-10.2); Carbon Dioxide 32 mmol/L (22-30); Chloride 99 mmol/L (98-107); Estimated Creatinine Clearance > 125 ml/min; Glucose 161 mg/dl (70-99); Magnesium 2.4 mg/dl (1.6-2.3); Phosphorus 3.6 mg/dl (2.5-4.5); Potassium 3.6 mmol/L (3.5-5.1); Sodium 141 mmol/L (135-145); eGFR > 60.00
[2024-07-06 07:23] LABS: Glucose - Point of Care 142 mg/dl (70-99)
[2024-07-06] MEDS: SYMBICORT 160/4.5 MCG INHALER 2 PUFF INH ×2 (07:34→17:52)
[2024-07-06] MEDS: NICODERM TRANSDERMAL 14 MG TRANSDERM (09:06)
[2024-07-06] MEDS: NOVOLOG FLEXPEN-LOW RESISTANCE SC ×2 (09:06→17:02)
[2024-07-06] MEDS: LOVENOX 40 MG SC ×2 (09:07→19:59)
[2024-07-06] MEDS: AUGMENTIN 875 MG/125 MG 1 TABLET PO ×2 (09:07→19:59)
[2024-07-06] MEDS: BYSTOLIC 10 MG PO (09:08)
[2024-07-06] MEDS: DIOVAN 160 MG PO (09:08)
[2024-07-06] MEDS: ALDACTONE 25 MG PO (09:08)
[2024-07-06] MEDS: FARXIGA 10 MG PO (09:09)
[2024-07-06] MEDS: LASIX 40 MG IV (09:09)
[2024-07-06] MEDS: FLUSH (NSS) 1 FLUSH IV (09:09)
[2024-07-06] MEDS: DESENEX/MITRAZOL/ZEASORB 1 APPLIC TOPICAL ×2 (09:10→20:00)
--- NOTE | 2024-07-06 11:50 | W.PN.CARDCBS ---
Today's Communication / Plan
-
Transition to PO lasix today
Impression / Plan
-
PCP:Regis Sharp
Flatwork Washer: none
Impression:
Acute on chronic HFpEF, largely right-sided
Morbid obesity
Hypertension
Type 2 diabetes
Bipolar disorder
PTSD
Obstructive sleep apnea-patient denies, nocturnal pulse ox abnormal hypercapnia with hypercarbia
Asthma
Current smoker-2 packs/day
R armpit boil s/p bedside I&D 07/02/24
Echo 07/01/2024: EF 55 to 60%, mild concentric LVH, enlarged RV, moderately dilated left atrium, trace mitral and tricuspid regurgitation, PAP 27 mmHg
Plan:
44-year-old man presenting with significant peripheral edema consistent with heart failure with preserved ejection fraction
Since admission, weight is down significantly (51 lbs since admission) and fluid balance remains negative with IV lasix 40 mg twice daily
Creatinine has remained stable - continue to monitor renal function and electrolytes closely
Will transition to PO Lasix 40 mg BID starting today
Continue dapagliflozin and spironolactone, these are new this admission
Smoking cessation
Tubigrip stockings
OP cardiac follow up arranged
Home 02 or CPAP?
BPs overall has improved
Maintain valsartan 160mg daily, Nebivolol 10mg daily, clonidine 0.3mg HS. OP amlodipine stopped given significant edema.
total time 52 min
-
Progress Note - Flatwork Washer
Subjective
Date of Service: July 06, 2024
he tells me he feels 'better than I have in a year'. No CP and no resting SOB
Objective
Labs:
07/06/24 06:21
07/06/24 06:21
Labs
Hgb 16.6 g/dL (13.0-18.0) 07/06/24 06:21
Hct 52.5 % (39.0-52.0) H 07/06/24 06:21
Plt Count 192 10^3/uL (130-400) 07/06/24 06:21
Sodium 141 mmol/L (135-145) 07/06/24 06:21
Potassium 3.6 mmol/L (3.5-5.1) 07/06/24 06:21
BUN 24 mg/dl (9-20) H 07/06/24 06:21
Creatinine 0.8 mg/dL (0.7-1.3) 07/06/24 06:21
Glucose 161 mg/dl (70-99) H 07/06/24 06:21
Vital Signs and I&O:
Vital Signs
Temp Pulse Resp BP Pulse Ox
98.1 F 74 20 143/81 93
07/06/24 11:13 07/06/24 11:13 07/06/24 11:13 07/06/24 11:13 07/06/24 11:13
Vital Signs
Temp Pulse Resp BP Pulse Ox
98.1 F 74 20 143/81 93
07/06/24 11:13 07/06/24 11:13 07/06/24 11:13 07/06/24 11:13 07/06/24 11:13
Intake & Output
07/04/24 07/05/24 07/06/24 07/07/24
06:59 06:59 06:59 06:59
Intake Total 1500 / 1500 1740 / 1740 1140 / 1140
Output Total 3150 / 3150 3075 / 3075 2115 / 2115
Balance -1650 / -1650 -1335 / -1335 -975 / -975
Physical Exam
Physical Exam
GEN: No distress, awake, alert, oriented x3. obese.
HEENT: supple, anicteric, mmm, eomi
LUNGS: CTA B/L, no wheezes/rales
CV: Reg, S1/S2, no S3 or S4, 1/6 AHSM, no rubs
ABD: soft, BS+, NT/ND
EXT: No cyanosis, clubbing. 2+ edema of RLE, 1+ of LLE
NEURO: Gross non-focal
SKIN: Warm, pink, dry. No rash
[2024-07-06 11:53] LABS: Glucose - Point of Care 173 mg/dl (70-99)
[2024-07-06] MEDS: NOVOLOG FLEXPEN-LOW RESISTANCE 1 UNITS SC (12:15)
[2024-07-06] MEDS: TYLENOL 650 MG PO (13:29)
--- NOTE | 2024-07-06 14:06 | W.PN.PUL3 ---
Today's Communication / Plan
-
Continue nocturnal BiPAP at the current setting upon discharge.
Avoid sedatives
Transition to oral diuretics
Continue Symbicort after discharge
Increase activity as able
Hopefully discharge planning
No additional recommendation from the pulmonary perspective
sign off
Assessment
-
44-year-old male with [id number] history of smoking ongoing, 60 pound weight gain over the past year, hypertension, bipolar disorder/PTSD you presents with lower extremity swelling, fatigue. Blood work suggest CO2 retention/sleep disorder. We
are asked to comment on pulmonary process
Impression:
Excessive daytime sleepiness, fatigue -patient reports that this is from chronic nightmares with poor sleep/insomnia
60 pound weight gain x 1 year with lower extremity/abdominal/scrotal edema due to suspected acute HFpEF exacerbation
Chronic hypercapnic respiratory failure with compensatory metabolic alkalosis - due to obesity hypoventilation syndrome with contraction alkalosis due to diuresis
Suspected asthma (via spirometry on 07/01/2024)
Insomnia with Hx of nightmares/night terrors --> improved with nocturnal O2/BiPAP
Conditions present prior to admission
PTSD/bipolar disorder
Hypertension
Diabetes
Ongoing smoking, 40+ pack year
Smokes 2 packs a day
Plan/recommendations
At this time, patient appears to be comfortable
Suspected untreated obesity hypoventilation syndrome:ABG consistent with chronic CO2 retention
Weight is trending lower with diuresis.
Previously it appeared that his PTSD has limited his ability to follow through with sleep evaluation in the past
Continue nocturnal BiPAP 1 08/01--> continue this while hospitalized with sleep and he will need to be discharged home with this as well
He has had multiple sleep studies in the past per the patient's report, and they have been reportedly negative for obstructive sleep apnea.
Nocturnal oximetry severely abnormal
Avoid sedatives
I suggested that we will need to repeat his sleep study as an outpatient
Overnight oximetry study performed on 06/30 - 07/01/2024 reportedly on 5 L/min showed SpO2 <89% for 2 hours and 59 minutes with harriet SpO2 of 89%
- Blood gas AM of 07/02/2024 showed stable chronic hypercapnia with pH 7.41, pCO2 59 --> no need to continue checking blood gases
-
Patient requires noninvasive volume ventilation due to OHS, BiLevel has been considered and ruled out, including BiLevel VAPS. Patient requires pressures greater than 30 cmH2O which is not supported by a BilLvel VAPS due to body habitus.
Traditional ventilator will exceed pressures greater than 30 cmH2O with a max pressure of 50 cmH2O. BiPAP therapy will be arranged before discharge.
-
Echo 07/01/2024 showed mildly enlarged RV with preserved RV systolic function and preserved PASP. LVEF 55 to 60% with normal diastolic function and no regional WMA seen. No significant valvular heart disease to account for clinical findings of ADHF
Unfortunately the echo may not truly be reflecting his pulmonary pressures, although he is continuing to clinically improve;
Pulmonary hypertension likely Due to untreated hypercapnic respiratory failure and volume overload at this point.
repeat echo in the outpatient setting
Continue diuresis per cardiology
Cardiology also following - recs appreciated
Smoking cessation strongly recommended.
This will also be an ongoing discussion
Eventual outpatient sleep evaluation/PFT
Bedside spirometry performed on 07/01/2024, showing a significant bronchodilator response with marked improvement in the small lung jang, suspicious for reactive airway disease versus asthma versus related to obesity.
- Continue Symbicort 160mcg - I did educate the patient saying that it may take 2-4 weeks for him to start feeling a benefit and he is okay with this plan; if no difference felt after 1 month then okay to stop
He had a boil in the right axilla region and underwent I&D on 07/01/2024 by general surgery; currently on Augmentin; defer Abx to primary team
Continue nicotine patch --> he wants me to lower the dose in an attempt to wean him. changed on 07/03
PT/OT --> no needs at this time
Disposition efforts - hopefully he can be discharged home in next 24hrs
He ultimately needs to get his supplemental O2 flow rate going through his BiPAP down to a dose that can be accommodated as an outpatient before he can be discharged. Ideally a BiPAP titration study would be needed as he may just need higher
pressures. On 07/03, he required 5 L/min through his BiPAP, and on 07/04 he only needed 3L/min through his BiPAP, hence I will leave his BiPAP pressures alone. Blood gas shows stable hypercapnia.
Pulmonary service will continue to follow along while he remains hospitalized. Outpatient follow-up with our office will also be arranged.
Data:
TTE 07/01/2024:
Normal left ventricular size and systolic function with mild concentric left
ventricular hypertrophy
Left ventricular ejection fraction estimated by Morillo's method 55 to 60%
Normal diastolic function
Mildly enlarged right ventricle with overall preserved RV systolic function
Moderately dilated left atrium
Trace mitral and tricuspid regurgitation
Estimated pulmonary artery pressure of 27 mmHg, assuming a right atrial
pressure of 3 mmHg.
No prior study available for comparison
Scrotal US 07/03/2024:
No findings to confirm testicular torsion bilaterally.
Small bilateral hydroceles, chronic on the right.
Some predominantly diffuse scrotal wall thickening bilaterally.
Total time spent today was 40 minutes for this encounter. Time includes reviewing laboratory test/imaging results, reviewing pertinent medical records, obtaining and reviewing medical history, performing an appropriate exam, ordering medications,
tests and procedures. Time also includes documentation of this encounter, coordinating patient care and communicating with other healthcare professionals. Total time does not include separately billed tests performed on this date of service.
Subjective Data
-
Date of Service:
Date of Service: July 06, 2024
Chief Complaint: Pulmonary Follow Up
Subjective:
No overnight events
Tolerating BiPAP
Review of Systems
Cardiopulmonary: Dyspnea, Dyspnea on Exertion, Cough (n) and Sputum Production (n)
GI: Abdominal Pain (n) and Nausea (n)
Objective Data
Data Reviewed
Vital Signs / I&O / Oxygen:
Vital Signs
Temp Pulse Resp BP Pulse Ox
98.1 F 74 20 143/81 93
07/06/24 11:13 07/06/24 11:13 07/06/24 11:13 07/06/24 11:13 07/06/24 11:13
Intake and Output
07/05/24 07/06/24 07/07/24
06:59 06:59 06:59
Intake Total 1740 / 1740 1140 / 1140
Output Total 3075 / 3075 2115 / 2115
Balance -1335 / -1335 -975 / -975
SaO2 93
Nasal Cannula flow liters per 2
minute
Physical Exam
General: Respiratory Distress (negative), Comfortable, Chills (negative), Sweats (negative) and Other (Morbidly obese)
HEENT: Normocephalic, Anicteric and Other (Thick neck)
Cardiovascular: S1-S2, Murmur (n), Peripheral Edema (+1 LE edema bilaterally) and Other (Distant cardiac sounds due to body habitus)
Respiratory: Clear, Wheeze (negative), Crackles (n), Rhonchi (negative), Non-Labored Respirations and Other (Diminished breath sounds bilaterally)
GI: Soft, Distended (Abdominal obesity + fluid retention), Non Tender and Normal Bowel Sounds
Neurology: AO x 3 and Tremors (negative)
Skin: Warm, Dry, Cyanosis (n), Jaundice (n), Rash (Chronic venous stasis changes in bilateral lower extremities) and Other (Excoriations seen on bilateral lower extremities)
Labs/Micro/Reports
Lab Data
07/06/24 06:21
07/06/24 06:21
Microbiology
07/01/24 17:27 Abscess Wound Culture - Final
No growth
07/01/24 17:27 Abscess Gram Stain - Final
07/01/24 17:27 Abscess Anaerobic Culture - Final
Candice moreno
--- NOTE | 2024-07-06 14:13 | W.PN.HOSP.TC ---
Today's Communication/Plan
-
switch to PO lasix
BiPAP being delivered Monday
Assessment / Plan
Assessment / Plan
Physical Exam
General: no acute distress. Appears comfortable at this time. Morbidly Obese
HEENT: Thick neck. No noted JVD. On nasal cannula supplementation
Respiratory: Clear to auscultation. No wheezes crackles rhonchi
Cardiac: S1/S2 and Regular Rhythm; No Murmur
GI: Non Tender, Normal Bowel Sounds Induration / mild erythema / abdominal wall edema in the lower abdomen
Musculoskeletal: lower ext pitting edema +2 b/l
Neuro: AO x 3
A/P: Patient is a 44y M with PMH significant for PTSD and obesity who presents to ED complaining of progressive LE edema and fatigue x several months.
Anasarca
Acute Hypoxic and Hypercapnic Respiratory Failure likely multifactorial d/t AHMET and Heart Failure, Asthma
- Renal function appears normal on initial labs.
- suspect d/t Heart Failure unspecified type
- TSH wnl
- ECHO EF 55 to 60%; mild concentric left and reticular hypertrophy, normal diastolic function ventricular hypertrophy; normal diastolic function; mildly enlarged right ventricle with overall preserved RV systolic function, moderately dilated to
left atrium
-IV diuresis - can switch to 40 mg PO lasix BID
- Pulmonary eval appreciated nocturnal oxygenation study noted significant desaturation overnight, ABG in AM noted hypercarbia and hypoxia, likely AHMET
-wean o2 as tolerated - off o2 today
--Continue SGLT2 inhibitor
-bedside spirometry indicative of Asthma- start Symbicort and prn nebs
outpt follow up for sleep study
- I/Os, daily weights
-BiPAP being set up - will be set up by Monday
Hypertension
- Adjust regimen as needed for adequate control.
- Hold amlodipine given significant edema.
-cont clonidine valsartan Lasix bystolic w/ holding parameters
DM-II
- Elevated glucose on initial labs.
- Discontinue pioglitazone which exacerbates volume overload.
- Hold other PO medications acutely.
- SSI coverage.
- A1C. appreciated 9.7
Bipolar Disorder
PTSD
- Continue current med regimen including Zonegran, clonidine
- Clonazepam changed to PRN.
- Follow for any changes in mood / new symptoms.
Morbid Obesity
- Weight gain of 60 lbs in the past year.
- Affects all aspects of care and evaluate for obesity related breathing issues as noted above.
- Encourage healthy diet and increased activity with goal of weight loss.
Boil right armpit area 1 inch diameter per nurse
- General Surgery Eval for bedside I&D
-s/p bedside I&D 07/02
-Cont abx x 5 days
#Suspected AHMET
-Continue BiPAP 08/01
-pulm following - will need outpatient
- follow-up in the pulmonary-sleep clinic
-BiPAP being set up and delivered Monday
Testicular bump
� Ultrasound with no evidence of severe issues
� No testicular torsion bilaterally
� Small bilateral hydroceles, chronic on the right
� Predominantly diffuse scrotal wall thickening bilaterally
#Asthma
-start symbicort
-duonebs
Tobacco Use
-nicotine supplementation
-smoking cessation counseled
PT/OT eval appreciated home with home services
DVT Prophylaxis: High dose Lovenox given BMI.
Code Status: Full
Anticipated Discharge: 24 - 48 hours
Subjective/Interval History
-
Date of Service: July 06, 2024
weaned off o2, can switch to po; no acute events overnight
Objective Data
-
Labs:
Laboratory Results
07/06/24
06:21
WBC 7.3
Hgb 16.6
Hct 52.5 H
Plt Count 192
Sodium 141
Potassium 3.6
Chloride 99
Carbon Dioxide 32 H
BUN 24 H
Creatinine 0.8
Glucose 161 H
Calcium 8.8
Vital Signs:
Vital Signs
Temp Pulse Resp BP Pulse Ox
98.1 F 74 20 143/81 93
07/06/24 11:13 07/06/24 11:13 07/06/24 11:13 07/06/24 11:13 07/06/24 11:13
I&O
07/05/24 07/06/24 07/07/24
06:59 06:59 06:59
Intake Total 1740 / 1740 1140 / 1140
Output Total 3075 / 3075 2115 / 2115
Balance -1335 / -1335 -975 / -975
Review of Systems
-
History Source: Patient
All other systems: Not reviewed unless documented
Data Reviewed
-
CT Scan: Image personally visualized and interpreted and Report Reviewed by me
Labs: Labs Reviewed by me
--- NOTE | 2024-07-06 16:21 | PTCARENOTE ---
Pt AAO x3, WATKINS well, ambulatory in room/jimenez, erick well, no c/o weakness/dizziness. VSS. Telemetry dc'd. On room air- pulse ox 96%, pt with (+) slight TORRES/tachypnea; denies SOB. Abd obese, soft, erick PO well. Re-inforced importance of 1440 ml fl
restriction; pt states compliance, but frequently asks for PO fluids. Voiding in BR without difficulty. 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 Resting in bed at present, no c/o. Will continue to monitor.
[2024-07-06] MEDS: LASIX 40 MG PO (16:24)
[2024-07-06 16:47] LABS: Glucose - Point of Care 137 mg/dl (70-99)
[2024-07-06] MEDS: NEURONTIN 100 MG PO (18:17)
[2024-07-06] MEDS: GEODON 80 MG PO (18:17)
[2024-07-06] MEDS: CATAPRES 0.3 MG PO (18:17)
[2024-07-06] MEDS: LIPITOR 10 MG PO (18:17)
[2024-07-06 21:33] LABS: Glucose - Point of Care 171 mg/dl (70-99)
[2024-07-07 03:55] VITALS: PULSE 2
[2024-07-07] MEDS: DUONEB 3 ML INH (05:22)
[2024-07-07 06:00] VITALS: BMI 53.0
[2024-07-07 07:01] LABS: Hematocrit 53.8 % (39.0-52.0); Hemoglobin 16.7 g/dL (13.0-18.0); Mean Corpuscular Hgb 27.5 pg (27.0-31.0); Mean Corpuscular Volume 88.5 fL (80.0-94.0); Mean Platelet Volume 11.4 fL (7.4-10.4); Platelet Count 208 10^3/uL (130-400); Red Blood Cell Count 6.08 10^6/uL (4.70-6.10); Red Cell Dist. Width 14.6 % (11.5-14.5); White Blood Cell Count 8.4 10^3/uL (4.8-10.8)
[2024-07-07 07:10] LABS: Glucose - Point of Care 164 mg/dl (70-99)
[2024-07-07 07:23] LABS: ALT (SGPT) 69 U/L (0-50); AST (SGOT) 61 U/L (17-59); Albumin 4.3 g/dl (3.5-5.0); Alkaline Phosphatase 53 U/L (38-126); Blood Urea Nitrogen 22 mg/dl (9-20); Carbon Dioxide 30 mmol/L (22-30); Chloride 101 mmol/L (98-107); Estimated Creatinine Clearance > 125 ml/min; Glucose 164 mg/dl (70-99); Potassium 3.9 mmol/L (3.5-5.1); Sodium 141 mmol/L (135-145); Total Bilirubin 1.1 mg/dl (0.2-1.3); Total Protein 7.2 g/dl (6.3-8.2); eGFR > 60.00
[2024-07-07] MEDS: SYMBICORT 160/4.5 MCG INHALER 2 PUFF INH ×2 (07:33→18:31)
[2024-07-07 07:40] VITALS: BP 148/76
[2024-07-07] MEDS: DIOVAN 160 MG PO (08:34)
[2024-07-07] MEDS: FARXIGA 10 MG PO (08:35)
[2024-07-07] MEDS: LOVENOX 40 MG SC ×2 (08:35→19:57)
[2024-07-07] MEDS: LASIX 40 MG PO ×2 (08:35→16:14)
[2024-07-07] MEDS: BYSTOLIC 10 MG PO (08:35)
[2024-07-07] MEDS: ALDACTONE 25 MG PO (08:35)
[2024-07-07] MEDS: AUGMENTIN 875 MG/125 MG 1 TABLET PO ×2 (08:35→19:57)
[2024-07-07] MEDS: NICODERM TRANSDERMAL 14 MG TRANSDERM (08:36)
[2024-07-07] MEDS: NOVOLOG FLEXPEN-LOW RESISTANCE 1 UNITS SC ×2 (08:36→11:35)
[2024-07-07] MEDS: DESENEX/MITRAZOL/ZEASORB 1 APPLIC TOPICAL ×2 (08:45→20:03)
--- NOTE | 2024-07-07 09:33 | W.PN.CARDCBS ---
Today's Communication / Plan
-
Would discharge home on Lasix 40 mg twice daily.
Impression / Plan
-
PCP:Regis Sharp
Backpackers Manager: none
Impression:
Acute on chronic HFpEF, largely right-sided
Morbid obesity
Hypertension
Type 2 diabetes
Bipolar disorder
PTSD
Obstructive sleep apnea-patient denies, nocturnal pulse ox abnormal hypercapnia with hypercarbia
Asthma
Current smoker-2 packs/day
R armpit boil s/p bedside I&D 07/02/24
Echo 07/01/2024: EF 55 to 60%, mild concentric LVH, enlarged RV, moderately dilated left atrium, trace mitral and tricuspid regurgitation, PAP 27 mmHg
Plan:
44-year-old man presenting with significant peripheral edema consistent with heart failure with preserved ejection fraction
Since admission, weight is down significantly (51 lbs since admission) and fluid balance remains negative with IV lasix 40 mg twice daily
Creatinine has remained stable - continue to monitor renal function and electrolytes closely
Transitioned to PO Lasix 40 mg BID 07/06/24
Wt down 2 lbs overnight, fluid balance not measured overnight, renal function stable
Continue dapagliflozin and spironolactone, these are new this admission
Smoking cessation
Tubigrip stockings
OP cardiac follow up arranged
Home BiPap is being arranged
BPs overall has improved
Maintain valsartan 160mg daily, Nebivolol 10mg daily, clonidine 0.3mg HS. OP amlodipine stopped given significant edema.
Would discharge charge home on Lasix 40 mg p.o. twice daily and what ever electrolyte supplementation he may require to keep K4-5 and Mg 2-3 otherwise no new recommendations from a cardiology standpoint. Outpatient cardiology follow-up has already
been arranged. Will sign off. Please call us back if needed
total time 50 min
-
Progress Note - Backpackers Manager
Subjective
Date of Service: July 07, 2024
Feels less SOB, no CP
Objective
Labs:
07/07/24 06:39
07/07/24 06:39
Labs
Hgb 16.7 g/dL (13.0-18.0) 07/07/24 06:39
Hct 53.8 % (39.0-52.0) H 07/07/24 06:39
Plt Count 208 10^3/uL (130-400) 07/07/24 06:39
Sodium 141 mmol/L (135-145) 07/07/24 06:39
Potassium 3.9 mmol/L (3.5-5.1) 07/07/24 06:39
BUN 22 mg/dl (9-20) H 07/07/24 06:39
Creatinine 0.8 mg/dL (0.7-1.3) 07/07/24 06:39
Glucose 164 mg/dl (70-99) H 07/07/24 06:39
Vital Signs and I&O:
Vital Signs
Temp Pulse Resp BP Pulse Ox
98.0 F 71 20 148/76 93
07/07/24 07:40 07/07/24 07:40 07/07/24 07:40 07/07/24 07:40 07/07/24 07:40
Vital Signs
Temp Pulse Resp BP Pulse Ox
98.0 F 71 20 148/76 93
07/07/24 07:40 07/07/24 07:40 07/07/24 07:40 07/07/24 07:40 07/07/24 07:40
Intake & Output
07/05/24 07/06/24 07/07/24 07/08/24
06:59 06:59 06:59 06:59
Intake Total 1740 / 1740 1140 / 1140 1140 / 1140
Output Total 3075 / 3075 2115 / 2115
Balance -1335 / -1335 -975 / -975 1140 / 1140
Physical Exam
Physical Exam
GEN: No distress, awake, alert, oriented x3. obese.
HEENT: supple, anicteric, mmm, eomi
LUNGS: CTA B/L, no wheezes/rales
CV: Reg, S1/S2, no S3 or S4, 1/6 AHSM, no rubs
ABD: soft, BS+, NT/ND
EXT: No cyanosis, clubbing. 2+ edema of RLE, 1+ of LLE
NEURO: Gross non-focal
[2024-07-07 11:32] LABS: Glucose - Point of Care 174 mg/dl (70-99)
--- NOTE | 2024-07-07 13:54 | W.PN.HOSP.TC ---
Today's Communication/Plan
-
Monitor for additional day due to symptoms of shortness of breath this morning, going back on oxygen
Ambulatory pulse ox prior to discharge
Switch to p.o. Lasix
Anticipate discharge tomorrow
BiPAP delivery scheduled for tomorrow-Monday, 07/07/2024
Assessment / Plan
Assessment / Plan
Physical Exam
General: no acute distress. Appears comfortable at this time. Morbidly Obese
HEENT: Thick neck. No noted JVD. On nasal cannula supplementation
Respiratory: Clear to auscultation. No wheezes crackles rhonchi
Cardiac: S1/S2 and Regular Rhythm; No Murmur
GI: Non Tender, Normal Bowel Sounds Induration / mild erythema / abdominal wall edema in the lower abdomen
Musculoskeletal: lower ext pitting edema +2 b/l
Neuro: AO x 3
A/P: Patient is a 44y M with PMH significant for PTSD and obesity who presents to ED complaining of progressive LE edema and fatigue x several months.
Anasarca
Acute Hypoxic and Hypercapnic Respiratory Failure likely multifactorial d/t AHMET and Heart Failure, Asthma
- Renal function appears normal on initial labs.
- suspect d/t Heart Failure unspecified type
- TSH wnl
- ECHO EF 55 to 60%; mild concentric left and reticular hypertrophy, normal diastolic function ventricular hypertrophy; normal diastolic function; mildly enlarged right ventricle with overall preserved RV systolic function, moderately dilated to
left atrium
-IV diuresis - can switch to 40 mg PO lasix BID
- Pulmonary eval appreciated nocturnal oxygenation study noted significant desaturation overnight, ABG in AM noted hypercarbia and hypoxia, likely AHMET
-wean o2 as tolerated - off o2 today
--Continue SGLT2 inhibitor
-bedside spirometry indicative of Asthma- start Symbicort and prn nebs
outpt follow up for sleep study
- I/Os, daily weights
-BiPAP being set up - will be set up by Monday
Hypertension
- Adjust regimen as needed for adequate control.
- Hold amlodipine given significant edema.
-cont clonidine valsartan Lasix bystolic w/ holding parameters
DM-II
- Elevated glucose on initial labs.
- Discontinue pioglitazone which exacerbates volume overload.
- Hold other PO medications acutely.
- SSI coverage.
- A1C. appreciated 9.7
Bipolar Disorder
PTSD
- Continue current med regimen including Zonegran, clonidine
- Clonazepam changed to PRN.
- Follow for any changes in mood / new symptoms.
Morbid Obesity
- Weight gain of 60 lbs in the past year.
- Affects all aspects of care and evaluate for obesity related breathing issues as noted above.
- Encourage healthy diet and increased activity with goal of weight loss.
Transaminitis
� Mild, possibly secondary to antibiotics
� Continue to monitor
� No abdominal symptoms, tenderness
Boil right armpit area 1 inch diameter per nurse
- General Surgery Eval for bedside I&D
-s/p bedside I&D 07/02
-Cont abx x 5 days
#Suspected AHMET
-Continue BiPAP 08/01
-pulm following - will need outpatient
- follow-up in the pulmonary-sleep clinic
-BiPAP being set up and delivered Monday
Testicular bump
� Ultrasound with no evidence of severe issues
� No testicular torsion bilaterally
� Small bilateral hydroceles, chronic on the right
� Predominantly diffuse scrotal wall thickening bilaterally
#Asthma
-start symbicort
-duonebs
Tobacco Use
-nicotine supplementation
-smoking cessation counseled
PT/OT eval appreciated home with home services
DVT Prophylaxis: High dose Lovenox given BMI.
Code Status: Full
Anticipated Discharge: Within 24 hours
Subjective/Interval History
-
Date of Service: July 07, 2024
Stow short of breath this morning
Objective Data
-
Labs:
Laboratory Results
07/07/24
06:39
WBC 8.4
Hgb 16.7
Hct 53.8 H
Plt Count 208
Sodium 141
Potassium 3.9
Chloride 101
Carbon Dioxide 30
BUN 22 H
Creatinine 0.8
Glucose 164 H
Calcium 9.0
Total Bilirubin 1.1
AST 61 H
ALT 69 H
Alkaline Phosphatase 53
Vital Signs:
Vital Signs
Temp Pulse Resp BP Pulse Ox
98.0 F 71 20 148/76 93
07/07/24 07:40 07/07/24 07:40 07/07/24 07:40 07/07/24 07:40 07/07/24 08:30
I&O
07/06/24 07/07/24 07/08/24
06:59 06:59 06:59
Intake Total 1140 / 1140 1140 / 1140
Output Total 5 / 2114
Balance -975 / -975 1140 / 1140
Review of Systems
-
History Source: Patient
All other systems: Not reviewed unless documented
Data Reviewed
-
CT Scan: Image personally visualized and interpreted and Report Reviewed by me
Labs: Labs Reviewed by me
[2024-07-07 15:37] VITALS: BP 126/70
[2024-07-07] MEDS: KLONOPIN 0.5 MG PO (16:14)
[2024-07-07] MEDS: TYLENOL 650 MG PO (16:14)
[2024-07-07 17:08] LABS: Glucose - Point of Care 142 mg/dl (70-99)
[2024-07-07] MEDS: NOVOLOG FLEXPEN-LOW RESISTANCE SC (17:22)
[2024-07-07] MEDS: GEODON 80 MG PO (18:07)
[2024-07-07] MEDS: NEURONTIN 100 MG PO (18:07)
[2024-07-07] MEDS: LIPITOR 10 MG PO (18:07)
[2024-07-07] MEDS: CATAPRES 0.3 MG PO (18:07)
[2024-07-07 21:16] LABS: Glucose - Point of Care 177 mg/dl (70-99)
[2024-07-07 22:39] VITALS: PULSE 2
[2024-07-07 23:49] VITALS: BP 124/62
[2024-07-08 03:32] VITALS: PULSE 2
--- NOTE | 2024-07-08 05:24 | W.PN.HOSP.TC ---
Today's Communication/Plan
-
abx completed
resume home metformin
Home Oxygen Assessment
cont glycemic control
cont to encourage ambulation
Plan for discharge tomorrow home with BIPAP set up
Assessment / Plan
Assessment / Plan
Physical Exam
General: no acute distress. Appears comfortable at this time. Morbidly Obese
HEENT: Thick neck. No noted JVD. stable respiratory status on room air
Respiratory: Clear to auscultation. No wheezes crackles rhonchi
Cardiac: S1/S2 and Regular Rhythm; No Murmur
GI: Non Tender, Normal Bowel Sounds Induration / mild erythema / abdominal wall edema in the lower abdomen
Musculoskeletal: lower ext pitting edema +2 b/l
Neuro: AO x 3
A/P: Patient is a 44M with PMH significant for PTSD and obesity who presents to ED complaining of progressive LE edema and fatigue x several months.
Anasarca
Acute Hypoxic and Hypercapnic Respiratory Failure likely multifactorial d/t AHMET and Heart Failure, Asthma
- Renal function appears normal on initial labs.
- suspect d/t Heart Failure unspecified type
- TSH wnl
- ECHO EF 55 to 60%; mild concentric left and reticular hypertrophy, normal diastolic function ventricular hypertrophy; normal diastolic function; mildly enlarged right ventricle with overall preserved RV systolic function, moderately dilated to
left atrium
-IV diuresis switched to 40 mg PO lasix BID
- Pulmonary eval appreciated nocturnal oxygenation study noted significant desaturation overnight, ABG in AM noted hypercarbia and hypoxia, likely AHMET
-weaned off o2, stable respiratory status on room air
--Continue Farxiga
-bedside spirometry indicative of Asthma- cont Symbicort new medication
outpt follow up for sleep study
- I/Os, daily weights
-BiPAP set up today Monday.
Hypertension
- Adjust regimen as needed for adequate control.
- Hold amlodipine given significant edema.
-cont clonidine valsartan Lasix bystolic w/ holding parameters
DM-II
- Elevated glucose on initial labs.
- Discontinue pioglitazone which exacerbates volume overload.
- Resume metformin, Added Farxiga as above, cont hold home glimepiride for now
- SSI coverage.
- A1C. appreciated 9.7
Bipolar Disorder
PTSD
- Continue current med regimen including Zonegran, clonidine
- Clonazepam changed to PRN.
- Follow for any changes in mood / new symptoms.
Morbid Obesity
- Weight gain of 60 lbs in the past year.
- Affects all aspects of care and evaluate for obesity related breathing issues as noted above.
- Encourage healthy diet and increased activity with goal of weight loss.
Transaminitis
� Mild, possibly secondary to antibiotics
� Continue to monitor
� No abdominal symptoms, tenderness
-resolving
Boil right armpit area 1 inch diameter per nurse
- General Surgery Eval for bedside I&D
-s/p bedside I&D 07/02
-completed abx x 7 days
#Suspected AHMET
-Continue BiPAP 08/01
-pulm following - will need outpatient
- follow-up in the pulmonary-sleep clinic
-BiPAP being set up prior to discharge
Testicular bump
� Ultrasound with no evidence of severe issues
� No testicular torsion bilaterally
� Small bilateral hydroceles, chronic on the right
� Predominantly diffuse scrotal wall thickening bilaterally
#Asthma
-cont symbicort
-duonebs
Tobacco Use
-nicotine supplementation
-smoking cessation counseled
PT/OT eval appreciated initially recommended home with home services, ambulatory status since improved
DVT Prophylaxis: High dose Lovenox given BMI.
Code Status: Full
I spent a total of 50 minutes with the patient or on the floor. More than 50% of this time involved counseling and coordination of care.
Anticipated Discharge: Within 24 hours
Subjective/Interval History
-
Date of Service: July 08, 2024
Seen and examined at bedside in no acute distress sitting up comfortably on bed. Stable respiratory status on room air. Patient ambulating without issues. Reports overall feeling well. Eager to go home.
Objective Data
-
Labs:
Laboratory Results
07/08/24
06:00
WBC Pending
Hgb Pending
Hct Pending
Plt Count Pending
Sodium Pending
Potassium Pending
Chloride Pending
Carbon Dioxide Pending
BUN Pending
Creatinine Pending
Glucose Pending
Calcium Pending
Total Bilirubin Pending
AST Pending
ALT Pending
Alkaline Phosphatase Pending
Vital Signs:
Vital Signs
Temp Pulse Resp BP Pulse Ox
98.1 F 50 18 124/62 98
07/07/24 23:49 07/07/24 23:49 07/07/24 23:49 07/07/24 23:49 07/07/24 23:49
I&O
07/06/24 07/07/24 07/08/24
06:59 06:59 06:59
Intake Total 1140 / 1140 1140 / 1140 300 / 300
Output Total 2114 / 2114
Balance -975 / -975 1140 / 1140 300 / 300
[2024-07-08 06:00] VITALS: BMI 53.0
[2024-07-08 07:30] VITALS: BP 135/74
[2024-07-08 07:30] LABS: Glucose - Point of Care 164 mg/dl (70-99)
[2024-07-08] MEDS: SYMBICORT 160/4.5 MCG INHALER 2 PUFF INH ×2 (07:46→19:32)
[2024-07-08 08:03] LABS: Hematocrit 56.1 % (39.0-52.0); Hemoglobin 17.6 g/dL (13.0-18.0); Mean Corp Hgb Conc. 31.4 g/dL (33.0-37.0); Mean Corpuscular Hgb 27.6 pg (27.0-31.0); Mean Corpuscular Volume 88.1 fL (80.0-94.0); Mean Platelet Volume 10.9 fL (7.4-10.4); Platelet Count 197 10^3/uL (130-400); Red Blood Cell Count 6.37 10^6/uL (4.70-6.10); Red Cell Dist. Width 14.9 % (11.5-14.5); White Blood Cell Count 7.3 10^3/uL (4.8-10.8)
[2024-07-08 08:38] LABS: ALT (SGPT) 66 U/L (0-50); AST (SGOT) 54 U/L (17-59); Albumin 4.3 g/dl (3.5-5.0); Alkaline Phosphatase 60 U/L (38-126); Blood Urea Nitrogen 20 mg/dl (9-20); Calcium 9.1 mg/dl (8.4-10.2); Carbon Dioxide 28 mmol/L (22-30); Chloride 102 mmol/L (98-107); Estimated Creatinine Clearance > 125 ml/min; Glucose 162 mg/dl (70-99); Potassium 4.2 mmol/L (3.5-5.1); Sodium 143 mmol/L (135-145); Total Protein 7.3 g/dl (6.3-8.2); eGFR > 60.00
[2024-07-08] MEDS: NOVOLOG FLEXPEN-LOW RESISTANCE 1 UNITS SC (09:04)
[2024-07-08] MEDS: ALDACTONE 25 MG PO (09:05)
[2024-07-08] MEDS: FARXIGA 10 MG PO (09:05)
[2024-07-08] MEDS: BYSTOLIC 10 MG PO (09:06)
[2024-07-08] MEDS: DIOVAN 160 MG PO (09:06)
[2024-07-08] MEDS: AUGMENTIN 875 MG/125 MG 1 TABLET PO (09:06)
[2024-07-08] MEDS: NICODERM TRANSDERMAL 14 MG TRANSDERM (09:07)
[2024-07-08] MEDS: LOVENOX 40 MG SC ×2 (09:07→20:11)
[2024-07-08] MEDS: LASIX 40 MG PO ×2 (09:07→16:26)
[2024-07-08] MEDS: DESENEX/MITRAZOL/ZEASORB 1 APPLIC TOPICAL ×2 (09:08→20:13)
--- NOTE | 2024-07-08 09:47 | W.HF.CON ---
Heart Failure
- LV Function
Left ventricular function study result: LV Ejection fraction >/= 50%
Ejection Fraction Percentage: 55-60
- ARNI
Patient already on ARNI: No
Heart Failure ARNI Not Indicated: LV Ejection Fraction >/= 40%
- ACEI/ARB
Patient already on ACEI/ARB: Yes
- Beta Christina
Patient already on Evidence Based Beta Christina: No
Heart Failure Evidence Based Beta Christina Not Indicated: LV Ejection Fraction > 40%
- Mineralocorticord Receptor Antagonist
Patient already on MRA: Yes
- SGLT-2 Inhibitor
Patient already on SGLT-2 Inhibitor: Yes
- NYHA CHF Classification
NYHA CHF Classification Level: Class III - Symptoms w/ min exertion, interferes w/ nml daily activity
- ACC/AHA Stage
ACC/AHA Stage: Stage C: Symptomatic Heart Failure
[2024-07-08 11:41] LABS: Glucose - Point of Care 137 mg/dl (70-99)
[2024-07-08] MEDS: NOVOLOG FLEXPEN-LOW RESISTANCE SC ×2 (11:43→16:35)
--- NOTE | 2024-07-08 13:12 | CM ---
Addendum entered by Shamar Delgado 07/08/24 14:25:
O2 assessment completed, no O2 needs
Updated Savanna/Jh. Faxed BiPaP settings
Per [facility], she will make outreach to pt. Reiterated pt should be d/c and home before 2 pm
Per hospitalist, plan for d/c tomorrow morning
Original Note:
CM faxed 07/06 pulmonary note to Sav[facility]/Jh. Per [facility], biPaP has been approved and is still awaiting completion of O2 assessment
[facility] advised that pt has to be home by 2pm to receive biPaP on the day of d/c.
Per hospitalist, d/c postpone to tomorrow morning
Per RT, will complete home O2 assessment today
Updated [facility] on d/c tomorrow morning
Will fax RT note once assessment is completed for home O2
Plan: Home w/ biPaP and O2
[2024-07-08 15:42] VITALS: BP 153/88
--- NOTE | 2024-07-08 15:46 | PTCARENOTE ---
Pt AAO x3, WATKINS well, ambulatory in room/to BR; erick well. VSS. Maintained on room air- pulse ox 96%, pt with occ slight tachypnea/TORRES; denies SOB. Abd obese, soft, erick PO well. Voiding clear yellow urine in urinal; re-inforced need to monitor
output/follow 1440 ml fl restriction. Afebrile; warm/dry; Tubigrips intact to both lower legs. Pt resting in bed at present, no c/o. Pt anticipating DC on 07/09. Will continue to monitor.
[2024-07-08 16:34] LABS: Glucose - Point of Care 141 mg/dl (70-99)
[2024-07-08] MEDS: LIPITOR 10 MG PO (18:30)
[2024-07-08] MEDS: GEODON 80 MG PO (18:30)
[2024-07-08] MEDS: CATAPRES 0.3 MG PO (18:31)
[2024-07-08] MEDS: NEURONTIN 100 MG PO (18:31)
[2024-07-08] MEDS: GLUCOPHAGE XR EXTENDED RELEASE 1000 MG PO (18:31)
[2024-07-08 21:05] VITALS: PULSE 2; PULSE 67
[2024-07-08 21:09] LABS: Glucose - Point of Care 185 mg/dl (70-99)
[2024-07-08 23:55] VITALS: BP 116/56
[2024-07-09 03:30] VITALS: PULSE 2
[2024-07-09 06:00] VITALS: BMI 52.6
[2024-07-09 07:07] LABS: Glucose - Point of Care 164 mg/dl (70-99)
[2024-07-09 07:35] VITALS: BP 123/76
--- NOTE | 2024-07-09 07:54 | W.PN.HOSP.TC ---
Today's Communication/Plan
-
Discharge today pending home BIPAP set up
Assessment / Plan
Assessment / Plan
Physical Exam
General: no acute distress. Appears comfortable at this time. Morbidly Obese
HEENT: Thick neck. No noted JVD. stable respiratory status on room air
Respiratory: Clear to auscultation. No wheezes crackles rhonchi
Cardiac: S1/S2 and Regular Rhythm; No Murmur
GI: soft, Non Tender, Normal Bowel Sounds,
Musculoskeletal: compression stockings in place lower ext's b/l
Neuro: AO x 3
A/P: Patient is a 44M with PMH significant for PTSD and obesity who presents to ED complaining of progressive LE edema and fatigue x several months.
Anasarca
Acute Hypoxic and Hypercapnic Respiratory Failure likely multifactorial d/t AHMET and Heart Failure, Asthma
- Renal function appears normal on initial labs.
- suspect d/t Heart Failure unspecified type
- TSH wnl
- ECHO EF 55 to 60%; mild concentric left and reticular hypertrophy, normal diastolic function ventricular hypertrophy; normal diastolic function; mildly enlarged right ventricle with overall preserved RV systolic function, moderately dilated to
left atrium
-IV diuresis switched to 40 mg PO lasix BID
- Pulmonary eval appreciated nocturnal oxygenation study noted significant desaturation overnight, ABG in AM noted hypercarbia and hypoxia, likely AHMET
-weaned off o2, stable respiratory status on room air
--Continue Farxiga
-bedside spirometry indicative of Asthma- cont Symbicort new medication
outpt follow up for sleep study
- I/Os, daily weights
-BiPAP set up on discharge
Hypertension
- Adjust regimen as needed for adequate control.
- Hold amlodipine given significant edema.
-cont clonidine valsartan Lasix bystolic w/ holding parameters
DM-II
- Elevated glucose on initial labs.
- Discontinue pioglitazone which exacerbates volume overload.
- Resume metformin, Added Farxiga as above, cont hold home glimepiride for now
- SSI coverage.
- A1C. appreciated 9.7
Bipolar Disorder
PTSD
- Continue current med regimen including Zonegran, clonidine
- Clonazepam changed to PRN.
- Follow for any changes in mood / new symptoms.
Morbid Obesity
- Weight gain of 60 lbs in the past year.
- Affects all aspects of care and evaluate for obesity related breathing issues as noted above.
- Encourage healthy diet and increased activity with goal of weight loss.
Transaminitis
� Mild, possibly secondary to antibiotics
� Continue to monitor
� No abdominal symptoms, tenderness
-resolving
Boil right armpit area 1 inch diameter per nurse
- General Surgery Eval for bedside I&D
-s/p bedside I&D 07/02
-completed abx x 7 days
#Suspected AHMET
-Continue BiPAP 08/01
-pulm following - will need outpatient
- follow-up in the pulmonary-sleep clinic
-BiPAP being set up prior to discharge
Testicular bump
� Ultrasound with no evidence of severe issues
� No testicular torsion bilaterally
� Small bilateral hydroceles, chronic on the right
� Predominantly diffuse scrotal wall thickening bilaterally
-since resolved following diuresis
#Asthma
-cont symbicort
-duonebs
Tobacco Use
-nicotine supplementation
-smoking cessation counseled
PT/OT eval appreciated initially recommended home with home services, ambulatory status since improved
DVT Prophylaxis: High dose Lovenox given BMI.
Code Status: Full
Total Time Preparing Discharge __50____ minutes including examination of the patient, summary of the hospital stay, instructions for continuing care to all relevant caregivers; and preparation of discharge records, prescriptions, and referral forms
if necessary.
Anticipated Discharge: Today
Subjective/Interval History
-
Date of Service: July 09, 2024
No acute distress. Patient reports feeling well. Eager to go home.
Objective Data
-
Vital Signs:
Vital Signs
Temp Pulse Resp BP Pulse Ox
98.3 F 65 22 116/56 93
07/08/24 23:55 07/08/24 23:55 07/08/24 23:55 07/08/24 23:55 07/08/24 23:55
I&O
07/08/24 07/09/24 07/10/24
06:59 06:59 06:59
Intake Total 780 / 780 1400 / 1400
Output Total 1200 / 1200
Balance 780 / 780 200 / 200
[2024-07-09] MEDS: SYMBICORT 160/4.5 MCG INHALER 2 PUFF INH (08:06)
[2024-07-09] MEDS: ALDACTONE 25 MG PO (08:48)
[2024-07-09] MEDS: NOVOLOG FLEXPEN-LOW RESISTANCE 1 UNITS SC (08:48)
[2024-07-09] MEDS: BYSTOLIC 10 MG PO (08:48)
[2024-07-09] MEDS: FARXIGA 10 MG PO (08:49)
[2024-07-09] MEDS: DIOVAN 160 MG PO (08:49)
[2024-07-09] MEDS: LASIX 40 MG PO (08:50)
[2024-07-09] MEDS: LOVENOX 40 MG SC (08:50)
[2024-07-09] MEDS: DESENEX/MITRAZOL/ZEASORB 1 APPLIC TOPICAL (08:50)
[2024-07-09] MEDS: NICODERM TRANSDERMAL 14 MG TRANSDERM (08:55)
--- NOTE | 2024-07-09 08:58 | W.DCSUMMARY ---
Discharge Summary
Discharge Data
Date of Admission: 06/29/24
Date of Discharge: 07/09/24
-
Pending Results: No
Discharge Plan
-
Patient Disposition: Home with Home Care
Discharge Diagnosis/Procedures: Anasarca
Acute Hypoxic and Hypercapnic Respiratory Failure likely multifactorial due to obstructive sleep apnea Heart Failure preserved ejection fraction and Asthma
Hypertension
Diabetes
Bipolar Disorder
PTSD
Morbid Obesity
Mild Transaminitis
Right Axillary Abscess status post incision and Drainage
Obstructive Sleep Apnea
Asthma
Tobacco Use
Scrotal Swelling
Condition: Fair
Diet: Diabetic, Carb Controlled and Restrict fluids to 64 oz
Activity: As tolerated
Driving Restrictions: As prior to admission
Bathing Restrictions: None
Blood Work: Repeat CMP with your primary care provider in 1 week of discharge
Specialty Instructions: Weigh Daily- Call MD for wt gain/loss 3 lbs overnight/5 lbs in 1 week
Activity Restrictions/Additional Instructions:
Please keep your appointment with Cardiology and follow up with your primary care provider in 1 week of discharge. Follow up with Surgeon, Pulmonology, and Urology in 2-4 weeks of discharge.
Symbicort has been prescribed for treatment asthma.
Clonazepam has be reduced to 0.5 mg twice a day as needed for anxiety.
Farxiga has been prescribed for treatment heart failure and diabetes.
Lasix has been increased to 40 mg twice a day for better treatment heart failure.
Janumet has been switched to Metformin 1000 mg only given addition of Farxiga as above.
Nicotine patches have been prescribed to help with smoking cessation. These are available over the counter.
Aldactone has been added for better control heart failure and hypertension.
Subsequently your combination blood pressure medication has be converted to Valsartan 160 mg daily. Hydrochlorothiazide has been discontinued as blood pressure has been well controlled with aforementioned blood pressure medications and
hydrochlorothiazide can contribute to metabolic syndrome and obesity. Please follow up with primary care provider and/or other healthcare provider involved in your care before considering to resume.
As sugars have been well Metformin and Farxiga, glimepiride has been discontinued, please follow up with primary care provider or other healthcare provider involved in your care before considering to resume.
Pioglitazone has been discontinued as medication can worsen heart failure and contribute to heart failure exacerbation.
Please take medications as prescribed/recommended and follow up with primary care provider and/or other healthcare provider involved in your care for refills and/or further adjustment to your medication regimen as necessary.
Instructions: *[facility] Heart Failure Instructions
Referrals:
Jennyfer Rodriguez PA-C [Specified Professional Personl] - 07/12/24 3:40 pm (You have a cardiology follow-up at the [place] office. Please call with questions)
Jim Sharp Jr., MD [Family Provider] - in one week
Joy Calloway DO [Active] - in two to four weeks
(Sleep ETIOLOGIST in 2-4 weeks with [facility] or [facility] thereafter as needed for severe sleep disorder
)
Shayne Koo MD [Active] - in two to four weeks
Darryn Ascencio MD [Active] - in two to four weeks
Prescriptions:
New
spironolactone 25 mg Tablet
25 mg PO DAILY 30 Days Qty: 30 0RF
clonazepam 0.5 mg tablet
0.5 mg PO BID PRN (Reason: anxiety) Qty: 14 0RF
valsartan 160 mg tablet
160 mg PO DAILY 30 Days Qty: 30 0RF
dapagliflozin propanediol 10 mg Tablet
10 mg PO DAILY 30 Days Qty: 30 0RF
furosemide 40 mg Tablet
40 mg PO BID AT 0800,1600 30 Days Qty: 60 0RF
nicotine 14 mg/24 hr Patch 24 Hour
14 mg transdermal DAILY 7 Days Qty: 7 0RF
budesonide-formoterol [Symbicort] 160-4.5 mcg/actuation HFA aerosol inhaler
2 puff inhalation BID Qty: 10.2 0RF
metformin 500 mg Tablet Extended Release 24 Hr
1,000 mg PO DAILY@1900 30 Days Qty: 60 0RF
Continued
clonidine HCl 0.3 MG tablet
0.3 mg PO DAILY@1900
onvkgad-rctsbwuso-imeq 1 EACH tablet
1 ea PO DAILY@1900
ziprasidone HCl 80 mg Capsule
80 mg PO BID
Patient Comments:
06/28/24: Patient states he usually takes his BID medications once a day, this medication is prescribed BID.
atorvastatin 10 mg Tablet
10 mg PO DAILY@1900
gabapentin 100 mg Capsule
100 mg PO DAILY@1900
nebivolol 10 mg Tablet
10 mg PO DAILY@1900
Discontinued
clonazepam 1 MG tablet
1 mg PO DAILY@1900
Patient Comments:
06/28/24: Patient states he usually takes his BID medications once a day, this medication is prescribed BID.
ciprofloxacin HCl [Cipro] 500 mg Tablet
500 mg PO DAILY@1900
Patient Comments:
06/28/24: Patient states he usually takes his BID medications once a day, this medication is prescribed BID.
amlodipine 10 mg Tablet
10 mg PO DAILY@1900
furosemide 20 mg Tablet
20 mg PO DAILY@1900
valsartan-hydrochlorothiazide 320-25 mg Tablet
1 tab PO DAILY@1900
Janumet XR 100-1,000 mg Tablet, Er Multiphase 24 Hr
1 tab PO DAILY@1900
glimepiride 4 mg Tablet
4 mg PO DAILY@1900
pioglitazone 30 mg Tablet
30 mg PO DAILY@1900
Patient Comments:
06/28/24: Patient is unsure if he takes this medication, is prescribed to be taken with glimepiride.
Discharge Orders:
Discharge Patient (As Directed); Ordered 07/09/24
Ordered By: Edwar Shaw
Discharge Date and Time
Print Language: POLISH
--- NOTE | 2024-07-09 10:11 | CM ---
Addendum entered by Shamar Delgado 07/09/24 10:34:
IMM reviewed, pt given copy. Copy placed in chart
Original Note:
Per [facility]/Jh, yesterday pt declines paying any out of pocket costs even with option of payment plan assistance
Per hospitalist, pt wants to explore other medical suppliers as he spoke w/ his insurance who advised his medical supplies are 100% covered.
CM spoke w/ pt, pt provided [employer] information to explore as he reiterated he spoke w/ [employer] who confirmed what primary insurance doesn't cover, his secondary should, making his biPaP 100% covered.
CM spoke w/ Craig[facility] [employer]. Per Craig, both pt's insurances have to be verified first to see if equipment will be 100% covered. In addition, pt would have to see BiPaP specialist first to confirm BiPaP needs and set up. Per Craig,
scheduling w/ BiPaP specialist was not guaranteed to happen same day as d/c.
CM spoke w/ pt re [employer]' process and the need to meet w/ specialist first which couldn't be determined when.
Pt called [employer] to inform of secondary insurance.
Per Savanna/hJ, verification of both primary and secondary insurances have been verified showing that BiPaP will be covered 100%. Per Savanna, they did not have pt's secondary insurance listed initially.
CM updated pt and hospitalist on plan to d/c today w/ [employer] delivering BiPaP
Per pt, he will drive himself home at d/c
Plan: Home w/ BiPaP thru [employer]
[2024-07-09 11:26] VITALS: BP 131/78
== END 2024-07-09 12:25 | disposition home or self-care (01) | DRG 291 ==
LOC: 4 EAST ACU 01:57
PROVIDERS: Emergency Medicine; Internal Medicine; Internal Medicine Critical Care Medicine; Nurse Practitioner; ADMITTING PHYSICIAN Hospitalist; ATTENDING PHYSICIAN Internal Medicine; CONSULT PHYSICIAN Internal Medicine Critical Care Medicine; CONSULT PHYSICIAN Surgery; EMERGENCY PHYSICIAN Emergency Medicine; FAMILY PHYSICIAN Family Medicine; OTHER PHYSICIAN Internal Medicine Cardiovascular Disease
PROC: 0J9D0ZZ Drainage of Right Upper Arm Subcutaneous Tissue and Fascia, Open Approach (ICD-10-PCS; 2024-07-01)
PROC: 5A09357 Assistance with Respiratory Ventilation, Less than 24 Consecutive Hours, Continuous Positive Airway Pressure (ICD-10-PCS; 2024-07-02)
DX: I11.0 Hypertensive heart disease with heart failure (principal); I50.33 Acute on chronic diastolic (congestive) heart failure; J96.22 Acute and chronic respiratory failure with hypercapnia; J96.01 Acute respiratory failure with hypoxia; E66.2 Morbid (severe) obesity with alveolar hypoventilation; L02.411 Cutaneous abscess of right axilla; E87.3 Alkalosis; Z68.44 Body mass index [BMI] 60.0-69.9, adult; E11.65 Type 2 diabetes mellitus with hyperglycemia; J45.909 Unspecified asthma, uncomplicated; N50.89 Other specified disorders of the male genital organs; F17.210 Nicotine dependence, cigarettes, uncomplicated; F31.9 Bipolar disorder, unspecified; F41.9 Anxiety disorder, unspecified; F43.10 Post-traumatic stress disorder, unspecified; G47.00 Insomnia, unspecified; B96.89 Other specified bacterial agents as the cause of diseases classified elsewhere; Z79.899 Other long term (current) drug therapy; Z79.84 Long term (current) use of oral hypoglycemic drugs
CPT/HCPCS: 36600; 71046; 74177; 76870; 80048; 80053; 80061; 82043; 82570; 82805; 82962; 83036; 83735; 83880; 84100; 84156; 84443; 84484; 85025; 85027; 87070; 87075; 87076; 87205; 93005; 93306; 93976; 94060; 94640; 94660; 94762; 96374; 97163; 97167; 99285; 99406; Q9950; Q9967

== ENCOUNTER → 2024-09-13 13:19 | Outpatient (REF) | payer OTHER, SELFPAY | LOC: DHSLP 13:19 | PROVIDERS: ATTENDING PHYSICIAN Internal Medicine Critical Care Medicine; FAMILY PHYSICIAN Family Medicine | DX: G47.33 Obstructive sleep apnea (adult) (pediatric) (principal); R09.02 Hypoxemia | CPT/HCPCS: 95810 ==